=== PATIENT | female | born 1960 | race Caucasian/White ===

== ENCOUNTER 2019-06-29 14:53 | Emergency (ER) | payer OTHER, SELFPAY ==
--- NOTE | ~2019-06-29 | XR_ITS ---
EXAMINATION: XR ankle RT min 3V EXAM DATE: 06/29/2019 15:18 INDICATION: Initial encounter following injury, with pain of the right ankle. TECHNIQUE: Right ankle frontal, lateral and oblique projections obtained and reviewed. There is no p rior study for comparison. FINDINGS: There is acute nondisplaced fracture through the tip of the lateral malleolus, closed post traumatic finding. There is overlying soft tissue swelling. No other acute findings. Mortise relatio nship appears intact. IMPRESSION: Acute nondisplaced right lateral malleolar tip fracture. Reviewed, dictated and finalized at location A.
[2019-06-29 15:08] VITALS: BP 148/119; PULSE 90; RESP 18; TEMP 36.7; O2SAT 100
--- NOTE | 2019-06-29 15:20 | ED.ABDPAIN ---
HPI - Abdominal Pain General Chief Complaint: Extremity Injury, Lower Stated Complaint: ankle injury Time Seen by Provider: 06/29/19 14:59 Source: patient Mode of arrival: ambulatory Limitations: no limitations History of Present Illness HPI narrative: Patient is a 59-year-old female who presents with right ankle pain with bruising and swelling noting that she rolled the ankle while walking 2 days ago was able to bear weight but does have noted increasing ability to do so. Pain is a moderate aching pain worse with weightbearing and activity. Patient denies any other complaints or injuries and on arrival is in the room in no distress Related Data Allergies Allergy/AdvReac Type Severity Reaction Status Date / Time codeine Allergy Mild unknown Verified 06/02/19 14:18 Review of Systems Review of Systems: Narrative: CONSTITUTIONAL: Denies fever, chills, or sweats. SKIN: Positive for bruising and swelling MUSCULOSKELETAL: Positive for bruising and swelling and right ankle pain NEUROLOGIC: Denies numbness or tingling PMFSH Past Medical History Medical History Anxiety Depression Essential (primary) hypertension Hyperlipidemia Impetigo Surgical History Surgical History No history of previous surgery Family History Family History (Updated 11/16/13 @ 07:13 by DOCTOR UNKNOWN) Father Family history of arthritis Social History Social History Smoking status: Heavy tobacco smoker Second hand tobacco smoke exposure: Yes Smoking end date: 03/22/09 Alcohol intake: current Exam Narrative: Exam Narrative: GENERAL: Well-appearing, well-nourished, and in no acute distress. HEAD: Normocephalic, atraumatic. EYES: PERRLA and EOMI. ENT: Nares clear, no rhinorrhea or epistaxis. Mucous membranes moist. EXTREMITIES: Bruising swelling and tenderness of the right ankle joint no tenderness of the knee SKIN: Warm, dry, no rash. NEURO: No focal deficits. Alert and oriented x3. Cranial nerves II through XII grossly intact. Neurovascularly intact PSYCH: Normal mood and affect. Course Vital Signs Vital signs: Vital Signs Temperature 98.1 F 06/29/19 15:08 Pulse Rate 90 06/29/19 15:08 Respiratory Rate 18 06/29/19 15:08 Blood Pressure 148/119 H 06/29/19 15:08 Pulse Oximetry 100 06/29/19 15:08 Temperature 98.1 F 06/29/19 15:08 Pulse Rate 90 06/29/19 15:08 Respiratory Rate 18 06/29/19 15:08 Blood Pressure 148/119 H 06/29/19 15:08 Pulse Oximetry 100 06/29/19 15:08 MDM - Abdominal Pain MDM Narrative Medical decision making narrative: Patients injury or pain is consistent with musculoskeletal etiology. No signs of neurological or vascular compromise on exam. Compartments and tisues are soft without signs of compartment syndrome. Pain is felt appropriate for further evaluation on an outpatient basis. Imaging Data Radiologist's impression: ITS Impressions Ankle X-Ray 06/29/19 15:23 IMPRESSION: Acute nondisplaced right lateral malleolar tip fracture. Discharge Plan Discharge Clinical Impression: Ankle fracture, right Patient Disposition: Home, Self-Care Condition: Stable Instructions: Antibiotic Form, Ankle Fracture (DC) Additional Instructions: Wear brace with no weight on the affected leg until able to bear weight without pain. Ice and elevate extremity. Pain medication as needed and directed. Follow-up with orthopedic surgery tomorrow to set up for reevaluation. Return if symptoms worsen or concerns or any increase in redness swelling pain fever over 100.5 or any loss of feeling or function in the extremity Prescriptions: No Action sulfamethoxazole-trimethoprim [Bactrim DS] 800-160 mg tablet 1 tablet PO Q12H Qty: 14 RF: 0 sertraline [Zoloft] 50 mg tablet 150 mg PO DAILY
== END 2019-06-29 16:32 | disposition home or self-care (01) ==
PROVIDERS: Emergency Provider Emergency Medicine
DX: S82.61XA Displaced fracture of lateral malleolus of right fibula, initial encounter for closed fracture (principal); E78.5 Hyperlipidemia, unspecified; I10 Essential (primary) hypertension; F41.9 Anxiety disorder, unspecified; X50.9XXA Other and unspecified overexertion or strenuous movements or postures, initial encounter
CPT/HCPCS: 29515; 73610; 99284

== ENCOUNTER 2019-12-02 13:09 | Emergency (ER) | payer OTHER, SELFPAY ==
[2019-12-02 13:20] VITALS: BP 142/82; PULSE 92; RESP 20; TEMP 36.4; O2SAT 99
--- NOTE | 2019-12-02 13:27 | ED.WOUNDLAC ---
HPI - Wound/Laceration General Chief Complaint: Wound/Laceration Stated Complaint: pos nose infection Time Seen by Provider: 12/02/19 13:27 Source: patient History of Present Illness HPI narrative: patient presents with a month long history of sinus pressure and sore to the base of the right nares. Patient states she has taken Augmentin and recently finished Levaquin and prednisone. Patient continues to have problems with sore to right nares. Patient continues to have pressure to right side of face. no fever no cough no body aches. patient is not taking anything over the counter for her symptoms. Related Data Allergies Allergy/AdvReac Type Severity Reaction Status Date / Time codeine Allergy Mild unknown Verified 08/09/19 10:30 Review of Systems Review of Systems: Narrative: CONSTITUTIONAL: Denies fever, chills, or sweats. EYES: Denies visual changes, redness, or discharge. ENT: Denies rhinorrhea, congestion, sore throat, or otalgia.sore to base of right nare right sided facial tenderness CARDIOVASCULAR: Denies chest pain, palpitations, or edema. RESPIRATORY: Denies cough or dyspnea. GASTROINTESTINAL: Denies abdominal pain, nausea, vomiting, or diarrhea. GENITOURINARY: Denies dysuria or hematuria. SKIN: Denies rash or itching. MUSCULOSKELETAL: Denies back pain, joint pain, or myalgia. NEUROLOGIC: Denies headache, numbness, or weakness. PSYCHIATRIC: Denies anxiety or depression. [facility] Social History Social History Smoking packs per day: 0.15 Smoking cigarettes per day: 3.0 Smoking status: Light tobacco smoker Second hand tobacco smoke exposure: Yes Smoking end date: 03/22/09 Alcohol intake: never Substance use: unknown Additional occupation/education comments: [employer] Gender identity (if verbalized by the patient): Female Comments At time of signature, agree with nursing past medical, surgical, social and family history. There is no relevant family history pertinent to the presenting complaint Exam Narrative: Exam Narrative: GENERAL: Well-appearing, well-nourished, and in no acute distress. HEAD: Normocephalic, atraumatic. EYES: PERRLA and EOMI. ENT: Nares clear, no rhinorrhea or epistaxis. Mucous membranes moist.0.5 mm reddened tender area to base of right nare no drainage . mild maxillary tenderness no pharyngeal erythema mild post nasal drainage. NECK: Supple. CHEST: Clear to auscultation. No respiratory distress. HEART: Regular rate and rhythm. No murmur heard. Normal peripheral pulses. ABDOMEN: Soft, nontender, nondistended, normal active bowel sounds. EXTREMITIES: Normal range of motion. No edema. SKIN: Warm, dry, no rash. NEURO: No focal deficits. Alert and oriented x3. [place] Coma Scale Eye Opening: Spontaneous 4 [place] Coma Scale Motor: Obeys Commands 6 Leeanne Coma Scale Verbal: Oriented 5 [place] Coma Scale Total 15 Course Vital Signs Vital signs: Vital Signs Temperature 36.4 C 12/02/19 13:20 Pulse Rate 92 12/02/19 13:20 Respiratory Rate 12/02/19 13:20 Blood Pressure 142/82 H 12/02/19 13:20 Pulse Oximetry 99 12/02/19 13:20 Temperature 36.4 C 12/02/19 13:20 Pulse Rate 92 12/02/19 13:20 Respiratory Rate 12/02/19 13:20 Blood Pressure 142/82 H 12/02/19 13:20 Pulse Oximetry 99 12/02/19 13:20 Please YASMINE schedule a followup visit with your personal physician for further evaluation and treatment. Including recheck and discussion of your blood pressure. If your symptoms persist, change or worsen significantly before you can contact your personal physician then please, without delay, go to the emergency department for further evaluation MDM - Wound/Laceration Differential Diagnosis Differential diagnosis: Likely laceration, abscess, abrasion and other Critical Care Time Critical Care Time Critical Care Time: No Discharge Plan Discharge Clinical Impression: Nasal s
== END 2019-12-02 13:34 | disposition home or self-care (01) ==
PROVIDERS: Emergency Provider Nurse Practitioner Family; PCP Family Medicine
DX: J34.89 Other specified disorders of nose and nasal sinuses (principal); J32.9 Chronic sinusitis, unspecified; F17.210 Nicotine dependence, cigarettes, uncomplicated; I25.10 Atherosclerotic heart disease of native coronary artery without angina pectoris; E78.00 Pure hypercholesterolemia, unspecified; I10 Essential (primary) hypertension; F32.9 Major depressive disorder, single episode, unspecified
CPT/HCPCS: 99213; G0463

== ENCOUNTER 2020-04-20 10:18 | Emergency (ER) | payer OTHER, SELFPAY ==
--- NOTE | 2020-04-20 10:24 | ED.GENADULT ---
HPI - General Adult General Chief complaint: Upper Respiratory Infection Stated complaint: POS nose infection Time Seen by Provider: 04/20/20 10:25 Source: patient Mode of arrival: ambulatory Limitations: no limitations History of Present Illness HPI narrative: 59-year-old female patient presents to [facility] with complaints of sores to the nostrils as well as feeling like there are sores inside her nostrils. Patient states she has been dealing with this on again off again for the past 7 months. Patient also reports pressure underneath her eyes and a headache. Denies any fevers that she is aware of. Patient denies any coughing, chest pain or shortness of breath. Patient states she was treated with antibiotics early on and it did help however she has been using Bactroban which she states has not helped she is also reported that she has been using Abreva to the nose which she states does help with the pain at times. Patient also states that she did use Flonase and Claritin every once about but nothing consistent. Related Data Allergies Allergy/AdvReac Type Severity Reaction Status Date / Time codeine Allergy Mild Vomiting Verified 04/20/20 10:44 Review of Systems Review of Systems: Narrative: CONSTITUTIONAL: Denies fever, chills, or sweats. EYES: Denies visual changes, redness, or discharge. ENT: Positive rhinorrhea, congestion, denies sore throat, or otalgia. CARDIOVASCULAR: Denies chest pain, palpitations, or edema. RESPIRATORY: Denies cough or dyspnea. GASTROINTESTINAL: Denies abdominal pain, nausea, vomiting, or diarrhea. GENITOURINARY: Denies dysuria or hematuria. SKIN: Denies rash or itching. MUSCULOSKELETAL: Denies back pain, joint pain, or myalgia. NEUROLOGIC: Positive headache, denies numbness, or weakness. PSYCHIATRIC: Denies anxiety or depression. [facility] Past Medical History Medical History (Updated 04/20/20 @ 10:49 by GONZÁLEZ Kirkland) Anxiety Arthritis Depression Essential (primary) hypertension Fracture of distal fibula (06/27/19) High cholesterol Hyperlipidemia Hypertension Impetigo Seasonal allergies Surgical History Surgical History No history of previous surgery Family History Family History Father Family history of arthritis Other Hypertension Social History Social History Smoking packs per day: 0.15 Smoking cigarettes per day: 3.0 Smoking status: Light tobacco smoker Second hand tobacco smoke exposure: Yes Smoking end date: 03/22/09 Alcohol intake: never Substance use: unknown 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 There is no relevant family history pertinent to the presenting complaint. Exam Narrative: Exam Narrative: GENERAL: Well-appearing, well-nourished, and in no acute distress. HEAD: Normocephalic, atraumatic. Tenderness noted to maxillary sinuses on palpation EYES: PERRLA and EOMI. ENT: Nares with erythema and edema noted bilaterally, there are some sores noted to the outside of bilateral nostrils. No rhinorrhea or epistaxis. Mucous membranes moist. Posterior pharynx with no erythema, tonsillar Tobin, exudates or lesions present. Bilateral TMs are clear no erythema or foreign bodies in the canal. NECK: Supple. No lymphadenopathy CHEST: Clear to auscultation. No respiratory distress. HEART: Regular rate and rhythm. No murmur heard. Normal peripheral pulses. ABDOMEN: Soft, nontender, nondistended, normal active bowel sounds. EXTREMITIES: Normal range of motion. No edema. SKIN: Warm, dry, no rash. NEURO: No focal deficits. Alert and oriented x3. Course Vital Signs Vital signs: Vida
[2020-04-20 10:35] VITALS: BP 111/78; PULSE 84; RESP 18; TEMP 37.2; O2SAT 97
== END 2020-04-20 11:08 | disposition home or self-care (01) ==
PROVIDERS: Emergency Provider Nurse Practitioner Family; PCP Nurse Practitioner Family
DX: J32.0 Chronic maxillary sinusitis (principal); F17.210 Nicotine dependence, cigarettes, uncomplicated; M19.90 Unspecified osteoarthritis, unspecified site; F41.9 Anxiety disorder, unspecified; F32.9 Major depressive disorder, single episode, unspecified; I10 Essential (primary) hypertension; E78.00 Pure hypercholesterolemia, unspecified; E78.5 Hyperlipidemia, unspecified
CPT/HCPCS: 99213; G0463

== ENCOUNTER 2021-08-31 12:56 | Emergency (ER) | payer OTHER, SELFPAY ==
[2021-08-31 12:58] VITALS: BP 155/103; PULSE 91; RESP 16; TEMP 36.7; O2SAT 100
--- NOTE | 2021-08-31 13:23 | ED.SKABFB ---
HPI - Skin/Abscess/Foreign Bdy General Chief complaint: Skin/Abscess/Foreign Body Stated complaint: Pain/Swelling In Nose since 08/20/21 Time Seen by Provider: 08/31/21 13:09 Source: patient and RN notes reviewed Mode of arrival: ambulatory Limitations: no limitations History of Present Illness HPI narrative: This is a 61 year old female who presents for evaluation of chronic sinusitis. PAtient states for 2 years she has right side pressure with sinus drainage. She also reports postnasal drainage for 2 years. She also reports foul odor and drainage for 2 years. She was seen by a server support technician 1 week ago, and she reports they performed a biopsy and she was placed on antibiotics. She is taking doxycycline. She denies fever, chills, nausea, vomiting or headache. She describes her sinus pain as burning. Related Data Allergies Allergy/AdvReac Type Severity Reaction Status Date / Time codeine Allergy Mild Vomiting Verified 05/19/21 14:19 Review of Systems Review of Systems: All systems reviewed & are unremarkable except as noted in HPI and below PMFSH Past Medical History Medical History (Updated 08/31/21 @ 13:32 by Jodi Joyner MD) Anxiety Arthritis Depression Essential (primary) hypertension Fracture of distal fibula (06/27/19) High cholesterol Hyperlipidemia Hypertension Impetigo Seasonal allergies Surgical History Surgical History (System 05/19/21 @ 14:19 by Maxine Hurst) No history of previous surgery Family History Family History (System 05/19/21 @ 14:19 by Maxine Hurst) Father Family history of arthritis Other Hypertension Social History Social History (System 05/19/21 @ 14:19 by Maxine Hurst) Smoking packs per day: 0.15 Smoking cigarettes per day: 3.0 Second hand tobacco smoke exposure: Yes Smoking end date: 03/22/09 Alcohol intake: never Substance use: unknown Additional occupation/education comments: [employer] Gender identity (if verbalized by the patient): Female Exam Const: General: no acute distress Nutritional Appearance: well nourished Orientation/consciousness: patient oriented x3 HENMT: General nose exam: Nasal discharge present mucoid and no epistaxis Face and sinus: sinuses nontender Mouth: Yes Normal oral and palatal mucosa present, Yes lip normal and Yes moist mucous membranes Teeth and gingiva: dentition normal Throat: posterior oropharynx normal Eyes: Pupils: Equal, round and reactive pupils present Other: disconjugate gaze which is baseline Chest: Chest palpation & inspection: normal inspection of the chest Resp: Effort & Inspection: normal respiratory effort Skin: General skin exam: normal color Rashes: no rashes Wounds: no wounds Neuro: General: patient oriented x3, moves all extremities and CN's II-XI intact bilaterally Course Reevaluation(s) Reevaluation #1: I Discussed with patient this is chronic sinusitis. Will change antibiotics and discussed she will need to follow up with ENT and her server support technician. Date: 08/31/21 Time: 13:29 Vital Signs Vital signs: Vital Signs Temperature 98.1 F 08/31/21 12:58 Pulse Rate 91 08/31/21 12:58 Respiratory Rate 16 08/31/21 12:58 Blood Pressure 155/103 H 08/31/21 12:58 Pulse Oximetry 100 08/31/21 12:58 Oxygen Delivery Room Air 08/31/21 12:58 Temperature 98.1 F 08/31/21 12:58 Pulse Rate 91 08/31/21 12:58 Respiratory Rate 16 08/31/21 12:58 Blood Pressure 155/103 H 08/31/21 12:58 Pulse Oximetry 100 08/31/21 12:58 Oxygen Delivery Room Air 08/31/21 12:58 Discharge Plan Discharge Clinical Impression: Chronic sinusitis Patient Disposition: Home, Self-Care Condition: Stable Instructions: Antibiotic Form, Sinusitis (ED) Additional Instructions: I recommend you take new antibiotics and antihistamine. I also recommend that you follow up with ear nose and throat doctor. You may need to follow up with
== END 2021-08-31 13:49 | disposition home or self-care (01) ==
LOC: ANHED 13:43
PROVIDERS: Emergency Provider General Practice
DX: J32.9 Chronic sinusitis, unspecified (principal); I10 Essential (primary) hypertension; E78.5 Hyperlipidemia, unspecified; M19.90 Unspecified osteoarthritis, unspecified site; F41.9 Anxiety disorder, unspecified; F32.A Depression, unspecified
CPT/HCPCS: 99283

== ENCOUNTER 2022-10-08 09:36 | Emergency (ER) | payer OTHER, SELFPAY ==
[2022-10-08 09:46] VITALS: BP 126/69; PULSE 114; RESP 18; TEMP 37.6; O2SAT 100
--- NOTE | 2022-10-08 10:04 | ED.EXTPRO ---
HPI - Extremity Problem General Chief complaint: Extremity Problem,Nontraumatic Stated complaint: Lt Groin and Hip Pain Time Seen by Provider: 10/08/22 10:05 Source: patient Mode of arrival: ambulatory Limitations: no limitations History of Present Illness HPI Narrative: 62 y/o female presented for c/o left groin pain radiating to mid thigh for 4 days. States she thinks the injury occurred while lifting 's wheelchair, says she may have twisted wrong. Patient reports she is unable to bear weight, sit or lift the leg without pain. Pt was unable to sleep last night due to pain. Taking vane back and body and advil pm without relief. Denies rash, numbness, tingling or weakness to the left leg. Related Data Home Medications Medication Instructions Recorded Confirmed lisinopril 20 mg tablet 20 mg PO DAILY 10/08/22 10/08/22 simvastatin 40 mg tablet 40 mg PO DAILY 10/08/22 10/08/22 Allergies Allergy/AdvReac Type Severity Reaction Status Date / Time codeine Allergy Mild Vomiting Verified 10/08/22 09:55 Review of Systems Review of Systems: CONSTITUTIONAL: Denies body aches, fever, chills EYES: Denies visual changes ENT: Denies rhinorrhea, congestion CARDIOVASCULAR: Denies chest pain, palpitations, or edema. RESPIRATORY: Denies cough or dyspnea. GASTROINTESTINAL: Denies abdominal pain, nausea, vomiting, or diarrhea. SKIN: Denies rash, itching, or wounds. MUSCULOSKELETAL: Reports left groing/thigh pain Denies back pain, joint pain, or myalgia. NEUROLOGIC: Denies headache, numbness, tingling, or weakness. All systems reviewed & are unremarkable except as noted in HPI and below PMFSH Past Medical History Medical History Anxiety Arthritis Depression Essential (primary) hypertension Fracture of distal fibula (06/27/19) High cholesterol Hyperlipidemia Hypertension Impetigo Seasonal allergies Surgical History Surgical History No history of previous surgery Family History Family History Father Family history of arthritis Other Hypertension Social History Social History Smoking packs per day: 0.15 Smoking cigarettes per day: 3.0 Second hand tobacco smoke exposure: Yes Smoking end date: 03/22/09 Alcohol intake: never Substance use: unknown Occupation/Education: occupation 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 Please see nursing chart for further information. There is no relevant family history pertinent to the presenting complaint Exam Narrative: GENERAL: Appears in mild pain, in no acute distress. HEAD: Normocephalic, atraumatic. EYES: conjunctivae clear CHEST: Speaks in full sentences. No respiratory distress. HEART: Regular rate and rhythm. Normal and equal peripheral pulses. EXTREMITIES: LLE has limited strength and decreased range of motion at the hip due to reported pain with any movement of the hip or groin area. Reports pain with light palpation over the anterior thigh and hip flexor area. No posterior hip tenderness. No edema. Normal sensation. No open wounds, skin tenting or obvious deformity; alignment normal, pulse palpable and equal bilaterally, skin warm, dry, pink. Capillary refill less than 3 seconds. Patient is ambulatory without assistive device, slow gait. Able to tolerate sitting position. SKIN: Warm, dry, no rash. NEURO: Alert and oriented x3. PSYCH: Normal mood and affect Course Course Emergency Course: Patient is aware of diagnosis, understands and agrees to treatment plan. Anticipatory guidance giv
== END 2022-10-08 10:18 | disposition home or self-care (01) ==
PROVIDERS: Emergency Provider Nurse Practitioner Family; PCP Family Medicine Sports Medicine
DX: M79.652 Pain in left thigh (principal); Z87.891 Personal history of nicotine dependence; M19.90 Unspecified osteoarthritis, unspecified site; I10 Essential (primary) hypertension; E78.00 Pure hypercholesterolemia, unspecified; E78.5 Hyperlipidemia, unspecified; F41.9 Anxiety disorder, unspecified; F32.A Depression, unspecified
CPT/HCPCS: 99213; G0463

== ENCOUNTER 2022-10-12 15:53 | Inpatient (IN) | payer OTHER, SELFPAY ==
[2022-10-12] VITALS (22 sets, daily range): BP systolic 109–129; BP diastolic 53–90; PULSE 115–165; RESP 16–38; TEMP 37.6; O2SAT 90–100; BMI 22.8
--- NOTE | ~2022-10-12 | XR_ITS ---
Portable chest x-ray Comparison: 10/14/2022 Clinical History: Intubation Findings: Endotracheal tube, NG tube, and right IJ line are unchanged. Minimal left pleural effusion is present. Right lung clear. Cardiomediastinal silhouette is stable. Bones and soft tissues are un remarkable. Impression: Support tubes, as above. Minimal left pleural effusion. Reviewed, dictated and finalized at location . Impression: Support tubes, as above. Minimal left pleural effusion.
--- NOTE | ~2022-10-12 | XR_ITS ---
Portable chest x-ray Comparison: 10/12/2022 Clinical History: Central line placement Findings: Endotracheal tube, NG tube, and right IJ line are in satisfactory positions. No pneumothor ax. Possible minimal groundglass opacity bilaterally. Cardiomediastinal silhouette is stable. Bones and soft tissues are unremarkable. Impression: Support tubes, as above. No pneumothorax. Possible mild ground glass pulmonary disease. Correlate for pulmonary edema or infection. Reviewed, dictated and finalized at location . Impression: Support tubes, as above. No pneumothorax. Possible mild ground glass pulmonary disease. Correlate for pulmonary edema or infection.
--- NOTE | ~2022-10-12 | XR_ITS ---
Supine portable view of the abdomen Clinical history: NG tube placement Findings: NG tube is in satisfactory position. Bowel gas pattern is nonspecific. No evidence for obst ruction or free air. No abnormal mass lesion or calcification is seen. Osseous structures are intact. Impression: NG tube in satisfactory position. Reviewed, dictated and finalized at location . Impression: NG tube in satisfactory position.
--- NOTE | ~2022-10-12 | US_ITS ---
Renal-Bladder ultrasound Clinical History: Acute kidney injury Technique: Real-time sonographic imaging of the kidneys and urinary bladder was performed. Findings: The right kidney measures 10.3 cm in length and the left kidney measures 10 point cm. There is no hydronephrosis or renal calculus identified. Renal cortical echogenicity is within normal limi ts. No solid renal mass lesion is identified. Small right renal cysts are present. Minimal right mily nephric fluid present. The urinary bladder is relatively collapsed, with Pizano catheter in place. Impression: No hydronephrosis. Minimal right perinephric fluid. Reviewed, dictated and finalized at location . Impression: No hydronephrosis. Minimal right perinephric fluid.
--- NOTE | ~2022-10-12 | CT_ITS ---
Clinical Indication: Fever CT Scan of the Chest, Abdomen, and Pelvis without Contrast: Technique: Contiguous sections were acquired throughout the chest, abdomen, and pelvis without IV con trast administration. Dose reduction technique was used on this scan by utilizing automated exposure control and iterative reconstruction technique. The dose-length product (DLP) was 813.50 mGy-cm. Comparison: 10/12/2022 Findings: There is no evidence of any significant mediastinal, hilar or axillary lymphadenopathy. The mediastin al soft tissues appear normal. No pericardial effusion. There are small bilateral pleural effusions with probable bibasilar atelectasis. The liver, spleen, pancreas, gallbladder, and adrenal glands are within normal limits. There is mild right hydronephrosis, with bilateral perinephric stranding. No renal or ureteral stones evident. No e vidence of aortic aneurysm. No lymphadenopathy. No bowel obstruction or bowel wall thickening. There is no evidence to suggest acute appendicitis. Small bubbles of air present in the urinary bladder. No adnexal mass seen. Small amount of pelvic asc ites. Impression: Small bilateral pleural effusions with bibasilar atelectasis. Mild right hydronephrosis and bilateral positioning. Noncontrast CT is insensitive for pyelonephritis . Correlate clinically and with urinalysis. Consider contrast enhanced CT to evaluate for pyelonephri tis, as indicated. Small amount of ascites, nonspecific. Small bubble of air in urinary bladder, most likely iatrogenic. Correlate clinically. Reviewed, dictated and finalized at [facility]. Impression: Small bilateral pleural effusions with bibasilar atelectasis. Mild right hydronephrosis and bilateral positioning. Noncontrast CT is insensit gregor for pyelonephritis. Correlate clinically and with urinalysis. Consider cont rast enhanced CT to evaluate for pyelonephritis, as indicated. Small amount of ascites, nonspecific. Small bubble of air in urinary bladder, most likely iatrogenic. Correlate clini chucky.
--- NOTE | ~2022-10-12 | CT_ITS ---
EXAMINATION: CT cervical spine wo con DATE: 10/12/2022 16:42 INDICATION: Altered mental status TECHNIQUE: Computed tomography (CT) of the cervical spine was performed without intravenous contrast. Automated exposure control and iterative reconstruction technique were employed. The dose-length pro duct was 505.12 mGy-cm. COMPARISON: None FINDINGS: Straightening of the normal cervical lordosis. 2 mm anterolisthesis C3 on C4 and T1 on T2. Chronic ap pearing mild anterior wedging at C3-C5. No acute fractures identified. Moderate disc height loss at C 5-C6 and severe disc height loss with degenerative endplate changes at T3-T4. Mild disc height loss a t C3-C4 and T1-T2. Severe right-sided and moderate left-sided uncovertebral osteoarthritis at C5-C6. Small posterior disc ossified complexes result in mild central canal stenosis at this level. Mild unc overtebral osteoarthritis bilaterally at multiple additional cervical levels. There is also multileve l facet osteoarthritis, severe on the left at C2-C3 through C4-C5 and on the right at T1-T2, moderate on the left at C5-C6 through C7-T1 and mild at the remaining cervical and upper thoracic levels on t he left and right. This contributes to moderate neural foraminal stenosis on the left at C3-C4 throug h C5-C6 and on the right at C5-C6 with mild neural foraminal stenosis at several additional levels bi laterally in the cervical and upper thoracic spine. Severe osteoarthritis at the bilateral sternoclav icular joints atherosclerotic calcifications at the bilateral carotid bulbs. Cervical soft tissues ar e otherwise unremarkable. Mild dependent atelectasis in the posterior upper lobes. IMPRESSION: 1. Moderate to severe cervical and upper thoracic spondylosis. No acute osseous abnormality. Reviewed, dictated and finalized at location A.
--- NOTE | ~2022-10-12 | US_ITS ---
US abdomen limited DATE: 10/17/2022 08:52 INDICATION: Elevated liver function tests TECHNIQUE: Real-time imaging of liver, pancreas, gallbladder COMPARISON: 10/08/2022 CTA chest abdomen pelvis FINDINGS: No hepatic space-occupying mass lesion is evident. No pancreatic mass lesion is evident. Normal hepatopedal portal venous flow direction. Common bile duct measures 5.8 mm, within normal limits. No gallstones or gallbladder wall thickening are evident. Negative sonographic Raymond's sign. IMPRESSION: No significant abnormality Reviewed, dictated and finalized at Location [facility]. Reviewed, dictated and finalized at location A. IMPRESSION: No significant abnormality
--- NOTE | ~2022-10-12 | MR_ITS ---
EXAMINATION: MR brain/brain stem wo con DATE: 10/20/2022 17:22 INDICATION: AMS TECHNIQUE: Magnetic resonance imaging (MRI) of the brain and brainstem was performed without intraven ous contrast. Sequences included sagittal and axial T1-weighted SE, axial diffusion-weighted FS EPI A SSET, axial T2*-weighted GRE, axial T2-weighted FLAIR Propeller, and axial T2-weighted Propeller. Sasha arent diffusion coefficient (ADC) maps were created. COMPARISON: CT brain 10/12/2022. FINDINGS: Multiple areas of focal diffusion restriction involving gyri in the right occipital and posterior fro ntal lobes, the right centrum semiovale, left anterior and posterior periventricular white matter, an d the posterior limb of the left internal capsule. No MRI evidence of hemorrhage or extra-axial colle ction. No suspicious foci of susceptibility to suggest prior intraparenchymal hemorrhage. Normal whit e matter signal. No evidence of advanced or lobar predominant parenchymal volume loss. The basilar ci sterns are patent. Flow voids are preserved. Paranasal sinuses are within normal limits. Globes and o rbital contents are within normal limits. IMPRESSION: Multiple areas of focal acute infarct in multiple lobes and both hemispheres, likely representing emb olic infarcts. Reviewed, dictated and finalized at location K. IMPRESSION: Multiple areas of focal acute infarct in multiple lobes and both hemispheres, l brindaely representing embolic infarcts.
--- NOTE | ~2022-10-12 | XR_ITS ---
Portable chest x-ray Comparison: 04/12/2013 Clinical History: Tube placement Findings: Endotracheal tube and NG tube are in satisfactory positions. Questionable minimal central pulmonary edema/congestive change. No pleural effusion. Cardiomediastinal silhouette is stable. Bone s and soft tissues are unremarkable. Impression: Support tubes in place, as above. Possible minimal central pulmonary edema/central congestive change. Reviewed, dictated and finalized at location . Impression: Support tubes in place, as above. Possible minimal central pulmonary edema/central congestive change.
--- NOTE | ~2022-10-12 | US_ITS ---
EXAMINATION: US venous doppler [facility] DATE: 10/22/2022 20:25 INDICATION: Bilateral lower limb swelling and mottling TECHNIQUE: Hudson scale images without and with compression and Doppler images of the bilateral lower e xtremity veins were obtained. COMPARISON: None FINDINGS: The right common femoral vein, profunda femoral vein, femoral vein, popliteal vein, peroneal trunk, p osterior tibial veins, and greater saphenous vein are patent. The left common femoral vein, profunda femoral vein, femoral vein, popliteal vein, peroneal trunk, po sterior tibial veins, and greater saphenous vein are patent. IMPRESSION: 1. Patent bilateral lower extremity veins. No evidence of deep venous thrombosis. Reviewed, dictated and finalized at location F. IMPRESSION: 1. Patent bilateral lower extremity veins. No evidence of deep venous thrombosi s.
--- NOTE | ~2022-10-12 | XR_ITS ---
EXAMINATION: XR chest PICC line DATE: 10/24/2022 12:08 INDICATION: PICC line insertion TECHNIQUE: frontal view of the chest was obtained. COMPARISON: Chest radiograph dated 10/18/[address] dated 10/19/2022 FINDINGS: Right upper extremity peripherally inserted central venous catheter (PICC) tip at the superior cavoa trial junction. Lung volumes are mildly decreased. No focal airspace opacities, pulmonary edema, pleu ral effusion or pneumothorax. Mild cardiomegaly. IMPRESSION: 1. Right upper extremity PICC line with distal tip at the superior cavoatrial junction. 2. Mild cardiomegaly. Reviewed, dictated and finalized at location A. IMPRESSION: 1. Right upper extremity PICC line with distal tip at the superior cavoatrial j unction. 2. Mild cardiomegaly.
--- NOTE | ~2022-10-12 | CT_ITS ---
EXAMINATION: CT brain wo con DATE: 10/12/2022 16:42 INDICATION: Altered mental status TECHNIQUE: Computed tomography (CT) of the head was performed without intravenous contrast. Sagittal and coronal reconstructions were performed. The mA was adjusted according to patient size. Iterative reconstruction technique was employed. The dose-length product was 605.33 mGy-cm. COMPARISON: None FINDINGS: No acute intracranial hemorrhage, acute infarction or abnormal extra axial fluid collection. There is mild scattered white matter hypoattenuation consistent with chronic small vessel ischemic disease. Ventricles are normal and symmetric. No mass/mass effect. Mild mucosal thickening the anterior right ethmoid air cells. The orbits and mastoid air cells are normal. Intracranial calcified cerebral ather osclerosis is noted. IMPRESSION: 1. No acute intracranial process. 2. Mild scattered white matter hypoattenuation consistent with chronic small vessel schema disease. Reviewed, dictated and finalized at location A. IMPRESSION: 1. No acute intracranial process. 2. Mild scattered white matter hypoattenuation consistent with chronic small ve ssel schema disease.
--- NOTE | ~2022-10-12 | XR_ITS ---
Portable chest x-ray Comparison: 10/15/2022 Clinical History: Respiratory failure Findings: Endotracheal tube, NG tube, and right IJ line are in satisfactory positions. Small left pl eural effusion is present. Right lung essentially clear. Cardiomediastinal silhouette is stable. Bon es and soft tissues are unremarkable. Impression: Support tubes, as above. Small left pleural effusion. Reviewed, dictated and finalized at location M. Impression: Support tubes, as above. Small left pleural effusion.
--- NOTE | ~2022-10-12 | XR_ITS ---
Portable chest x-ray Comparison: 10/13/2022 Clinical History: Tube placement Findings: Endotracheal tube, NG tube, and right IJ line are in satisfactory positions. Probable mini mal left pleural effusion and left basilar atelectatic change. Right lung clear. Cardiomediastinal s ilhouette is stable. Bones and soft tissues are unremarkable. Impression: Support tubes, as above. Probable minimal left pleural effusion and left basilar atelectasis. Reviewed, dictated and finalized at location . Impression: Support tubes, as above. Probable minimal left pleural effusion and left basilar atelectasis.
--- NOTE | ~2022-10-12 | XR_ITS ---
AP and lateral views of the left hip Clinical history: Pain Findings: No acute fracture or dislocation is seen. Osseous alignment is anatomic. Left hip joint and left SI joint are intact. Soft tissues are unremarkable. Impression: No significant abnormality is seen. Reviewed, dictated and finalized at [facility]. Impression: No significant abnormality is seen.
--- NOTE | ~2022-10-12 | CT_ITS ---
Clinical Indication: Shortness of breath, abdominal pain CT Scan of the Chest, Abdomen, and Pelvis with Contrast: Technique: Contiguous sections were acquired throughout the chest, abdomen, and pelvis after intraven ous administration of 100 cc of Omnipaque 350. Dose reduction technique was used on this scan by ventura fenging automated exposure control and iterative reconstruction technique. The dose-length product (DL P) was 989.14 mGy-cm. Findings: There is no evidence of any significant mediastinal, hilar or axillary lymphadenopathy. The mediastin al soft tissues appear normal. No pulmonary embolus identified. No aortic aneurysm or dissection iden tified. There is no evidence of pleural or pericardial effusion. There is mild dependent atelectatic change. There is respiratory motion artifact which otherwise mild ly limits evaluation, but no other gross pulmonary abnormality seen. The liver, spleen, pancreas, gallbladder, and adrenal glands are within normal limits. There is mild perinephric fluid bilaterally, nonspecific. Probable motion artifact versus questionable pyelonephrit is. No evidence of aortic aneurysm. No lymphadenopathy. No bowel obstruction or bowel wall thickening. There is no evidence to suggest acute appendicitis. Urinary bladder is unremarkable. No pelvic mass identified. No ascites. Impression: Questionable pyelonephritis versus motion artifact resulting in heterogeneous appearance of the kidne ys. Correlate clinically and with urinalysis. Mild dependent atelectatic change, otherwise no significant abnormality seen in the lungs. No pulmonary embolus identified. Reviewed, dictated and finalized at [facility]. Impression: Questionable pyelonephritis versus motion artifact resulting in heterogeneous a ppearance of the kidneys. Correlate clinically and with urinalysis. Mild dependent atelectatic change, otherwise no significant abnormality seen in the lungs. No pulmonary embolus identified.
--- NOTE | ~2022-10-12 | XR_ITS ---
XR chest 1V portable DATE: 10/18/2022 05:37 INDICATION: Respiratory distress TECHNIQUE: Portable AP chest on 10/18/2022 at 0524 hours COMPARISON: Portable AP chest on 10/16/2022 at 0533 hours FINDINGS: ET tube in satisfactory position 3.8 cm above jerome. NG tube in stomach. Right internal jugular central venous catheter tip overlies superior vena cava. Cardiomegaly. Left lower lobe infiltrate and/atelectasis. Small left pleural effusion is suggested. Osteopenia. IMPRESSION: Left lower lobe infiltrate or atelectasis and small left pleural effusion Reviewed, dictated and finalized at location A. IMPRESSION: Left lower lobe infiltrate or atelectasis and small left pleural ef fusion
--- NOTE | 2022-10-12 15:59 | ECG_ITS ---
Measurements Intervals [place] Rate: 124 P: 49 [place]: 135 QRS: 44 QRSD: 93 T: 41 QT: 325 QTc: 467 Interpretive Statements SINUS TACHYCARDIA BASELINE ARTIFACT- I, III, AVR, AVL, AVF, V3 ABNORMAL ECG NO PREVIOUS ECG AVAILABLE FOR COMPARISON Electronically Signed On 10-12-2022 16:47:50 CDT by Mark Ordaz D.O.
[2022-10-12 16:06] LABS: Glucose Point of Care 140 mg/dl (65-105)
[2022-10-12 16:21] LABS: Hemoglobin 11.5 g/dL (12.0-15.0); Mean Corpuscular HGB Conc 32.9 g/dl (32-36); Mean Corpuscular Hemoglobin 30.8 pg (26-34); Mean Corpuscular Volume 93.8 fl (80-100); Mean Platelet Volume 10.2 fl (7.4-10.4); Platelet Count Result 308 k/mm3 (150-375); Red Blood Count 3.73 M/mm3 (4.2-5.4); Red Cell Distribution Width 16.1 % (11.5-14.5); White Blood Count 15.6 K/mm3 (4.5-10.0)
--- NOTE | 2022-10-12 16:30 | PC.NURSE ---
Mottling noted to legs. SPO2 77% on 4l NC. Non rebreather mask applied at 15 l.
[2022-10-12 16:32] LABS: Add Urine Microscopic? YES; Appearance Urine Clear (Clear); Bacteria Urine None Seen /hpf; Bilirubin Urine Negative (Negative); Blood Urine 3+ (Negative); Color Urine Yellow (Yellow); Glucose Urine UA Negative (Negative); Hyaline Casts Urine Present /lpf; Ketones Urine Negative (Negative); Leukocyte Esterase Ur Negative LEU/UL (Negative); Nitrate Urine Negative (Negative); Protein Urine 3+ mg/dL (Negative); RBC Urine 0-2 /hpf (0-2); Specific Grav Ur 1.019 (1.001-1.035); Squamous Epithelial Cell Urine Occasional /hpf (Few); Urobilinogen Urine 0.2 mg/dL (<2.0); WBC Urine 0-5 /hpf
[2022-10-12 16:33] LABS: INR 1.3; Prothrombin Time 17.3 Seconds (11.1-14.7)
[2022-10-12 16:34] LABS: Partial Thromboplastin Time 35.8 SECONDS (22.3-36.8)
[2022-10-12 16:35] LABS: Alanine Aminotransferase 57 U/L (6-35); Albumin Level 3.8 g/dL (3.5-5.1); Alkaline Phosphatase 87 U/L (38-126); Anion Gap 16 mmol/L (8-16); Aspartate Amino Transferase 150 U/L (14-36); Bilirubin,Total 0.6 mg/dL (0.2-1.3); Blood Urea Nitrogen 31 mg/dL (7-17); Calcium 8.7 mg/dL (8.4-10.2); Carbon Dioxide 21 mmol/L (22-30); Chloride 104 mmol/L (98-107); Estimated Glomerular Filt Rate 35; Glucose 152 mg/dL (65-110); Potassium 3.4 mmol/L (3.4-5.0); Sodium 141 mmol/L (137-145)
--- NOTE | 2022-10-12 16:41 | ED.AMS ---
HPI - Altered Mental Status General Chief Complaint: Altered Mental Status Stated Complaint: sepsis Time Seen by Provider: 10/12/22 16:17 History of Present Illness HPI narrative: Pt last seen 5 days ago. EMS sent to do well check on patient and found her on the ground unresponsive and mottled. arrived. Pt was unresponsive today but was responding yesterday. Pt did fall yesterday and was helped up to bed. Pt seen last week at [facility] for hip pain and prescribed cyclobenzaprine Related Data Home Medications Medication Instructions Recorded Confirmed lisinopril 20 mg tablet 20 mg PO DAILY 10/08/22 10/08/22 simvastatin 40 mg tablet 40 mg PO DAILY 10/08/22 10/08/22 Allergies Allergy/AdvReac Type Severity Reaction Status Date / Time codeine Allergy Mild Vomiting Verified 10/08/22 09:55 Review of Systems Review of Systems: ROS unobtainable: Yes unobtainable due to mental status PMFSH Past Medical History Medical History (Updated 10/12/22 @ 18:56 by Alma Amin III, DO) Anxiety Arthritis Depression Essential (primary) hypertension Fracture of distal fibula (06/27/19) High cholesterol Hyperlipidemia Hypertension Impetigo Seasonal allergies Surgical History Surgical History No history of previous surgery Family History Family History Father Family history of arthritis Other Hypertension Social History Social History Smoking packs per day: 0.15 Smoking cigarettes per day: 3.0 Second hand tobacco smoke exposure: Yes Smoking end date: 03/22/09 Alcohol intake: never Substance use: unknown Occupation/Education: occupation Additional occupation/education comments: [employer] Gender identity (if verbalized by the patient): Female Exam Const: Limitations: altered mental status Other: unresponsive Neck: Neck: normal visual inspection and no lymphadenopathy Resp: Auscultation: diminished lung sounds Cardio: Rate: regular rate Rhythm: regular rhythm GI: GI Palp: Yes Soft to palpation Auscultation: normal bowel sounds Skin: Other: mottled Neuro: Other: unresponsive Extrem: General: normal to inspection and no clubbing, cyanosis or edema Psych: Other: unresponsive Course Vital Signs Vital signs: Vital Signs Pulse Rate 121 H 10/12/22 16:02 Respiratory Rate 37 H 10/12/22 16:02 Blood Pressure 118/90 10/12/22 16:02 Temperature 99.7 F H 10/12/22 19:08 Pulse Rate 129 H 10/12/22 19:08 Respiratory Rate 30 H 10/12/22 19:08 Blood Pressure 122/85 10/12/22 19:08 Pulse Oximetry 99 10/12/22 19:08 MDM - Altered Mental Status MDM Narrative Medical decision making narrative: wbc slighlty elevated trop very elevated but ekg does not show stemi, pt given IVF and put on NRB and BP and HR and resp status improved but pt still not responding much. possible overdose with hx of new muscle relaxer. discussed with dr mancera and agrees to ICU admission said might add antibiotics and try narcan (no result). discussed with dr salguero and agrees to consult. discussed with Lela Sauer and agrees to admit. Differential Diagnosis Differential diagnosis: Likely alcoholic intoxication, altered mental status, subarachnoid hemorrhage, sepsis and other (uti pneumonia cva) Medical Records Attestation: I reviewed the patient's medical records. Lab Data 10/12/22 16:09 10/12/22 16:09 Labs: Lab Results 10/12/22 10/12/22 10/12/22 Range/Units 16:03 16:07 16:09 WBC 15.6 H (4.5-10.0) K/mm3 RBC 3.73 L (4.2-5.4) M/mm3 Hgb 11.5 L (12.0-15.0) g/dL Hct 35.0 L (37.0-47.0) % MCV 93.8 (80-100) fl MCH 30.8 (26-34) pg MCHC 32.9 (32-36) g/dl RDW 16.1 H (11.5-14.5) % Plt Count
[2022-10-12 16:49] LABS: Lactic Acid Reflex 1.8 mmol/L (0.7-2.0)
[2022-10-12 16:56] LABS: Band Neutrophils Percent 9 % (0-6); Lymphocytes Absolute Manual 0.46 K/mm3 (1.1-4.5); Monocytes Absolute Manual 0.62 K/mm3 (0.1-0.90); Monocytes Percent Manual 4 % (3-9); Neutrophils Percent Manual 84 % (46-73); Platelet Estimate Adequate (Adequate); Schistocytes None Seen (NORMAL); Total Cells Counted 100
[2022-10-12 16:57] LABS: Anisocytosis 2+ (NORMAL)
[2022-10-12 17:26] LABS: Creatine Kinase 1402 U/L (30-135)
[2022-10-12] MEDS: SODIUM CHLORIDE 0.9% IV 1,000 ML 999 ML IV CONT (17:33)
[2022-10-12 17:52] LABS: Alveolar/Arterial O2 Gradient 545.9 mmHg; Fractional Inspired Oxygen 100 %; HCO3 ABG 16.9 mEq/l (22.0-26.0); Oxygen Content ABG 15.5 %vol (16.0-22.0); Oxygen Saturation ABG 99.1 % (95.0-100.0); Oxyhemoglobin 97.7 % THb (90.0-100.0); PO2 ABG 144.2 mmHg (80.0-100.0); PO2 FiO2 Ratio Arterial Blood 1.44 %; Total Hemoglobin 11.1 g/dL (12.0-18.0); pH ABG 7.485 (7.350-7.450)
[2022-10-12 17:58] LABS: PCO2 ABG 22.9 mmHg (35.0-45.0); Site Drawn LEFT BRACHIAL
[2022-10-12 17:59] LABS: Device NON-REBREATHER MASK
--- NOTE | 2022-10-12 18:40 | PC.NURSE ---
Responds to name but remains disoriented to time and place.
[2022-10-12 18:53] LABS: Barbiturate Screen Urine Negative (Negative); Benzodiazepines Screen Urine Negative (Negative)
[2022-10-12 19:01] LABS: Amphetamine Screen Urine Negative (Negative); Cocaine Screen Urine Negative (Negative); Methadone Screen Urine Negative (Negative); Opiate Screen Urine Negative (Negative); Phencyclidine Screen Urine Negative (Negative)
[2022-10-12] MEDS: NALOXONE HCL 0.4 MG/ML VIAL IV PUSH (19:01)
[2022-10-12] MEDS: PIPERACILLN/TAZ 3.375GM/NS50ML 3.375 GM/50 ML BAG IVPB (19:01)
[2022-10-12 19:13] LABS: Cannabinoid Screen Urine Negative (Negative)
[2022-10-12] MEDS: SODIUM CHLORIDE 0.9% IV 1,000 ML 125 ML IV CONT (19:42)
[2022-10-12] MEDS: racEPINEPHrine 2.25% NEBU SOLN 0.5 ML VIAL.NEB INHALATION (20:35)
--- NOTE | 2022-10-12 20:38 | ECG_ITS ---
Measurements Intervals [place] Rate: 163 P: [place]: 0 QRS: 50 QRSD: 86 T: 31 QT: 281 QTc: 463 Interpretive Statements ATRIAL FLUTTER/TACHYCARDIA WITH RAPID VENTRICULAR RESPONSE BASELINE ARTIFACT- I, II, III ABNORMAL ECG COMPARED TO ECG 10/12/2022 16:11:23 ATRIAL FLUTTER NOW PRESENT Electronically Signed On 10-13-2022 7:49:30 CDT by Mark Ordaz D.O.
[2022-10-12] MEDS: ETOMIDATE 20 MG/10 ML AMPUL 15 MG IV PUSH (20:40)
[2022-10-12] MEDS: RAPID SEQUENCE INTUBATION KIT 1 EACH (20:42)
[2022-10-12] MEDS: MIDAZOLAM HCL (*CRX) 2 MG/2 ML VIAL IV PUSH (20:46)
[2022-10-12] MEDS: PROPOFOL IV EMULSION 100 ML 1.81 MG IV CONT (20:50)
--- NOTE | 2022-10-12 20:55 | PM.IMHP ---
H&P: HPI History of Present Illness Date/Time: 10/12/22 18:30 Chief Complaint: Altered mental status. Narrative: This is a 62-year-old female presented to the emergency department via EMS from home for evaluation of altered mental status. She is not able to provide an accurate history and most of the following is obtained via a review of her electronic medical records. Her provides some additional information however he has a history of traumatic brain injury (she is his primary eligibility analyst) and he is not a very good historian either. She was seen at [facility] on 10/08/2022 with complaints of left groin and hip pain for 4 days. She assume that she injured the area while lifting her 's wheelchair and she reportedly complained of pain with weight-bearing, sitting, and lifting the leg. She was diagnosed with a groin strain and she was prescribed a Medrol Dosepak and cyclobenzaprine, 10 mg p.o. b.i.d. p.r.n., quantity 20 pills. It is my understanding that she had not been to work since that time and EMS was sent to do a welfare check today. She was found on the ground, unresponsive, and with mottled skin. Apparently she was responsive yesterday but was altered however there are no further details with regards to that. She was afebrile on arrival with stable blood pressures. She has been tachycardic and tachypneic since arrival. Labs were significant for a WBC count of 15.6, hemoglobin 11.5, platelets 308, sodium 141, potassium 3.4, chloride 104, carbon dioxide 21, BUN 31, creatinine 1.50, glucose 152, lactic acid 1.8, AST 150, ALT 57, troponin 9.650. Urine showed 3+ protein and 3+ blood. Urine drug screen was negative. CT of the head and cervical spine showed no acute findings. CTA of the chest, abdomen, and pelvis showed no evidence of PE, questionable pyelonephritis versus motion artifact, and mild dependent atelectatic changes. She was given a dose of Zosyn and vancomycin for possible sepsis and she was admitted to the ICU in this setting. At the time my evaluation the patient is alert and will squeeze my hands and push my from hands with her feet and both sides seemed equal. She does not follow any other commands and she does not answer questions. Approximately 2 hours after my initial evaluation of the patient, I received a phone call from the ICU nurse with concerns of respiratory distress. I came to bedside and the patient was increasingly tachypneic and tachycardic and she had audible stridor. Stat nebulizer treatment was ordered and that was discontinued early as she appeared to be increasingly distressed and was now mottled from the chest down. She was intubated and sedated; the vocal cords were unremarkable and there was no sign of inflammation. Review of Systems Review of Systems: Unable to be obtained given clinical condition as above. [facility] Past Medical History Medical History Anxiety Arthritis Depression Essential (primary) hypertension Fracture of distal fibula (06/27/19) High cholesterol Hyperlipidemia Hypertension Impetigo Seasonal allergies Surgical History Surgical History No history of previous surgery Family History Family History Father Family history of arthritis Other Hypertension Social History Social History (Updated 10/13/22 @ 23:06 by Lela Greer PA-C) Smoking packs per day: 0.15 Smoking cigarettes per day: 3.0 Smoking status: Former smoker Second hand tobacco smoke exposure: Yes Smoking end date: 03/22/09 Alcohol intake: unknown Substance use: unknown Occupation/Education: occupation Additional occupation/education comments: [employer] Spiritual care concerns: No Meds Home Medications and Allergies Home Medications Medication Instructions Recorded Confirmed
--- NOTE | 2022-10-12 21:02 | P.PCNBED_ITS ---
Procedures Intubation Intubation Date: 10/12/22 Intubation Time: 20:35 Consent: Procedure performed emergently. Patient unable to give consent due to altered mental status. A pre-procedural Time-Out was completed immediately before starting the procedure and confirmed: Patient Identification, Site, Procedure, Patient Position and the Availability of Requisite Equipment: Yes Sedative: etomidate Mg given: 20 Paralytic: succinylcholine Mg given: 100 Laryngoscope: fiber optic video scope Assist device used: fiber optic device ET tube size: 7.5 Tube secured depth (cm): 22 Tube secured location: lips Tube placement confirmation: visualized tube passing through cords, equal breath sounds bilaterally, no breath sounds over epigastrium and confirmation by capnometry Patient tolerated procedure: well Intubation complications: none Additional comments: Patient was preoxygenated on non-rebreather mask; ABG showed that she was adequately oxygenated. Etomidate followed by succinylcholine were given in rapid sequence. A 7.5 ET tube was inserted easily, atraumatically, and on 1st attempt using glide scope. Tube was visualized passing through the vocal cords. Misting was noted in the tube, lung sounds were auscultated bilaterally, and there was positive colorimetric change. She was tachycardic immediately following intubation in that did improve with the addition of sedation. SpO2 was stable in the upper 90s throughout. Post intubation chest x-ray showed that the ET tube was in a satisfactory position. Discussed with concrete hopper operator following procedure and he gave vent settings and sedation orders.
--- NOTE | 2022-10-12 21:07 | ADMGEN ---
This patient, Ghislaine Mcnamara, was admitted to Intensive Care Unit-8 on 10/12/22 at 2006. Patient/family oriented to hospital policies and general routines including ID bracelet, bed and alarms, visiting hours, pain management, procedures, bathroom and other care routines, personal items, smoking policy, room service/diet, and visiting hours. Information on how to activate the Rapid Response Team has been discussed. Patient/Family are encouraged to report perceived risks to care and to ask questions if they do not understand what they are told or what they should do.
--- NOTE | 2022-10-12 21:27 | PC.NURSE ---
Attempted to call spouse. RN got a recorded message stating the number was not in service.
[2022-10-12 22:00] LABS: Alveolar/Arterial O2 Gradient 303.4 mmHg; Base Excess ABG -6.5 mEq/l (+/-2.0); Carboxyhemoglobin 0.2 % THb (0-2.0); Fractional Inspired Oxygen 60 %; HCO3 ABG 16.9 mEq/l (22.0-26.0); Methemoglobin ABG 0.3 %THb (0-1.5); Oxygen Content ABG 14.9 %vol (16.0-22.0); Oxygen Saturation ABG 97.4 % (95.0-100.0); Oxyhemoglobin 95.6 % THb (90.0-100.0); PCO2 ABG 27.5 mmHg (35.0-45.0); PO2 ABG 94.2 mmHg (80.0-100.0); PO2 FiO2 Ratio Arterial Blood 1.57 %; Reduced Hemoglobin 3.9 %THb (0-5.0); pH ABG 7.407 (7.350-7.450)
[2022-10-12 22:03] LABS: Device VENTILATOR; Modified Allen's Test Pass; Site Drawn RIGHT RADIAL
[2022-10-12 22:04] LABS: Arterial Blood Gas PEEP 5 cmH2O; Arterial Blood Gas Tidal Volume 400 ml; Arterial Blood Gas Vent Mode CMV; Arterial Blood Gas Ventilator rate 18 /MIN
[2022-10-12] MEDS: MINERAL OIL/WHITE PETROLATUM OINTMENT 1 APPLIC EACH EYE (22:18)
[2022-10-12] MEDS: FENTANYL 2,500MCG/NS250ML(*CRX 2,500 MCG/250 ML BAG IV CONT (22:20)
[2022-10-12] MEDS: MIDAZOLAM 100MG/NS 100ML(*CRX) 100 MG/100 ML BAG IV CONT (22:20)
[2022-10-12] MEDS: HEPARIN SOD/D5W 100 UNITS/ML 25,000 UNITS/250 ML BAG 7 UNITS IV CONT (22:33)
[2022-10-12 22:38] LABS: Hematocrit 37.1 % (37.0-47.0); Hemoglobin 11.7 g/dL (12.0-15.0); Mean Corpuscular HGB Conc 31.5 g/dl (32-36); Mean Corpuscular Hemoglobin 30.7 pg (26-34); Mean Corpuscular Volume 97.4 fl (80-100); Mean Platelet Volume 10.4 fl (7.4-10.4); Platelet Count Result 276 k/mm3 (150-375); Red Blood Count 3.81 M/mm3 (4.2-5.4); Red Cell Distribution Width 16.5 % (11.5-14.5); White Blood Count 15.8 K/mm3 (4.5-10.0)
[2022-10-12 22:46] LABS: Lactic Acid Reflex 2.4 mmol/L (0.7-2.0)
[2022-10-12 22:57] LABS: INR 1.4; Partial Thromboplastin Time 33.6 SECONDS (22.3-36.8); Prothrombin Time 17.6 Seconds (11.1-14.7)
[2022-10-12 23:07] LABS: Alanine Aminotransferase 64 U/L (6-35); Albumin Level 3.2 g/dL (3.5-5.1); Alkaline Phosphatase 74 U/L (38-126); Anion Gap 16 mmol/L (8-16); Aspartate Amino Transferase 194 U/L (14-36); Bilirubin,Total 0.6 mg/dL (0.2-1.3); Blood Urea Nitrogen 27 mg/dL (7-17); Calcium 7.9 mg/dL (8.4-10.2); Carbon Dioxide 14 mmol/L (22-30); Chloride 111 mmol/L (98-107); Creatine Kinase 3032 U/L (30-135); Estimated CRCL calculation 33 ml/min; Estimated Glomerular Filt Rate 38; Glucose 141 mg/dL (65-110); Magnesium 2.3 mg/dL (1.6-2.3); Potassium 2.8 mmol/L (3.4-5.0); Sodium 141 mmol/L (137-145); Triglycerides 288 mg/dL (<150)
[2022-10-12 23:15] LABS: Band Neutrophils Percent 11 % (0-6); Lymphocytes Absolute Manual 2.52 K/mm3 (1.1-4.5); Neutrophils Absolute Manual 13.27 K/mm3 (1.7-7.2); Neutrophils Percent Manual 73 % (46-73); Platelet Estimate Adequate (Adequate); Total Cells Counted 100
[2022-10-12 23:16] LABS: Anisocytosis 1+ (NORMAL); Ovalocytes 1+ (NORMAL); Poikilocytosis 1+ (NORMAL)
[2022-10-12 23:17] LABS: Schistocytes None Seen (NORMAL)
[2022-10-12] MEDS: POTASSIUM CHLORIDE 20 MEQ PACKET (FOR LIQUID) 40 MEQ FEED TUBE (23:31)
[2022-10-13] VITALS (44 sets, daily range): BP systolic 59–139; BP diastolic 47–94; PULSE 92–142; RESP 18–28; TEMP 36.6–39.8; O2SAT 94–100; BMI 22.8
--- NOTE | 2022-10-13 | ECHO_ITS ---
Patient Info Name: Ghislaine Mcnamara Age: 62 years : 1960 Gender: Female Ht: 64 in Wt: 133 lbs BSA: 1.66 m2 HR: 118 bpm BP: 82 / 62 mmHg Heart Rhythm: Sinus Rhythm, Tachycardia Technical Quality: Good Exam Date: 10/13/2022 12:16 PM Exam Location: [facility] Card Pulmonary Patient Status: Inpatient Admit Date: 10/12/2022 Staff Ordering Physician: Roberto Vences MD Garden Tractor Mechanic: Milly Romero RDCS Attending Provider: Duc Umaña MD Referring Physician: Ru ESTES; Exam Type: CA echo doppler color flow Study Info Indications - shock, NSTEMI Complete two-dimensional, color flow and Doppler transthoracic echocardiogram is performed. Strain analysis performed. Summary 1. Complete two-dimensional, color flow and Doppler transthoracic echocardiogram is performed. 2. Left ventricular chamber dimension is normal. 3. Left ventricular systolic function is moderately reduced, estimated at 30-35%. 4. Right ventricular chamber dimension is normal. 5. Right ventricular systolic function is reduced. 6. There is mild to moderate mitral valve regurgitation. 7. There is mild tricuspid valve regurgitation. 8. There is trivial pericardial effusion. Left Ventricle Left ventricular chamber dimension is normal. Left ventricular systolic function is moderately reduced, estimated at 30-35%. There is mildly increased left ventricular wall thickness. Global longitudinal strain is abnormal at -11 %. Right Ventricle Right ventricular chamber dimension is normal. Right ventricular systolic function is reduced. Left Atria Left atrial chamber dimension is normal. Right Atria Right atrial chamber dimension is normal. Atrial Septum Intact interatrial septum visualized by color flow imaging. Aortic Valve The aortic valve is trileaflet. There is mild aortic valve sclerosis. There is no aortic valve stenosis. There is trace aortic valve regurgitation. Pulmonic Valve The pulmonic valve is not well visualized. There is trace pulmonic regurgitation. Mitral Valve There is mild to moderate mitral valve regurgitation. Tricuspid Valve There is mild tricuspid valve regurgitation. Pericardium/Pleural There is trivial pericardial effusion. Inferior Vena Cava Dilated inferior vena cava with no collapse upon inspiration consistent with elevated right atrial pressure, 15 mmHg. Aorta The aortic root size at the sinus of Valsalva is normal. Left Ventricular Outflow Tract Name Value Normal LVOT 2D LVOT Diameter 2.1 cm LVOT Doppler LVOT Peak Gradient 2 mmHg LVOT Mean Gradient 1 mmHg LVOT VTI 12 cm LVOT VTI/AV VTI Ratio 0.7 LVOT Stroke Volume 42 ml LVOT CO 4.3 l/min LVOT CI 2.6 l/min/m2 Pulmonic Valve Name Value Normal RVOT Doppler
[2022-10-13] MEDS: HEPARIN SODIUM 5,000 UNITS/ML VIAL 4000 UNITS IV PUSH (00:04)
[2022-10-13] MEDS: ROCURONIUM BROMIDE 50 MG/5 ML VIAL 60 MG IV PUSH (00:26)
[2022-10-13] MEDS: MIDAZOLAM HCL (*CRX) 2 MG/2 ML VIAL 4 MG IV PUSH (00:26)
[2022-10-13] MEDS: POTASSIUM CHLORIDE INJ 40 MEQ in SODIUM CHLORIDE 0.9% IV 500 ML 130 MEQ IVPB (01:00)
[2022-10-13] MEDS: PIPERACILLIN/TAZ 2.25G/NS 50ML 2.25 GM/50 ML BAG IVPB (01:00)
[2022-10-13 01:32] LABS: Reflex Lactic Acid Yes or No Add Lactic
[2022-10-13] MEDS: METOPROLOL TARTRATE INJ 5 MG/5 ML VIAL IV PUSH (01:36)
[2022-10-13] MEDS: AMPICILLIN 2 GM/NS 100 ML 2 GM/100 ML BAG IVPB ×4 (01:36→17:33)
--- NOTE | 2022-10-13 01:54 | PC.NURSE ---
Spoke with Dr. Eugene, give 1L NS bolus x1 now, if no response for bp, start Levophed.
--- NOTE | 2022-10-13 02:09 | WPDPROCEDUR ---
Procedures Central Line Placement Right IJ: Central Line Date: 10/13/22 Central Line Time: 12:30 Consent: I have discussed with the patient and/or surrogate, the non-emergent placement of a central venous catheter, including its clinical necessity/indication and associated potential risks and complications. The patient and/or surrogate understand(s) and acknowledge(s) the need to proceed with central venous catheter insertion as an important element of the patient's clinical management. Time Out Performed: Yes Patient Position: trendelenburg Patient placed on monitor/pulse ox: Yes Provider Prep: mask, sterile gown, sterile gloves, Max. sterile barrier precautions, cap and hand hygiene with conventional soap/water or alcohol based hand rub Central line prep: 2% Chlorhexidine scrub Sterile US Technique with sterile gel/sterile probe covers: Yes Central line lumen inserted: triple Azerbaijani: 16 Length (cm): 16 Depth of Insertion (cm): 15 Post Procedure: sutured in place, good blood return, all ports aspirated, flushed, capped, transparent dressing, hemostatic product and aseptic technique maintained throughout procedure Post procedure x-ray: tip of catheter in good position and no pneumothorax seen Patient tolerated procedure: well and no complications Complications: none
--- NOTE | 2022-10-13 02:16 | ECG_ITS ---
Measurements Intervals [place] Rate: 120 P: 41 KS: 139 QRS: 54 QRSD: 89 T: 58 QT: 325 QTc: 461 Interpretive Statements SINUS TACHYCARDIA ABNORMAL ECG COMPARED TO ECG 10/12/2022 16:11:23 SINUS TACHYCARDIA NOW PRESENT Electronically Signed On 10-13-2022 7:49:58 CDT by Mark Ordaz D.O.
[2022-10-13 02:31] LABS: CRP > 45.0 mg/dL (<1.0)
[2022-10-13] MEDS: cefTRIAXone 2 GM/NS 100 ML 2 GM/100 ML BAG IVPB ×2 (02:40→12:53)
[2022-10-13] MEDS: SODIUM CHLORIDE 0.9% IV 1,000 ML 999 ML IV CONT (02:41)
[2022-10-13 02:47] LABS: Procalcitonin 9.9 ng/mL
[2022-10-13 02:54] LABS: Iron 18 ug/dL (37-170)
[2022-10-13 02:57] LABS: Folic Acid > 20.0 ng/mL (2.76->20); Vitamin B12 > 1000.0 pg/mL (239-931)
[2022-10-13] MEDS: NOREPINEPHRINE 8 MG/D5W 250 ML 8 MG/250 ML BAG 9.38 MG IV CONT (03:00)
[2022-10-13 03:04] LABS: Percent Iron Saturation 8 % (20-50)
[2022-10-13 03:26] LABS: Thyroid Stimulating Hormone Reflex 0.162 uIU/mL (0.465-4.68)
[2022-10-13] MEDS: ACETAMINOPHEN 650 MG SUPPOSITORY RECTAL (04:05)
[2022-10-13 04:36] LABS: Hematocrit 29.6 % (37.0-47.0); Hemoglobin 9.1 g/dL (12.0-15.0); Mean Corpuscular HGB Conc 30.7 g/dl (32-36); Mean Corpuscular Hemoglobin 29.9 pg (26-34); Mean Corpuscular Volume 97.4 fl (80-100); Mean Platelet Volume 10.8 fl (7.4-10.4); Platelet Count Result 253 k/mm3 (150-375); Red Blood Count 3.04 M/mm3 (4.2-5.4); Red Cell Distribution Width 16.9 % (11.5-14.5); White Blood Count 16.2 K/mm3 (4.5-10.0)
[2022-10-13 04:44] LABS: Ammonia 22 umol/L (9-30)
[2022-10-13 04:45] LABS: Anion Gap 10 mmol/L (8-16); Blood Urea Nitrogen 24 mg/dL (7-17); Calcium 6.8 mg/dL (8.4-10.2); Carbon Dioxide 18 mmol/L (22-30); Chloride 113 mmol/L (98-107); Estimated CRCL calculation 36 ml/min; Estimated Glomerular Filt Rate 42; Glucose 210 mg/dL (65-110); Magnesium 2.1 mg/dL (1.6-2.3); Phosphorus 4.6 mg/dL (2.5-4.5); Potassium 3.9 mmol/L (3.4-5.0); Sodium 141 mmol/L (137-145)
[2022-10-13] MEDS: SODIUM CHLORIDE 0.9% IV 1,000 ML 125 ML IV CONT (04:48)
[2022-10-13] MEDS: ACYCLOVIR SODIUM IVPB 800 MG in DEXTROSE 5% IN WATER 250 ML 266 MG IVPB (05:01)
[2022-10-13 05:02] LABS: Band Neutrophils Percent 4 % (0-6); Lymphocytes Absolute Manual 1.29 K/mm3 (1.1-4.5); Monocytes Absolute Manual 0.48 K/mm3 (0.1-0.90); Monocytes Percent Manual 3 % (3-9); Neutrophils Absolute Manual 14.41 K/mm3 (1.7-7.2); Neutrophils Percent Manual 85 % (46-73); Platelet Estimate Adequate (Adequate); Schistocytes None Seen (NORMAL); Total Cells Counted 100
[2022-10-13] MEDS: CENTRAL LINE FLUSH 10 ML IV PUSH ×5 (05:04→21:11)
[2022-10-13 05:06] LABS: Partial Thromboplastin Time 96.2 SECONDS (22.3-36.8)
[2022-10-13 05:15] LABS: Lactic Acid 1.1 mmol/L (0.7-2.0)
[2022-10-13 05:23] LABS: Creatine Kinase 2305 U/L (30-135)
[2022-10-13 05:30] LABS: Alveolar/Arterial O2 Gradient 295.3 mmHg; Carboxyhemoglobin 0.2 % THb (0-2.0); Fractional Inspired Oxygen 60 %; HCO3 ABG 16.4 mEq/l (22.0-26.0); Methemoglobin ABG 0.2 %THb (0-1.5); Oxygen Content ABG 13.4 %vol (16.0-22.0); Oxygen Saturation ABG 95.8 % (95.0-100.0); Oxyhemoglobin 94.5 % THb (90.0-100.0); PCO2 ABG 37.8 mmHg (35.0-45.0); PO2 ABG 90.9 mmHg (80.0-100.0); PO2 FiO2 Ratio Arterial Blood 1.51 %; Reduced Hemoglobin 5.1 %THb (0-5.0)
[2022-10-13 05:32] LABS: Device VENTILATOR; Modified Allen's Test Pass; Site Drawn RIGHT RADIAL; pH ABG 7.255 (7.350-7.450)
[2022-10-13 05:33] LABS: Arterial Blood Gas PEEP 5 cmH2O; Arterial Blood Gas Tidal Volume 400 ml; Arterial Blood Gas Vent Mode CMV; Arterial Blood Gas Ventilator rate 18 /MIN
[2022-10-13 05:40] LABS: Estimated CRCL calculation 36 ml/min; Estimated Glomerular Filt Rate 42
[2022-10-13 06:16] LABS: Free T4 Free Thyroxine Reflex 0.65 ng/dL (0.78-2.19)
[2022-10-13] MEDS: SODIUM BICARBONATE 8.4% 50 MEQ/50 ML SYRINGE IV PUSH (06:28)
--- NOTE | 2022-10-13 08:19 | WPDCNINT ---
Assessment and Plan Assessment and plan (1) Acute respiratory failure: Code(s): J96.00 - Acute respiratory failure, unspecified whether with hypoxia or hypercapnia Status: Acute Assessment and Plan: 10/12: Patient admitted with encephalopathy, was protecting airways, received 4 L of IV fluid bolus, once in the ICU she developed respiratory distress was intubated. She was also given racemic epinephrine for some questionable stridor -currently on CMV mode of ventilation, peep of 5 and 60% FiO2, wean FiO2 to maintain O2 sats greater than 92% -chest x-ray this morning: Shows possible mild ground-glass pulmonary disease, correlate for pulmonary edema infection -Add bronchodilators -ABGs reviewed, ventilator adjusted -sedated with fentanyl and Versed infusion, maintain RASS of 0 to-1 -daily sedation vacation 10/12: CTA chest abdomen pelvis Questionable pyelonephritis versus motion artifact resulting in heterogeneous appearance of the kidneys. Correlate clinically and with urinalysis. Mild dependent atelectatic change, otherwise no significant abnormality seen in the lungs. No pulmonary embolus identified. (2) Septic shock: Code(s): A41.9 - Sepsis, unspecified organism; R65.21 - Severe sepsis with septic shock Status: Acute Assessment and Plan: Patient presented with encephalopathy, acute kidney injury, fevers of 104.0? F, elevated white blood cell, elevated procalcitonin and CRP -received 4 L of IV fluid bolus despite which her blood pressures were low -patient was started on Levophed, will maintain systolic blood pressures greater than 100 mmHg -10/12: Blood cultures growing Gram-positive cocci in clusters 2/2 bottles -10/12: Urine culture been obtained and pending -10/13: Sputum cultures have been obtained and pending -continue ampicillin, ceftriaxone vancomycin and acyclovir -will add stress dose steroids (3) Acute kidney injury: Code(s): N17.9 - Acute kidney failure, unspecified Status: Acute Assessment and Plan: Patient presented with acute kidney injury likely related to hypovolemia, rhabdomyolysis, bacteremia, sepsis/septic shock -adequately fluid-resuscitated -urine output has been adequate -creatinine trending down -continue to monitor renal function, electrolytes and urine output -10/13: Renal ultrasound no hydronephrosis, minimal right perinephric fluid -urine lytes have been ordered along with urine eosinophils (4) Rhabdomyolysis: Code(s): M62.82 - Rhabdomyolysis Status: Acute Assessment and Plan: Patient was found on the ground, unknown amount of down time as the has been conflicting information -CK levels were elevated, patient was adequately fluid-resuscitated -continue maintenance IV fluids -CK treat levels trending down will continue to monitor (5) Non-ST elevation myocardial infarction (NSTEMI): Code(s): I21.4 - Non-ST elevation (NSTEMI) myocardial infarction Status: Acute Assessment and Plan: Troponins on admission were 9.650->10.700-->10.700->11.000 -patient diagnosed with NSTEMI, statin heparin infusion and aspirin -she was initially started on metoprolol when her blood pressures were stable, currently hypotensive due to probably septic shock, positive-pressure ventilation, sedation. Will hold beta-blockers for now -initial EKG in the ER showed sinus tachycardia repeat EKG with questionable atrial flutter and converted back into sinus tachycardia. -this morning she is in since the continue rates in the 110s to 120s -cardiology has been consulted (6) Encephalopathy: Code(s): G93.40 - Encephalopathy, unspecified Status: Acute Assessment and Plan: Encephalopathy could be multifactorial -medication, which she heads some blue discoloration of her tongue and his cyclobenzaprine was in that color, NSTEMI, acute kidney injury, bacteremia, sepsis -continue treat the underlying cause -will give sedation vacation and
--- NOTE | 2022-10-13 08:23 | PM.IMPN ---
Progress Note: A&P Assessment and Plan (1) Septic shock: Code(s): A41.9 - Sepsis, unspecified organism; R65.21 - Severe sepsis with septic shock Status: Acute Assessment and Plan: Patient met sepsis criteria on admission with tachycardia, tachypnea, leukocytosis, elevated PCT and elevated lactic acid level. She was recently in [facility] for [place] groin pain and placed on steroids. Also with HoTN requiring Levophed. BCx 10/12: positive for GPC in clusters in aerobic bottles (2of2) UCx 10/12: pending Sputum Cx 10/12: pending CT Ch/A/P 10/12: Dependent atelectasis, no PE, bilateral mild perinephric fluid possible pyelonephritis Source of bacteremia unclear. Her urinalysis however is not consistent with UTI. No evidence of pneumonia on imaging. WBC about the same. PCT 10. CRP >45. Lactic 1.1 now. Fevers to 103.6 Could be skin source. Doubt meningitis. Doubt septic arthritis. Wean Levophed as tolerated. Followup on BCx results. Repeat BCx in 1-2 days. Check Echo. Continue Rocephin, Vancomycin and Ampicillin (10/12) for now. Solu-Cortef started. Hetastarch x 1. ABG noted with metabolic acidosis (and possibly resp component) so bicarb added. AG 10. (2) Acute respiratory failure: Code(s): J96.00 - Acute respiratory failure, unspecified whether with hypoxia or hypercapnia Status: Acute Assessment and Plan: Patient with tachypnea on admission and placed on NRB mask in ED. No PE or PNA by imaging. After admission, she developed stridor and racemic epi. She developed resp failure requiring intubation. She is currently on PEEP 5, 50% FiO2. Vent management per medication tech. (3) Non-ST elevation myocardial infarction (NSTEMI): Code(s): I21.4 - Non-ST elevation (NSTEMI) myocardial infarction Status: Acute Assessment and Plan: Troponin was elevated on admission to 11. Some of this rise in the Trop could be related to rhabdomyolysis but feel she also has NSTEMI. EKG showing sinus tachycardia but o/w normal. CXR clear and no PE by CTA. Repeat EKG showing AFlutter. She received one dose of IV metoprolol overnight (before being on levophed) and she converted to NSR. EKG this morning showing sinus tachycardia but o/w normal. She has been started on heparin. Echocardiogram ordered. Cardiology consulted. Add ASA (4) Encephalopathy: Code(s): G93.40 - Encephalopathy, unspecified Status: Acute Assessment and Plan: Not able to contact patient so EMS called to do well check and found her on the ground unresponsive and mottled. She was last seen [address] brain 10/12 showing no acute findings but does show mild scattered white matter disease. Cervical spine CT 10/12 showing moderate to severe cervical and upper thoracic spondylosis. UDS negative. Ammonia 22. B12/Folate normal. TSH slightly low at 0.16 Etiology appears to infectious. Continue IV antibiotics. Monitor mental status by holding sedation intermittently. (5) Acute kidney injury: Code(s): N17.9 - Acute kidney failure, unspecified Status: Acute Assessment and Plan: Patient with presumed normal baseline renal function (Cr 0.97 in Jan 2021). Cr 1.5 on admisison likely related to above. Probably related to ATN, dehydration, rhabdo, ACEI. Started on IV fluids. Renal US showing no acute findings. Cr has improved. Monitor closely since she has received contrast yesterday. Pizano in place for strict I/O. Continue IV fluids. (6) Rhabdomyolysis: Code(s): M62.82 - Rhabdomyolysis Status: Acute Assessment and Plan: TCK elevated on admission and peaked at 3032. UA had 3+ blood but no RBC. CK is trending down now. Continue IV fluid rehydration and close monitoring of CK. Bicarb added (7) Atrial flutter: Code(s): I48.92 - Unspecified atrial flutter Status: Acute Assessment and Plan: As above. Monitor closely on telemetry. Start metoprolol when able (8) Electrolyte abnormality:
[2022-10-13] MEDS: hetaSTARCH 6%/NACL 500 ML 250 ML IV CONT (08:24)
[2022-10-13] MEDS: HYDROCORTISONE SODIUM SUCCINATE 100 MG/2 ML VIAL IV PUSH ×3 (08:24→21:10)
[2022-10-13] MEDS: SODIUM BICARBONATE 8.4% 150 MEQ in WATER, STERILE FOR INJECTION 950 ML 100 MEQ IV CONT ×2 (08:25→18:17)
[2022-10-13] MEDS: CALCIUM GLUC 2,000 MG/NS 100ML 2,000 MG/100 ML BAG 100 MG IVPB (08:25)
[2022-10-13] MEDS: MINERAL OIL/WHITE PETROLATUM OINTMENT 1 APPLIC EACH EYE ×2 (08:45→21:10)
[2022-10-13 08:49] LABS: Eosinophil Urine None Seen % (None Seen); Urine Eos QC 2nd Tech Confirmed
[2022-10-13 09:06] LABS: SARS-CoV-2 RNA PCR Negative (Negative)
[2022-10-13 09:14] LABS: Creatinine Urine 77.5 mg/dL
[2022-10-13 09:23] LABS: Potassium Urine Random 47.1 meq/L; Sodium Urine Random 6 meq/L
--- NOTE | 2022-10-13 10:11 | PM.CNCAR ---
Assessment and Plan Assessment and plan (1) Non-ST elevation myocardial infarction (NSTEMI): Code(s): I21.4 - Non-ST elevation (NSTEMI) myocardial infarction Status: Acute Assessment and Plan: Initial troponin of 9.650 with troponin at 11 (has not peaked yet). Initial EKG showing sinus tachycardia without any ischemic changes. Repeat EKG read as possible atrial flutter / atrial tachycardia, but I think it's more sinus tachycardia (no evidence of flutter waves on tele when her heart rate slows down). The third EKG clearly shows sinus tachycardia. Elevated troponins in the setting of septic shock, bacteremia, acute respiratory failure requiring mechanical ventilation, TIKA, rhabdo. The elevated troponins could be from demand ischemia due to the above, however, given the degree of troponin elevation, I cannot rule out an acute coronary syndrome. Recommendations: -Continue to trend troponins until peak. -ASA 81mg once daily if no contraindications. -Initiate high-intensity statin if no contraindication. -Continue Heparin drip per ACS protocol for 48 hours. -Echocardiogram. (2) Septic shock: Code(s): A41.9 - Sepsis, unspecified organism; R65.21 - Severe sepsis with septic shock Status: Acute Assessment and Plan: On pressors. Management as per ICU team. (3) Acute respiratory failure: Code(s): J96.00 - Acute respiratory failure, unspecified whether with hypoxia or hypercapnia Status: Acute Assessment and Plan: Intubated and on mechanical ventilation. Management as per ICU team. (4) Rhabdomyolysis: Code(s): M62.82 - Rhabdomyolysis Status: Acute Assessment and Plan: Peak CK level of 3032, now downtrending. (5) Bacteremia: Code(s): R78.81 - Bacteremia Status: Acute Assessment and Plan: Blood cultures growing Gram positive cocci in clusters. Management as per ICU team. Plan Recommendations/plan discussed with Bathhouse Attendant. History of Present Illness History of Present Illness Consult date/time: 10/13/22 10:11 Requesting physician: Roberto Vences MD Consult reason: Other (Elevated troponins ) Reason For Visit: Altered LOC Narrative: We are consulted for elevated troponins. Patient is currently intubated, therefore, unable to obtain any history from the patient. No family at bedside. Therefore, all history obtained from the chart and the medical team. This is a 62-year-old female who is admitted with septic shock, acute respiratory failure requiring intubation and mechanical ventilation, bacteremia, rhabdomyolysis, acute kidney injury. She has a history of anxiety, arthritis, depression, hypertension, hyperlipidemia who presented to [place] [facility] 10/12/2022 with altered mental status. EMS was sent to do a wellness check on the patient as she had not gone to work. Patient found on the ground unresponsive and mottled. Initial labs notable for Cr 1.5, elevated AST/ALT, elevated CK, initial troponin of 9.650. UDS negative. CTA C/A/P with questionable pyelonephritis. Patient intubated in the ICU for respiratory distress. Review of Systems Review of Systems: ROS unobtainable: Yes unobtainable due to endotracheal tube, unobtainable due to medical condition and unobtainable due to mental status PMFSH Past Medical History Medical History (Updated 10/13/22 @ 10:24 by Adan Bell MD) Anxiety Arthritis Depression Essential (primary) hypertension Fracture of distal fibula (06/27/19) High cholesterol Hyperlipidemia Hypertension Impetigo Seasonal allergies Surgical History Surgical History No history of previous surgery Family History Family History Father Family history of arthritis Other Hypertension Social History Social History Smoking packs per day: 0.15 Smoking cigar
[2022-10-13] MEDS: ASPIRIN 325 MG TABLET FEED TUBE (10:45)
[2022-10-13] MEDS: PANTOPRAZOLE SODIUM IV 40 MG VIAL IV PUSH (10:45)
[2022-10-13 12:24] LABS: Partial Thromboplastin Time 179.8 SECONDS (22.3-36.8)
[2022-10-13 12:29] LABS: Glucose Point of Care 166 mg/dl (65-105)
[2022-10-13] MEDS: IPRATROPIUM BR 0.02% INH SOLN 0.5 MG/2.5 ML VIAL INHALATION ×2 (13:34→19:43)
[2022-10-13] MEDS: LEVALBUTEROL NEB 1.25 MG/3 ML 0.63 MG INHALATION ×2 (13:34→19:43)
--- NOTE | 2022-10-13 15:09 | PC.NURSE ---
1445: received a phone call from Makayla and got an updated number [phone] 1457: received phone call from Daycora Sears, [id number] to patient, stating she got a phone call from son Makayla who has a TBI and said Ghislaine was in [facility] but did not understand anything. I explained a wellness check was issued due to Ghislaine not showing up for work and EMS found her unresponsive. Ghislaine is now on ventilator and has a blood stream infection and will unfortunately be in the hospital for awhile. Day stated Makayla has a TBI and cannot make decisions nor take care of himself. Day lives in the [facility] and Ghislaine and Makayla have no children. Day's phone number is [phone] and stated we could call if needed
[2022-10-13] MEDS: WATER IVPB (17:34)
[2022-10-13] MEDS: DEXTROSE 5% IVPB (17:34)
[2022-10-13] MEDS: ACYCLOVIR SODIUM IVPB (17:34)
[2022-10-13 17:50] LABS: Glucose Point of Care 181 mg/dl (65-105)
[2022-10-13] MEDS: NOREPINEPHRINE 8 MG/D5W 250 ML 8 MG/250 ML BAG 11.25 MG IV CONT (18:14)
[2022-10-14] VITALS (39 sets, daily range): BP systolic 89–131; BP diastolic 62–92; PULSE 91–114; RESP 13–24; TEMP 36.1–37.3; O2SAT 94–98
[2022-10-14] MEDS: AMPICILLIN 2 GM/NS 100 ML 2 GM/100 ML BAG IVPB ×4 (00:26→17:40)
[2022-10-14 00:33] LABS: Glucose Point of Care 210 mg/dl (65-105)
[2022-10-14] MEDS: INSULIN ASPART (*BKC) 100 UNITS/ML SUB-Q ×4 (00:33→17:36)
[2022-10-14] MEDS: cefTRIAXone 2 GM/NS 100 ML 2 GM/100 ML BAG IVPB ×2 (01:07→12:16)
[2022-10-14] MEDS: IPRATROPIUM BR 0.02% INH SOLN 0.5 MG/2.5 ML VIAL INHALATION ×4 (01:46→20:09)
[2022-10-14] MEDS: LEVALBUTEROL NEB 1.25 MG/3 ML 0.63 MG INHALATION ×4 (01:47→20:08)
[2022-10-14 03:18] LABS: Hematocrit 28.2 % (37.0-47.0); Mean Corpuscular HGB Conc 31.9 g/dl (32-36); Mean Corpuscular Hemoglobin 30.1 pg (26-34); Mean Corpuscular Volume 94.3 fl (80-100); Mean Platelet Volume 10.6 fl (7.4-10.4); Platelet Count Result 214 k/mm3 (150-375); Red Blood Count 2.99 M/mm3 (4.2-5.4); Red Cell Distribution Width 17.1 % (11.5-14.5); White Blood Count 16.8 K/mm3 (4.5-10.0)
[2022-10-14 03:28] LABS: Lactic Acid Reflex 1.8 mmol/L (0.7-2.0)
[2022-10-14 03:29] LABS: Partial Thromboplastin Time 69.7 SECONDS (22.3-36.8)
[2022-10-14 03:36] LABS: Alanine Aminotransferase 84 U/L (6-35); Albumin Level 2.6 g/dL (3.5-5.1); Alkaline Phosphatase 102 U/L (38-126); Anion Gap 7 mmol/L (8-16); Aspartate Amino Transferase 156 U/L (14-36); Bilirubin,Total 0.4 mg/dL (0.2-1.3); Blood Urea Nitrogen 25 mg/dL (7-17); Calcium 7.1 mg/dL (8.4-10.2); Carbon Dioxide 28 mmol/L (22-30); Chloride 105 mmol/L (98-107); Creatine Kinase 653 U/L (30-135); Estimated CRCL calculation 38 ml/min; Estimated Glomerular Filt Rate 46; Glucose 217 mg/dL (65-110); Lipase 62 U/L (23-300); Magnesium 2.2 mg/dL (1.6-2.3); Phosphorus 3.9 mg/dL (2.5-4.5); Potassium 2.8 mmol/L (3.4-5.0); Sodium 140 mmol/L (137-145)
[2022-10-14 03:43] LABS: Band Neutrophils Percent 19 % (0-6); Lymphocytes Absolute Manual 1.34 K/mm3 (1.1-4.5); Lymphocytes Percent Manual 8 % (18-44); Monocytes Absolute Manual 0.84 K/mm3 (0.1-0.90); Monocytes Percent Manual 5 % (3-9); Neutrophils Absolute Manual 14.61 K/mm3 (1.7-7.2); Neutrophils Percent Manual 68 % (46-73); Total Cells Counted 100
[2022-10-14 03:44] LABS: Anisocytosis 1+ (NORMAL); Nucleated Red Blood Cells 1 %; Platelet Estimate Adequate (Adequate); Poikilocytosis 1+ (NORMAL); Schistocytes None Seen (NORMAL)
[2022-10-14] MEDS: CENTRAL LINE FLUSH 10 ML IV PUSH ×4 (04:18→22:52)
[2022-10-14] MEDS: SODIUM BICARBONATE 8.4% 150 MEQ in WATER, STERILE FOR INJECTION 950 ML 100 MEQ IV CONT (04:18)
[2022-10-14] MEDS: HEPARIN SODIUM 5,000 UNITS/ML VIAL 2500 UNITS IV PUSH ×2 (04:18→12:17)
[2022-10-14] MEDS: HYDROCORTISONE SODIUM SUCCINATE 100 MG/2 ML VIAL IV PUSH (04:48)
[2022-10-14] MEDS: POTASSIUM CHLORIDE INJ 40 MEQ in SODIUM CHLORIDE 0.9% IV 500 ML 130 MEQ IVPB (05:15)
[2022-10-14 05:17] LABS: CRP > 45.0 mg/dL (<1.0)
[2022-10-14 05:19] LABS: Alveolar/Arterial O2 Gradient 75.9 mmHg; Fractional Inspired Oxygen 30 %; HCO3 ABG 25.5 mEq/l (22.0-26.0); Oxygen Content ABG 13.8 %vol (16.0-22.0); Oxygen Saturation ABG 97.1 % (95.0-100.0); Oxyhemoglobin 95.4 % THb (90.0-100.0); PO2 FiO2 Ratio Arterial Blood 3.03 %; Total Hemoglobin 10.2 g/dL (12.0-18.0); pH ABG 7.422 (7.350-7.450)
[2022-10-14 05:21] LABS: Arterial Blood Gas PEEP 5 cmH2O; Arterial Blood Gas Tidal Volume 400 ml; Arterial Blood Gas Vent Mode CMV; Arterial Blood Gas Ventilator rate 22 /MIN; Device VENTILATOR; Modified Allen's Test Pass; Site Drawn RIGHT RADIAL
[2022-10-14] MEDS: WATER IVPB (06:03)
[2022-10-14] MEDS: DEXTROSE 5% IVPB (06:03)
[2022-10-14] MEDS: ACYCLOVIR SODIUM IVPB (06:03)
[2022-10-14] MEDS: CALCIUM GLUC 2,000 MG/NS 100ML 2,000 MG/100 ML BAG 100 MG IVPB (08:25)
[2022-10-14] MEDS: VANCOMYCIN 1,250 MG/NS 250 ML 1,250 MG/250 ML BAG 166.67 MG IVPB (08:25)
[2022-10-14] MEDS: POTASSIUM CHLORIDE 20 MEQ PACKET (FOR LIQUID) 40 MEQ FEED TUBE (08:27)
[2022-10-14] MEDS: MINERAL OIL/WHITE PETROLATUM OINTMENT 1 APPLIC EACH EYE ×2 (08:28→20:39)
[2022-10-14] MEDS: ASPIRIN 81 MG CHEWABLE TABLET FEED TUBE (08:28)
--- NOTE | 2022-10-14 09:02 | WPDINTPN ---
Progress Note: A&P Assessment and Plan (1) Acute respiratory failure: Code(s): J96.00 - Acute respiratory failure, unspecified whether with hypoxia or hypercapnia Status: Acute Assessment and Plan: 10/12: Patient admitted with encephalopathy, was protecting airways, received 4 L of IV fluid bolus, once in the ICU she developed respiratory distress was intubated. She was also given racemic epinephrine for some questionable stridor -currently on CMV mode of ventilation, peep of 5 and 30% FiO2, wean FiO2 to maintain O2 sats greater than 92% -chest x-ray this morning: Endotracheal tube, NG tube, and right IJ line are in satisfactory positions. Probable minimal left pleural effusion and left basilar atelectatic change. Right lung clear.? Cardiomediastinal silhouette is stable. Bones and soft tissues are unremarkable. -continue bronchodilators -ABGs reviewed -sedated with fentanyl and Versed infusion, maintain RASS of 0 to-1 -daily sedation vacation 10/12: CTA chest abdomen pelvis Questionable pyelonephritis versus motion artifact resulting in heterogeneous appearance of the kidneys. Correlate clinically and with urinalysis. Mild dependent atelectatic change, otherwise no significant abnormality seen in the lungs. No pulmonary embolus identified. (2) Septic shock: Code(s): A41.9 - Sepsis, unspecified organism; R65.21 - Severe sepsis with septic shock Status: Acute Assessment and Plan: Patient presented with encephalopathy, acute kidney injury, fevers of 104.0? F, elevated white blood cell, elevated procalcitonin and CRP -received adequate IV fluids in the ER and ICU on admission -weaning Levophed, will maintain systolic blood pressures greater than 100 mmHg -10/12: Blood cultures growing Gram-positive cocci in clusters 2/2 bottles -10/12: Urine culture been obtained and pending -10/13: Sputum cultures have been obtained and pending -continue ampicillin, ceftriaxone vancomycin and acyclovir -will wean stress dose steroids (3) Acute kidney injury: Code(s): N17.9 - Acute kidney failure, unspecified Status: Acute Assessment and Plan: Patient presented with acute kidney injury likely related to hypovolemia, rhabdomyolysis, bacteremia, sepsis/septic shock -adequately fluid-resuscitated -urine output has been adequate -creatinine trending down -continue to monitor renal function, electrolytes and urine output -10/13: Renal ultrasound no hydronephrosis, minimal right perinephric fluid -urine lytes show prerenal picture, patient has been adequately fluid-resuscitated, -urine eosinophils are negative (4) Rhabdomyolysis: Code(s): M62.82 - Rhabdomyolysis Status: Acute Assessment and Plan: Patient was found on the ground, unknown amount of down time as the has been conflicting information -CK levels were elevated, patient was adequately fluid-resuscitated -CK treat levels trending down well -discontinue bicarb infusion (5) Non-ST elevation myocardial infarction (NSTEMI): Code(s): I21.4 - Non-ST elevation (NSTEMI) myocardial infarction Status: Acute Assessment and Plan: Troponins on admission were 9.650->10.700-->10.700->11.000-->5.460 -patient diagnosed with NSTEMI, statin heparin infusion and aspirin -she was initially started on metoprolol when her blood pressures were stable, currently hypotensive due to probably septic shock, positive-pressure ventilation, sedation. Will hold beta-blockers for now -initial EKG in the ER showed sinus tachycardia repeat EKG with questionable atrial flutter and converted back into sinus tachycardia. -this morning she is in since the continue rates in the 110s to 120s -appreciate cardiology evaluation and recommendation -patient continues to be on heparin infusion aspirin -troponins trending down (6) Encephalopathy: Code(s): G93.40 - Encephalopathy, unspecified Status: Acute Assessment and Plan: Encep
[2022-10-14] MEDS: HEPARIN SOD/D5W 100 UNITS/ML 25,000 UNITS/250 ML BAG 7 UNITS IV CONT (09:17)
[2022-10-14] MEDS: PANTOPRAZOLE SODIUM IV 40 MG VIAL IV PUSH (10:55)
--- NOTE | 2022-10-14 11:25 | PC.NURSE ---
Spoke with mother in law Day, who reports it is ok to discuss medical updates and pt status with coworkers Kendy and Cleo.
--- NOTE | 2022-10-14 11:36 | PCFNICU ---
ICU Rounding Note: Pt current nutrition is Vital AF 1.2 at 60 ml/hr. Last recorded weight is 71.9 kg. Bowel Motility:No BM reported. Labs Reviewed:Glu 217, GFR 46, K 2.8,Cr 1.2,BUN 25, Hct 28.2,Hgb 9.0 Meds Noted:Rocephin, Heparin, Protonix, Vacomycin, Fentanyl, Levophed Skin:WNL Additional Notes: Patient remains on mechanical vent and tube feedings of Vital AF 1.2 at 60 ml//hr, goal rate at 65 ml/hr. Flush 30 ml q 4 hours. Discussions in rounds for possible sedation vacation and extubated soon. Agree with diet orders. Following daily in ICU rounds. Will monitor weight, labs, tube feeding tolerance, skin every Wednesday and Wednesday.
[2022-10-14 11:37] LABS: Partial Thromboplastin Time 60.4 SECONDS (22.3-36.8)
--- NOTE | 2022-10-14 11:50 | PM.PNCARD ---
Progress Note: A&P Assessment and Plan (1) Non-ST elevation myocardial infarction (NSTEMI): Code(s): I21.4 - Non-ST elevation (NSTEMI) myocardial infarction Status: Acute Assessment and Plan: Initial troponin of 9.650 with peak troponin at 11. Initial EKG showing sinus tachycardia without any ischemic changes. Repeat EKG read as possible atrial flutter / atrial tachycardia, but I think it's more sinus tachycardia (no evidence of flutter waves on tele when her heart rate slows down). The third EKG clearly shows sinus tachycardia. Elevated troponins in the setting of septic shock, bacteremia, acute respiratory failure requiring mechanical ventilation, TIKA, rhabdo. The elevated troponins could be from demand ischemia due to the above, however, given the degree of troponin elevation, I cannot rule out an acute coronary syndrome. Recommendations: -ASA 81mg once daily if no contraindications. -Initiate high-intensity statin if no contraindication. -Continue Heparin drip per ACS protocol for 48 hours. -Echocardiogram 10/13 showing LVEF 30-35%, mild-moderate MR. Will eventually need some sort of ischemic evaluation depending on her clinical course / recovery from her acute issues. (2) Cardiomyopathy: Code(s): I42.9 - Cardiomyopathy, unspecified Status: Acute Assessment and Plan: Echocardiogram 10/13 showing LVEF 30-35%, mild-moderate MR. New diagnosis of reduced LVEF. In the setting of septic shock, bacteremia, acute respiratory failure requiring mechanical ventilation, TIKA, rhabdo. Will eventually need some sort of ischemic evaluation depending on her clinical course / recovery from her acute issues. Will need to get her started on GDMT when she recovers more and is no longer requiring pressors and when TIKA resolves. (3) Septic shock: Code(s): A41.9 - Sepsis, unspecified organism; R65.21 - Severe sepsis with septic shock Status: Acute Assessment and Plan: On pressors. Staph aureus bacteremia. Management as per ICU team. (4) Acute respiratory failure: Code(s): J96.00 - Acute respiratory failure, unspecified whether with hypoxia or hypercapnia Status: Acute Assessment and Plan: Intubated and on mechanical ventilation. Management as per ICU team. (5) Rhabdomyolysis: Code(s): M62.82 - Rhabdomyolysis Status: Acute Assessment and Plan: Peak CK level of 3032, now downtrending. (6) Bacteremia: Code(s): R78.81 - Bacteremia Status: Acute Assessment and Plan: Blood cultures growing Staph aureus. Management as per ICU team. Plan Recommendations/plan discussed with Insurance Special Agent, Dr. Vences. Subjective Date/time seen: 10/14/22 11:50 Interval history: Reason for visit: Elevated troponins, cardiomyopathy HPI: We are consulted for elevated troponins. Patient is currently intubated, therefore, unable to obtain any history from the patient. No family at bedside. Therefore, all history obtained from the chart and the medical team. This is a 62-year-old female who is admitted with septic shock, acute respiratory failure requiring intubation and mechanical ventilation, bacteremia, rhabdomyolysis, acute kidney injury. She has a history of anxiety, arthritis, depression, hypertension, hyperlipidemia who presented to [facility] 10/12/2022 with altered mental status. EMS was sent to do a wellness check on the patient as she had not gone to work. Patient found on the ground unresponsive and mottled. Initial labs notable for Cr 1.5, elevated AST/ALT, elevated CK, initial troponin of 9.650. UDS negative. CTA C/A/P with questionable pyelonephritis. Patient intubated in the ICU for respiratory distress.? Date of service 10/15: Remains intubated. Still on pressors. Tele stable. Review of Systems Review of Systems: ROS unobtainable: Yes unobtainable due to endotracheal tube and unobtainable due to medical condition Exam Const: General: no acute dist
--- NOTE | 2022-10-14 12:06 | WPDNEURCNPN ---
Consult date: 10/14/22 HPI: brought to the ER for the complaint of change in the mental status on October 12, 2022 reportedly she was found on the floor unresponsive and mottled patient did fall day before as well when she was seen in the [facility] or hip pain and was given the muscle relaxer, her home medications included lisinopril 20 mg daily, lovastatin 40 mg daily, and reportedly she is allergic to codeine in addition she has ongoing history of anxiety with depression, hypertension, hypercholesterolemia, on the hospital it has been documented that she was unable to give an accurate account patient carries the diagnosis of traumatic brain injury. At present she is in the intensive care for the acute respiratory failure, has been seen by the furniture removalist on ST elevated myocardial infarction and documented to have possible atrial flutter on EKG though still not clear though she does have intermittent sinus tachycardia, elevated troponin related to demand ischemia because of the multiple factors. [facility] Past Medical History Medical History (Updated 10/14/22 @ 11:52 by Adan Bell MD) Anxiety Arthritis Depression Essential (primary) hypertension Fracture of distal fibula (06/27/19) High cholesterol Hyperlipidemia Hypertension Impetigo Seasonal allergies Surgical History Surgical History No history of previous surgery Family History Family History Father Family history of arthritis Other Hypertension Social History Social History (Updated 10/13/22 @ 23:06 by Lela Greer PA-C) Smoking packs per day: 0.15 Smoking cigarettes per day: 3.0 Smoking status: Former smoker Second hand tobacco smoke exposure: Yes Smoking end date: 03/22/09 Alcohol intake: unknown Substance use: unknown Occupation/Education: occupation Additional occupation/education comments: [employer] Spiritual care concerns: No Meds Home Medications and Allergies Home Medications Medication Instructions Recorded Confirmed Type cyclobenzaprine 10 mg tablet 10 mg PO TID PRN muscle spasm #20 10/08/22 10/12/22 Rx tabs lisinopril 20 mg tablet 20 mg PO DAILY 10/08/22 10/12/22 History methylprednisolone 4 mg tablets in See Rx Instructions PO .COMPLEX 10/08/22 10/12/22 Rx a dose pack (Medrol (Sanya)) #21 ea simvastatin 40 mg tablet 40 mg PO DAILY 10/08/22 10/12/22 History Allergies Allergy/AdvReac Type Severity Reaction Status Date / Time codeine AdvReac Mild Vomiting Verified 10/13/22 07:43 Vital Signs Vital Signs - 24 hr 10/13/22 12:46 10/13/22 13:39 10/13/22 13:40 Temperature Pulse Rate 104 H 104 H 104 H Respiratory Rate 22 H Blood Pressure 112/80 Pulse Oximetry 98 Oxygen Delivery Mechanical Ventilation Fraction of Inspired Oxygen 40 10/13/22 13:44 10/13/22 14:00 10/13/22 14:00 Temperature 37.1 C Pulse Rate 104 H 103 H 103 H Respiratory Rate 22 H Blood Pressure 107/78 104/78 Pulse Oximetry 96 Oxygen Delivery Fraction of Inspired Oxygen 10/13/22 14:00 10/13/22 14:00 10/13/22 16:00 Temperature Pulse Rate 103 H 103 H 102 H Respiratory Rate 22 H 22 H Blood Pressure Pulse Oximetry Oxygen Delivery Fraction of Inspired Oxygen 10/13/22 16:00 10/13/22 16:00 10/13/22 16:00 Temperature 37.0 C Pulse Rate 102 H Respiratory Rate 22 H Blood Pressure 117/85 Pulse Oximetry 96 97 Oxygen Delivery Mechanical Ventilation Fraction of Inspired Oxygen 30 30 10/13/22 16:00 10/13/22 16:00 10/13/22 16:17 Temperature Pulse Rate 102 H 102 H 102 H Respiratory Rate 22 H 22 H Blood Pressure Pulse Oximetry 97 Oxygen Delivery Mechanical Ventilation Fraction of Inspired Oxygen 30 10/13/22 18:00 10/13/22 18:00 10/13/22 18:14 Temperature 37.0 C Pulse Rate 110 H 110 H 110 H Respiratory Rate
[2022-10-14 12:37] LABS: Glucose Point of Care 276 mg/dl (65-105)
[2022-10-14] MEDS: HYDROCORTISONE SODIUM SUCCINATE 100 MG/2 ML VIAL 50 MG IV PUSH (17:22)
[2022-10-14 18:09] LABS: Glucose Point of Care 250 mg/dl (65-105)
[2022-10-14] MEDS: FENTANYL 2,500MCG/NS250ML(*CRX 2,500 MCG/250 ML BAG IV CONT (18:38)
[2022-10-14 18:54] LABS: Partial Thromboplastin Time 50.1 SECONDS (22.3-36.8)
[2022-10-14] MEDS: HEPARIN SODIUM 5,000 UNITS/ML VIAL 4000 UNITS IV PUSH (20:37)
[2022-10-15] VITALS (37 sets, daily range): BP systolic 105–134; BP diastolic 69–93; PULSE 11–134; RESP 19–30; TEMP 36.9–37.9; O2SAT 91–97
[2022-10-15] MEDS: AMPICILLIN 2 GM/NS 100 ML 2 GM/100 ML BAG IVPB ×2 (00:02→05:36)
[2022-10-15] MEDS: INSULIN ASPART (*BKC) 100 UNITS/ML SUB-Q (00:07)
[2022-10-15 00:08] LABS: Glucose Point of Care 226 mg/dl (65-105)
[2022-10-15] MEDS: LEVALBUTEROL NEB 1.25 MG/3 ML 0.63 MG INHALATION ×4 (02:32→20:14)
[2022-10-15] MEDS: IPRATROPIUM BR 0.02% INH SOLN 0.5 MG/2.5 ML VIAL INHALATION ×4 (02:32→20:15)
[2022-10-15] MEDS: cefTRIAXone 2 GM/NS 100 ML 2 GM/100 ML BAG IVPB (03:36)
[2022-10-15 04:44] LABS: Alveolar/Arterial O2 Gradient 89.8 mmHg; Base Excess ABG 1.2 mEq/l (+/-2.0); Fractional Inspired Oxygen 30 %; HCO3 ABG 25.5 mEq/l (22.0-26.0); Oxygen Content ABG 13.3 %vol (16.0-22.0); Oxyhemoglobin 93.7 % THb (90.0-100.0); PCO2 ABG 38.8 mmHg (35.0-45.0); PO2 ABG 78.5 mmHg (80.0-100.0); PO2 FiO2 Ratio Arterial Blood 2.62 %; pH ABG 7.435 (7.350-7.450)
[2022-10-15 04:47] LABS: Modified Allen's Test Pass; Site Drawn RIGHT RADIAL
[2022-10-15 04:48] LABS: Device VENTILATOR
[2022-10-15 04:52] LABS: Arterial Blood Gas PEEP 5 cmH2O
[2022-10-15 04:53] LABS: Arterial Blood Gas Tidal Volume 400 ml; Arterial Blood Gas Vent Mode CMV; Arterial Blood Gas Ventilator rate 22 /MIN
[2022-10-15] MEDS: CENTRAL LINE FLUSH 10 ML IV PUSH ×4 (05:37→21:47)
[2022-10-15] MEDS: HYDROCORTISONE SODIUM SUCCINATE 100 MG/2 ML VIAL 50 MG IV PUSH (05:37)
[2022-10-15 05:54] LABS: Basophils Percent Auto 0.1 % (0.2-1.2); Eosinophils Percent Auto 0.2 % (0-4.4); Hematocrit 25.8 % (37.0-47.0); Hemoglobin 8.4 g/dL (12.0-15.0); Immature Granulocyte Absolute 1.04 K/mm3 (0.00-0.031); Immature Granulocyte Percent A 5.4 % (0-0.5); Lymphocytes Absolute Auto 0.94 K/mm3 (0.9-3.2); Lymphocytes Percent Auto 4.9 % (18.3-44.2); Mean Corpuscular HGB Conc 32.6 g/dl (32-36); Mean Corpuscular Hemoglobin 30.9 pg (26-34); Mean Corpuscular Volume 94.9 fl (80-100); Mean Platelet Volume 11.9 fl (7.4-10.4); Monocytes Absolute Auto 0.7 K/mm3 (0.1-0.6); Monocytes Percent Auto 3.6 % (2.6-8.5); Neutrophils Absolute Auto 16.4 K/mm3 (1.3-6.7); Neutrophils Percent Auto 85.8 % (45.5-73.1); Platelet Count Result 249 k/mm3 (150-375); Red Blood Count 2.72 M/mm3 (4.2-5.4); Red Cell Distribution Width 17.1 % (11.5-14.5); White Blood Count 19.1 K/mm3 (4.5-10.0)
[2022-10-15 06:05] LABS: Lactic Acid Reflex 1.6 mmol/L (0.7-2.0)
[2022-10-15 06:13] LABS: Alanine Aminotransferase 81 U/L (6-35); Albumin Level 2.4 g/dL (3.5-5.1); Alkaline Phosphatase 136 U/L (38-126); Anion Gap 5 mmol/L (8-16); Aspartate Amino Transferase 94 U/L (14-36); Bilirubin,Total 0.3 mg/dL (0.2-1.3); Blood Urea Nitrogen 33 mg/dL (7-17); Calcium 7.4 mg/dL (8.4-10.2); Carbon Dioxide 30 mmol/L (22-30); Chloride 109 mmol/L (98-107); Creatine Kinase 285 U/L (30-135); Estimated CRCL calculation 51 ml/min; Estimated Glomerular Filt Rate 57; Glucose 194 mg/dL (65-110); Magnesium 2.4 mg/dL (1.6-2.3); Phosphorus 1.9 mg/dL (2.5-4.5); Sodium 144 mmol/L (137-145)
[2022-10-15 06:25] LABS: CRP 18.1 mg/dL (<1.0)
[2022-10-15 06:41] LABS: Anisocytosis 1+ (NORMAL); Platelet Estimate Adequate (Adequate); Poikilocytosis 1+ (NORMAL); Schistocytes Rare (NORMAL)
[2022-10-15 08:02] LABS: Vancomycin Trough 11.2 ug/mL (10.0-20.0)
[2022-10-15] MEDS: ASPIRIN 81 MG CHEWABLE TABLET FEED TUBE (08:34)
[2022-10-15] MEDS: POTASSIUM CHLORIDE 20 MEQ PACKET (FOR LIQUID) 40 MEQ FEED TUBE (08:40)
[2022-10-15] MEDS: VANCOMYCIN 1,000 MG/NS 250 ML 1,000 MG/250 ML BAG 250 MG IVPB (08:41)
[2022-10-15] MEDS: KCL 40 MEQ/WATER 100 ML 100 ML 25 ML IVPB (08:41)
[2022-10-15] MEDS: PANTOPRAZOLE SODIUM IV 40 MG VIAL IV PUSH (08:41)
[2022-10-15] MEDS: MINERAL OIL/WHITE PETROLATUM OINTMENT 1 APPLIC EACH EYE ×2 (08:42→21:47)
--- NOTE | 2022-10-15 10:20 | PM.PNCARD ---
Progress Note: A&P Assessment and Plan (1) Non-ST elevation myocardial infarction (NSTEMI): Code(s): I21.4 - Non-ST elevation (NSTEMI) myocardial infarction Status: Acute Assessment and Plan: Initial troponin of 9.650 with peak troponin at 11. Initial EKG showing sinus tachycardia without any ischemic changes. Repeat EKG read as possible atrial flutter / atrial tachycardia, but I think it's more sinus tachycardia (no evidence of flutter waves on tele when her heart rate slows down). The third EKG clearly shows sinus tachycardia. Elevated troponins in the setting of septic shock, bacteremia, acute respiratory failure requiring mechanical ventilation, TIKA, rhabdo. The elevated troponins could be from demand ischemia due to the above, however, given the degree of troponin elevation, I cannot rule out an acute coronary syndrome. Recommendations: -ASA 81mg once daily if no contraindications. -Initiate high-intensity statin if no contraindication. -Completed Heparin drip per ACS protocol for 48 hours. -Echocardiogram 10/13 showing LVEF 30-35%, mild-moderate MR. Will eventually need some sort of ischemic evaluation depending on her clinical course / recovery from her acute issues. (2) Cardiomyopathy: Code(s): I42.9 - Cardiomyopathy, unspecified Status: Acute Assessment and Plan: Echocardiogram 10/13 showing LVEF 30-35%, mild-moderate MR. New diagnosis of reduced LVEF. In the setting of septic shock, bacteremia, acute respiratory failure requiring mechanical ventilation, TIKA, rhabdo. Will eventually need some sort of ischemic evaluation depending on her clinical course / recovery from her acute issues. Will need to get her started on GDMT when she recovers more and is no longer requiring pressors and when TIKA resolves. (3) Septic shock: Code(s): A41.9 - Sepsis, unspecified organism; R65.21 - Severe sepsis with septic shock Status: Acute Assessment and Plan: On pressors. Staph aureus bacteremia. Management as per ICU team. (4) Acute respiratory failure: Code(s): J96.00 - Acute respiratory failure, unspecified whether with hypoxia or hypercapnia Status: Acute Assessment and Plan: Intubated and on mechanical ventilation. Management as per ICU team. (5) Rhabdomyolysis: Code(s): M62.82 - Rhabdomyolysis Status: Acute Assessment and Plan: Peak CK level of 3032, now downtrending. (6) Bacteremia: Code(s): R78.81 - Bacteremia Status: Acute Assessment and Plan: Blood cultures growing Staph aureus. Management as per ICU team. Plan Recommendations/plan discussed with Salvage Cutter, Dr. Vences. Subjective Date/time seen: 10/15/22 10:20 Interval history: Reason for visit: Elevated troponins, cardiomyopathy HPI: We are consulted for elevated troponins. Patient is currently intubated, therefore, unable to obtain any history from the patient. No family at bedside. Therefore, all history obtained from the chart and the medical team. This is a 62-year-old female who is admitted with septic shock, acute respiratory failure requiring intubation and mechanical ventilation, bacteremia, rhabdomyolysis, acute kidney injury. She has a history of anxiety, arthritis, depression, hypertension, hyperlipidemia who presented to [facility] 10/12/2022 with altered mental status. EMS was sent to do a wellness check on the patient as she had not gone to work. Patient found on the ground unresponsive and mottled. Initial labs notable for Cr 1.5, elevated AST/ALT, elevated CK, initial troponin of 9.650. UDS negative. CTA C/A/P with questionable pyelonephritis. Patient intubated in the ICU for respiratory distress.? Date of service 10/14: Remains intubated. Still on pressors. Tele stable. Date of service 10/15: Remains intubated. Off of Levophed. Sinus tach on tele. Review of Systems Review of Systems: ROS unobtainable: Yes unobtainable due to endotracheal tube
--- NOTE | 2022-10-15 10:57 | PCFNICU ---
ICU Rounding Note: Pt current nutrition is Vital AF 1.2 at 65 ml/hr. Last recorded weight is 71.5 kg. Bowel Motility: +BM reported 10/15 Labs Reviewed:Mg 2.4, BUN 33, Glu 194 Meds Noted:Vancomycin,Fentanyl, Protonix Skin: WNL Additional Notes: Patient remains on mechanical vent. Tube feedings at goal rate of 65 ml/hr and tolerating per nursing. Flush 30 ml q 4 hours. EEG today. Agree with diet orders. Following daily in ICU rounds. Will monitor weight, labs, tube feeding tolerance, skin every Wednesday and Wednesday.
--- NOTE | 2022-10-15 11:32 | P.NEURO_ITS ---
Neurology EEG Report General Information Date of Study: 10/15/22 TEST Routine EEG DIAGNOSIS Encephalopathy CONDITION OF RECORDING Unresponsive EEG NUMBER [id number] CLINICAL HISTORY Patient was found at home unresponsive. She is currently in the ICU, intubated. Sedation is being held. At the start of stet up for this EEG, patient does open eyes on command, but did not follow any other commands. EEG DESCRIPTION The recording is continuous, although at times obscured by movement artifact. The background consists of diffuse, mostly theta range activity with admixed, slower delta range activity. Occasionally, a faster alpha range rhythm is ob served as well. Intermittent triphasic waves are noted throughout the recording. Normal sleep architecture was not observed. There are no epileptiform discharges or seizures noted. IMPRESSION This is an abnormal routine EEG due to the presence of generalized slowing and triphasic waves. These findings together are suggestive of encephalopathy due to metabolic etiology. No seizures noted during the recording. Clinical correlation recommended.
[2022-10-15 11:42] LABS: Glucose Point of Care 197 mg/dl (65-105)
[2022-10-15] MEDS: ACETAMINOPHEN ELIXIR 325 MG/10.15 ML UDC 650 MG PO (12:08)
[2022-10-15] MEDS: PROPOFOL IV EMULSION 100 ML 2.15 MG IV CONT (12:43)
--- NOTE | 2022-10-15 12:43 | WPDINTPN ---
Progress Note: A&P Assessment and Plan (1) Acute respiratory failure: Code(s): J96.00 - Acute respiratory failure, unspecified whether with hypoxia or hypercapnia Status: Acute Assessment and Plan: 10/12: Patient admitted with encephalopathy, was protecting airways, received 4 L of IV fluid bolus, once in the ICU she developed respiratory distress was intubated. She was also given racemic epinephrine for some questionable stridor -currently on CMV mode of ventilation, peep of 5 and 30% FiO2, wean FiO2 to maintain O2 sats greater than 92% -chest x-ray this morning: Endotracheal tube, NG tube, and right IJ line are unchanged. Minimal left pleural effusion is present. Right lung clear.? Cardiomediastinal silhouette is stable. Bones and soft tissues are unremarkable.. -continue bronchodilators -ABGs reviewed -sedated with fentanyl only, maintain RASS of 0 to-1 -daily sedation vacation 10/12: CTA chest abdomen pelvis Questionable pyelonephritis versus motion artifact resulting in heterogeneous appearance of the kidneys. Correlate clinically and with urinalysis. Mild dependent atelectatic change, otherwise no significant abnormality seen in the lungs. No pulmonary embolus identified. (2) Septic shock: Code(s): A41.9 - Sepsis, unspecified organism; R65.21 - Severe sepsis with septic shock Status: Acute Assessment and Plan: Patient presented with encephalopathy, acute kidney injury, fevers of 104.0? F, elevated white blood cell, elevated procalcitonin and CRP -received adequate IV fluids in the ER and ICU on admission -OFF LEVOPHED -10/12: Blood cultures growing MSSA / BOTTLES -10/12: Urine culture NEGATIVE -10/13: Sputum cultures growing yeast -will start oxacillin, discontinue ceftriaxone, ampicillin and vancomycin -will DC stress dose steroids (3) Bacteremia: Code(s): R78.81 - Bacteremia Status: Acute Assessment and Plan: Staph aureus bacteremia MSSA -antibiotics switched to oxacillin -repeat blood cultures pending, if they are positive patient will require COTY (4) Acute kidney injury: Code(s): N17.9 - Acute kidney failure, unspecified Status: Acute Assessment and Plan: Patient presented with acute kidney injury likely related to hypovolemia, rhabdomyolysis, bacteremia, sepsis/septic shock -adequately fluid-resuscitated -urine output has been adequate -creatinine normal -continue to monitor renal function, electrolytes and urine output -10/13: Renal ultrasound no hydronephrosis, minimal right perinephric fluid -urine lytes show prerenal picture, patient has been adequately fluid-resuscitated, -urine eosinophils are negative (5) Rhabdomyolysis: Code(s): M62.82 - Rhabdomyolysis Status: Acute Assessment and Plan: Patient was found on the ground, unknown amount of down time as the has been conflicting information -CK levels were elevated, patient was adequately fluid-resuscitated -CK treat levels trending down well (6) Non-ST elevation myocardial infarction (NSTEMI): Code(s): I21.4 - Non-ST elevation (NSTEMI) myocardial infarction Status: Acute Assessment and Plan: Troponins on admission were 9.650->10.700-->10.700->11.000-->5.460 -patient diagnosed with NSTEMI, -status post heparin infusion -continue aspirin 81 mg -will start atorvastatin -appreciate cardiology evaluation and recommendation -patient will require ischemic workup (7) Cardiomyopathy: Code(s): I42.9 - Cardiomyopathy, unspecified Status: Acute Assessment and Plan: 10/13/2022 echocardiogram: Showed EF 30-35%, [id number] mitral valve regurg RV systolic function is reduced New onset cardiomyopathy could be related to NSTEMI, septic shock -will require ischemic -cardiology continues to follow (8) Encephalopathy: Code(s): G93.40 - Encephalopathy, unspecified Status: Acute Assessment and Plan: Encephalopa
[2022-10-15] MEDS: OXACILLIN SODIUM 2 GM in SODIUM CHLORIDE 0.9% IV 100 ML IVPB ×3 (13:18→21:47)
--- NOTE | 2022-10-15 14:37 | PC.NURSE ---
EMS delivered pt's purse after multiple attempts to deliver back to her address. locked in cabinet in patient's room
[2022-10-15 17:11] LABS: Glucose Point of Care 182 mg/dl (65-105)
[2022-10-16] VITALS (41 sets, daily range): BP systolic 132–166; BP diastolic 79–110; PULSE 100–155; RESP 20–36; TEMP 37.2–38.3; O2SAT 91–99
[2022-10-16] MEDS: OXACILLIN SODIUM 2 GM in SODIUM CHLORIDE 0.9% IV 100 ML IVPB ×6 (00:37→20:18)
[2022-10-16] MEDS: ACETAMINOPHEN ELIXIR 325 MG/10.15 ML UDC 650 MG PO ×2 (00:37→14:34)
[2022-10-16 00:40] LABS: Glucose Point of Care 169 mg/dl (65-105)
[2022-10-16] MEDS: LEVALBUTEROL NEB 1.25 MG/3 ML 0.63 MG INHALATION ×4 (02:08→20:16)
[2022-10-16] MEDS: IPRATROPIUM BR 0.02% INH SOLN 0.5 MG/2.5 ML VIAL INHALATION ×4 (02:09→20:16)
[2022-10-16 04:41] LABS: Basophils Absolute Auto 0.1 K/mm3 (0.0-0.1); Basophils Percent Auto 0.9 % (0.2-1.2); Eosinophils Percent Auto 0.1 % (0-4.4); Hematocrit 25.5 % (37.0-47.0); Hemoglobin 8.3 g/dL (12.0-15.0); Immature Granulocyte Absolute 0.99 K/mm3 (0.00-0.031); Immature Granulocyte Percent A 6.4 % (0-0.5); Lymphocytes Percent Auto 6.4 % (18.3-44.2); Mean Corpuscular HGB Conc 32.5 g/dl (32-36); Mean Corpuscular Hemoglobin 30.7 pg (26-34); Mean Corpuscular Volume 94.4 fl (80-100); Monocytes Absolute Auto 0.7 K/mm3 (0.1-0.6); Monocytes Percent Auto 4.6 % (2.6-8.5); Neutrophils Absolute Auto 12.7 K/mm3 (1.3-6.7); Neutrophils Percent Auto 81.6 % (45.5-73.1); Nucleated Red Blood Cells Absolute Auto 0.1 K/mm3 (0.0-0.012); Nucleated Red Blood Cells Perc 0.3 % (0.0-0.2); Platelet Count Result 283 k/mm3 (150-375); Red Cell Distribution Width 17.2 % (11.5-14.5); White Blood Count 15.5 K/mm3 (4.5-10.0)
[2022-10-16] MEDS: CENTRAL LINE FLUSH 10 ML IV PUSH ×3 (04:41→20:20)
[2022-10-16 04:44] LABS: Lactic Acid Reflex 1.6 mmol/L (0.7-2.0)
[2022-10-16 04:49] LABS: Anisocytosis 1+ (NORMAL); Hypochromasia 1+ (NORMAL); Platelet Estimate Adequate (Adequate); Poikilocytosis 1+ (NORMAL); Schistocytes Rare (NORMAL); Target Cells 1+ (NORMAL)
[2022-10-16 05:10] LABS: Alanine Aminotransferase 128 U/L (6-35); Albumin Level 2.4 g/dL (3.5-5.1); Alkaline Phosphatase 143 U/L (38-126); Anion Gap 6 mmol/L (8-16); Aspartate Amino Transferase 144 U/L (14-36); Bilirubin,Total 0.4 mg/dL (0.2-1.3); Blood Urea Nitrogen 37 mg/dL (7-17); Calcium 7.5 mg/dL (8.4-10.2); Carbon Dioxide 32 mmol/L (22-30); Chloride 113 mmol/L (98-107); Creatine Kinase 293 U/L (30-135); Estimated CRCL calculation 51 ml/min; Estimated Glomerular Filt Rate 57; Glucose 166 mg/dL (65-110); Magnesium 2.4 mg/dL (1.6-2.3); Phosphorus 1.2 mg/dL (2.5-4.5); Potassium 3.1 mmol/L (3.4-5.0); Sodium 151 mmol/L (137-145); Triglycerides 213 mg/dL (<150)
[2022-10-16 05:13] LABS: CRP 16.4 mg/dL (<1.0)
[2022-10-16 05:33] LABS: Alveolar/Arterial O2 Gradient 100.9 mmHg; Carboxyhemoglobin 0.8 % THb (0-2.0); Fractional Inspired Oxygen 30 %; HCO3 ABG 27.5 mEq/l (22.0-26.0); Oxygen Content ABG 11.4 %vol (16.0-22.0); Oxygen Saturation ABG 95.3 % (95.0-100.0); Oxyhemoglobin 92.4 % THb (90.0-100.0); PCO2 ABG 36.8 mmHg (35.0-45.0); PO2 ABG 69.8 mmHg (80.0-100.0); PO2 FiO2 Ratio Arterial Blood 2.33 %; Reduced Hemoglobin 6.8 %THb (0-5.0); Total Hemoglobin 8.7 g/dL (12.0-18.0); pH ABG 7.492 (7.350-7.450)
[2022-10-16 05:35] LABS: Device VENTILATOR; Modified Allen's Test Pass; Site Drawn RIGHT RADIAL
[2022-10-16 05:36] LABS: Arterial Blood Gas PEEP 5 cmH2O; Arterial Blood Gas Tidal Volume 400 ml; Arterial Blood Gas Vent Mode CMV; Arterial Blood Gas Ventilator rate 22 /MIN
[2022-10-16] MEDS: KCL 40 MEQ/WATER 100 ML 100 ML 25 ML IVPB (08:42)
[2022-10-16] MEDS: POTASSIUM CHLORIDE 20 MEQ PACKET (FOR LIQUID) 40 MEQ FEED TUBE (08:45)
[2022-10-16] MEDS: POTASSIUM/PHOSPHORUS/SODIUM 1.5 GM PACKET 1 PACKET PO (08:46)
[2022-10-16] MEDS: METOPROLOL TARTRATE 25 MG TABLET PO ×2 (08:47→20:17)
[2022-10-16] MEDS: lisinopriL 20 MG TABLET PO (08:50)
[2022-10-16] MEDS: ASPIRIN 81 MG CHEWABLE TABLET FEED TUBE (08:51)
[2022-10-16] MEDS: PANTOPRAZOLE SODIUM IV 40 MG VIAL IV PUSH (08:51)
[2022-10-16] MEDS: ATORVASTATIN 40 MG TABLET PO (08:51)
[2022-10-16] MEDS: MINERAL OIL/WHITE PETROLATUM OINTMENT 1 APPLIC EACH EYE ×2 (08:59→20:17)
[2022-10-16] MEDS: dexmedeTOMIDine 400 MCG/100 ML 400 MCG/100 ML BAG IV CONT (10:54)
--- NOTE | 2022-10-16 11:21 | PCNFU ---
Nutrition Follow-Up Complete: Inadequate Energy Expenditure as related to mechanical ventilation as evidenced by NPO/enternal feeding requirments. Meet estimanted nutritional needs. - Goal being met with tube feeding Goal: Pt current nutrition is Vital 1.2 @ 65 ml/h with flushes 30 ml q 4 hours. 1716 kcal, 99 g protein, 1160 ml free water. Nutrition recommendation: Add Candido BID for new pressure injury for additional 90 kcal and 2.5 g protein with arginine, glutamine and zinc to support wound healing (mix with 120 ml water). Increase flushes to 75 ml/h for additional free water based on labs. Total water 1850 ml/d Last recorded weight is 72.1 kg. Bowel Motility: FMS for liquid stools Labs Reviewed: Hgb 8.3, Hct 25.5, Alb 2.4, Na 151, K+ 3.1, GFR 57, BUN 37, Cre 1.0, TRIG 213 Meds Noted: Propofol at 10 ml= 113 kcal. Precedex, fentanyl, protonix Skin: Stage II coccyx: NEW Additional Notes: New pressure ulcer noted. Candido added. Also sodium and BUN are high, recommended increased flushes. Will monitor weight, labs, tube feeding tolerance, skin every Wednesday and Wednesday.
--- NOTE | 2022-10-16 11:38 | WPDINTPN ---
Progress Note: A&P Assessment and Plan (1) Acute respiratory failure: Code(s): J96.00 - Acute respiratory failure, unspecified whether with hypoxia or hypercapnia Status: Acute Assessment and Plan: 10/12: Patient admitted with encephalopathy, was protecting airways, received 4 L of IV fluid bolus, once in the ICU she developed respiratory distress was intubated. She was also given racemic epinephrine for some questionable stridor -currently on CMV mode of ventilation, peep of 5 and 30% FiO2, wean FiO2 to maintain O2 sats greater than 92% -chest x-ray this morning: Endotracheal tube, NG tube, and right IJ line are unchanged. Minimal left pleural effusion is present. Right lung clear.? Cardiomediastinal silhouette is stable. Bones and soft tissues are unremarkable.. -continue bronchodilators -ABGs reviewed -will switch sedation to Precedex infusion discontinue propofol and fentanyl. Maintain RASS of 0 to-1 -daily sedation vacation -once patient is more awake will place her on spontaneous breathing 10/12: CTA chest abdomen pelvis Questionable pyelonephritis versus motion artifact resulting in heterogeneous appearance of the kidneys. Correlate clinically and with urinalysis. Mild dependent atelectatic change, otherwise no significant abnormality seen in the lungs. No pulmonary embolus identified. (2) Septic shock: Code(s): A41.9 - Sepsis, unspecified organism; R65.21 - Severe sepsis with septic shock Status: Acute Assessment and Plan: Patient presented with encephalopathy, acute kidney injury, fevers of 104.0? F, elevated white blood cell, elevated procalcitonin and CRP -received adequate IV fluids in the ER and ICU on admission -OFF LEVOPHED -10/12: Blood cultures growing MSSA 2/ BOTTLES -10/12: Urine culture NEGATIVE -10/13: Sputum cultures growing yeast -10/14: Repeat blood cultures are negative so far -continue oxacillin (10/15) , discontinue ceftriaxone, ampicillin and vancomycin -status post stress dose steroids (3) Bacteremia: Code(s): R78.81 - Bacteremia Status: Acute Assessment and Plan: Staph aureus bacteremia MSSA -antibiotics switched to oxacillin (10/15) -10/15 repeat blood cultures negative so far (4) Acute kidney injury: Code(s): N17.9 - Acute kidney failure, unspecified Status: Acute Assessment and Plan: Patient presented with acute kidney injury likely related to hypovolemia, rhabdomyolysis, bacteremia, sepsis/septic shock -adequately fluid-resuscitated -urine output has been adequate -creatinine normal -continue to monitor renal function, electrolytes and urine output -10/13: Renal ultrasound no hydronephrosis, minimal right perinephric fluid -urine lytes show prerenal picture, patient has been adequately fluid-resuscitated, -urine eosinophils are negative Hypernatremia: Sodium of 151, will increase free water flushes Hypokalemia, will replace potassium (5) Rhabdomyolysis: Code(s): M62.82 - Rhabdomyolysis Status: Acute Assessment and Plan: Patient was found on the ground, unknown amount of down time as the has been conflicting information -CK levels were elevated, patient was adequately fluid-resuscitated -CK treat levels trending down well (6) Non-ST elevation myocardial infarction (NSTEMI): Code(s): I21.4 - Non-ST elevation (NSTEMI) myocardial infarction Status: Acute Assessment and Plan: Troponins on admission were 9.650->10.700-->10.700->11.000-->5.460 -patient diagnosed with NSTEMI, -status post heparin infusion -continue aspirin 81 mg -continue atorvastatin -appreciate cardiology evaluation and recommendation -patient will require ischemic workup (7) Cardiomyopathy: Code(s): I42.9 - Cardiomyopathy, unspecified Status: Acute Assessment and Plan: 10/13/2022 echocardiogram: Showed EF 30-35%, [id number] mitral valve regurg RV systolic function is reduced
[2022-10-16] MEDS: ENOXAPARIN 40 MG/0.4 ML SYRINGE SUB-Q (12:01)
[2022-10-16 12:06] LABS: Glucose Point of Care 149 mg/dl (65-105)
--- NOTE | 2022-10-16 13:04 | PM.PNCARD ---
Progress Note: A&P Assessment and Plan (1) Non-ST elevation myocardial infarction (NSTEMI): Code(s): I21.4 - Non-ST elevation (NSTEMI) myocardial infarction Status: Acute Assessment and Plan: Initial troponin of 9.650 with peak troponin at 11. Initial EKG showing sinus tachycardia without any ischemic changes. Repeat EKG read as possible atrial flutter / atrial tachycardia, but I think it's more sinus tachycardia (no evidence of flutter waves on tele when her heart rate slows down). The third EKG clearly shows sinus tachycardia. Elevated troponins in the setting of septic shock, bacteremia, acute respiratory failure requiring mechanical ventilation, TIKA, rhabdo. The elevated troponins could be from demand ischemia due to the above, however, given the degree of troponin elevation, I cannot rule out an acute coronary syndrome. Recommendations: -ASA 81mg once daily if no contraindications. -Initiate high-intensity statin if no contraindication. -Completed Heparin drip per ACS protocol for 48 hours. -Echocardiogram 10/13 showing LVEF 30-35%, mild-moderate MR. Will eventually need some sort of ischemic evaluation depending on her clinical course / recovery from her acute issues. (2) Cardiomyopathy: Code(s): I42.9 - Cardiomyopathy, unspecified Status: Acute Assessment and Plan: Echocardiogram 10/13 showing LVEF 30-35%, mild-moderate MR. New diagnosis of reduced LVEF. In the setting of septic shock, bacteremia, acute respiratory failure requiring mechanical ventilation, TIKA, rhabdo. Will eventually need some sort of ischemic evaluation depending on her clinical course / recovery from her acute issues. Off pressors and TIKA resolved. For GDMT she is on lisinopril and metoprolol. Can add spironolactone and jardiance since BP and renal function have normalized. (3) Septic shock: Code(s): A41.9 - Sepsis, unspecified organism; R65.21 - Severe sepsis with septic shock Status: Acute Assessment and Plan: She is off pressors at this point. Staph aureus bacteremia. Management as per ICU team. (4) Acute respiratory failure: Code(s): J96.00 - Acute respiratory failure, unspecified whether with hypoxia or hypercapnia Status: Acute Assessment and Plan: Intubated and on mechanical ventilation. Management as per ICU team. (5) Rhabdomyolysis: Code(s): M62.82 - Rhabdomyolysis Status: Acute Assessment and Plan: Peak CK level of 3032, now downtrending. (6) Bacteremia: Code(s): R78.81 - Bacteremia Status: Acute Assessment and Plan: Blood cultures growing Staph aureus. Management as per ICU team. Plan Recommendations/plan discussed with Waste Disposal Leakage Tester, Dr. Vences. Subjective Date/time seen: 10/16/22 13:04 Interval history: Reason for visit: Elevated troponins, cardiomyopathy HPI: We are consulted for elevated troponins. Patient is currently intubated, therefore, unable to obtain any history from the patient. No family at bedside. Therefore, all history obtained from the chart and the medical team. This is a 62-year-old female who is admitted with septic shock, acute respiratory failure requiring intubation and mechanical ventilation, bacteremia, rhabdomyolysis, acute kidney injury. She has a history of anxiety, arthritis, depression, hypertension, hyperlipidemia who presented to [place] [facility] 10/12/2022 with altered mental status. EMS was sent to do a wellness check on the patient as she had not gone to work. Patient found on the ground unresponsive and mottled. Initial labs notable for Cr 1.5, elevated AST/ALT, elevated CK, initial troponin of 9.650. UDS negative. CTA C/A/P with questionable pyelonephritis. Patient intubated in the ICU for respiratory distress.? Date of service 10/14: Remains intubated. Still on pressors. Tele stable. Date of service 10/15: Remains intubated. Off of Levophed. Sinus tach on tele. Date of service 10/16/22: Remains
[2022-10-16 17:57] LABS: Glucose Point of Care 189 mg/dl (65-105)
[2022-10-16] MEDS: dexmedeTOMIDine 400 MCG/100 ML 400 MCG/100 ML BAG 14.42 MCG IV CONT (22:01)
[2022-10-16] MEDS: MIDAZOLAM HCL (*CRX) 2 MG/2 ML VIAL IV PUSH (22:04)
[2022-10-17] VITALS (34 sets, daily range): BP systolic 108–157; BP diastolic 70–99; PULSE 85–120; RESP 12–33; TEMP 37.5–38.4; O2SAT 93–98
[2022-10-17] MEDS: OXACILLIN SODIUM 2 GM in SODIUM CHLORIDE 0.9% IV 100 ML IVPB ×6 (00:23→20:04)
[2022-10-17 00:31] LABS: Glucose Point of Care 175 mg/dl (65-105)
[2022-10-17] MEDS: IPRATROPIUM BR 0.02% INH SOLN 0.5 MG/2.5 ML VIAL INHALATION ×4 (02:17→20:58)
[2022-10-17] MEDS: LEVALBUTEROL NEB 1.25 MG/3 ML 0.63 MG INHALATION ×4 (02:17→20:58)
[2022-10-17] MEDS: dexmedeTOMIDine 400 MCG/100 ML 400 MCG/100 ML BAG 16.22 MCG IV CONT ×2 (03:48→09:47)
[2022-10-17 05:13] LABS: Basophils Absolute Auto 0.1 K/mm3 (0.0-0.1); Basophils Percent Auto 0.7 % (0.2-1.2); Eosinophils Percent Auto 0.3 % (0-4.4); Hematocrit 27.3 % (37.0-47.0); Hemoglobin 8.6 g/dL (12.0-15.0); Immature Granulocyte Absolute 1.26 K/mm3 (0.00-0.031); Immature Granulocyte Percent A 8.2 % (0-0.5); Lymphocytes Absolute Auto 0.96 K/mm3 (0.9-3.2); Lymphocytes Percent Auto 6.3 % (18.3-44.2); Mean Corpuscular HGB Conc 31.5 g/dl (32-36); Mean Corpuscular Hemoglobin 30.5 pg (26-34); Mean Corpuscular Volume 96.8 fl (80-100); Mean Platelet Volume 11.4 fl (7.4-10.4); Monocytes Absolute Auto 0.8 K/mm3 (0.1-0.6); Monocytes Percent Auto 5.2 % (2.6-8.5); Neutrophils Absolute Auto 12.2 K/mm3 (1.3-6.7); Neutrophils Percent Auto 79.3 % (45.5-73.1); Nucleated Red Blood Cells Perc 0.3 % (0.0-0.2); Platelet Count Result 344 k/mm3 (150-375); Red Blood Count 2.82 M/mm3 (4.2-5.4); Red Cell Distribution Width 17.3 % (11.5-14.5); White Blood Count 15.3 K/mm3 (4.5-10.0)
[2022-10-17] MEDS: CENTRAL LINE FLUSH 10 ML IV PUSH ×4 (05:15→20:04)
[2022-10-17 05:24] LABS: Alanine Aminotransferase 126 U/L (6-35); Albumin Level 2.7 g/dL (3.5-5.1); Alkaline Phosphatase 161 U/L (38-126); Anion Gap 3 mmol/L (8-16); Aspartate Amino Transferase 102 U/L (14-36); Bilirubin,Total 0.4 mg/dL (0.2-1.3); Blood Urea Nitrogen 40 mg/dL (7-17); Calcium 7.9 mg/dL (8.4-10.2); Carbon Dioxide 34 mmol/L (22-30); Chloride 113 mmol/L (98-107); Creatine Kinase 295 U/L (30-135); Estimated CRCL calculation 58 ml/min; Estimated Glomerular Filt Rate > 60; Glucose 189 mg/dL (65-110); Lactic Acid Reflex 1.4 mmol/L (0.7-2.0); Magnesium 2.2 mg/dL (1.6-2.3); Phosphorus 2.4 mg/dL (2.5-4.5); Potassium 3.2 mmol/L (3.4-5.0); Sodium 150 mmol/L (137-145)
[2022-10-17 05:54] LABS: Alveolar/Arterial O2 Gradient 171.5 mmHg; Base Excess ABG 6.7 mEq/l (+/-2.0); Fractional Inspired Oxygen 40 %; HCO3 ABG 30.6 mEq/l (22.0-26.0); Oxygen Content ABG 19.5 %vol (16.0-22.0); Oxygen Saturation ABG 94.6 % (95.0-100.0); Oxyhemoglobin 93.2 % THb (90.0-100.0); PCO2 ABG 40.9 mmHg (35.0-45.0); PO2 ABG 66.7 mmHg (80.0-100.0); PO2 FiO2 Ratio Arterial Blood 1.67 %; Total Hemoglobin 14.9 g/dL (12.0-18.0); pH ABG 7.492 (7.350-7.450)
[2022-10-17 05:55] LABS: Arterial Blood Gas Ventilator rate 22 /MIN; Device VENTILATOR; Modified Allen's Test Pass; Site Drawn RIGHT RADIAL
[2022-10-17 05:56] LABS: Arterial Blood Gas PEEP 5 cmH2O; Arterial Blood Gas Tidal Volume 400 ml; Arterial Blood Gas Vent Mode CMV
[2022-10-17] MEDS: KCL 40 MEQ/WATER 100 ML 100 ML 25 ML IVPB (09:02)
[2022-10-17] MEDS: METOPROLOL TARTRATE 50 MG TAB PO ×2 (09:14→20:06)
[2022-10-17] MEDS: POTASSIUM CHLORIDE 20 MEQ PACKET (FOR LIQUID) 40 MEQ PO ×2 (09:15→16:12)
[2022-10-17] MEDS: lisinopriL 20 MG TABLET PO (09:15)
[2022-10-17] MEDS: ATORVASTATIN 40 MG TABLET PO (09:15)
[2022-10-17] MEDS: PANTOPRAZOLE SODIUM IV 40 MG VIAL IV PUSH (09:16)
[2022-10-17] MEDS: EMPAGLIFLOZIN 10 MG TABLET PO (09:16)
[2022-10-17] MEDS: SPIRONOLACTONE 12.5 MG TABLET PO (09:16)
[2022-10-17] MEDS: ASPIRIN 81 MG CHEWABLE TABLET FEED TUBE (09:16)
[2022-10-17] MEDS: MINERAL OIL/WHITE PETROLATUM OINTMENT 1 APPLIC EACH EYE ×2 (09:16→20:11)
[2022-10-17 09:45] LABS: Hepatitis B Surface Antigen Negative (Negative)
[2022-10-17] MEDS: ENOXAPARIN 40 MG/0.4 ML SYRINGE SUB-Q (09:45)
[2022-10-17 09:51] LABS: HAV RESULT Negative (Negative); Hepatitis B Core IgM Result Negative (Negative)
[2022-10-17 10:03] LABS: Hepatitis C Virus Antibody Negative (Negative)
[2022-10-17] MEDS: ACETAMINOPHEN ELIXIR 325 MG/10.15 ML UDC 650 MG PO (11:22)
--- NOTE | 2022-10-17 11:49 | P.PNIM_ITS ---
Progress Note: A&P Assessment and Plan (1) Acute respiratory failure: Code(s): J96.00 - Acute respiratory failure, unspecified whether with hypoxia or hypercapnia Status: Acute Assessment and Plan: 10/12: Patient admitted with encephalopathy, was protecting airways, received 4 L of IV fluid bolus, once in the ICU she developed respiratory distress was intubated. She was also given racemic epinephrine for some questionable stridor -currently on CMV mode of ventilation, peep of 5 and 30% FiO2, wean FiO2 to maintain O2 sats greater than 92% -chest x-ray this morning: Endotracheal tube, NG tube, and right IJ line are unchanged. Minimal left pleural effusion is present. Right lung clear.? Cardiomediastinal silhouette is stable. Bones and soft tissues are unremarkable.. -continue bronchodilators -ABGs reviewed -will switch sedation to Precedex infusion discontinue propofol and fentanyl. Maintain RASS of 0 to-1 -daily sedation vacation -once patient is more awake will place her on spontaneous breathing 10/12: CTA chest abdomen pelvis Questionable pyelonephritis versus motion artifact resulting in heterogeneous appearance of the kidneys. Correlate clinically and with urinalysis. Mild dependent atelectatic change, otherwise no significant abnormality seen in the lungs. No pulmonary embolus identified. (2) Septic shock: Code(s): A41.9 - Sepsis, unspecified organism; R65.21 - Severe sepsis with septic shock Status: Acute Assessment and Plan: Patient presented with encephalopathy, acute kidney injury, fevers of 104.0? F, elevated white blood cell, elevated procalcitonin and CRP -received adequate IV fluids in the ER and ICU on admission -OFF LEVOPHED -10/12: Blood cultures growing MSSA 2/ BOTTLES -10/12: Urine culture NEGATIVE -10/13: Sputum cultures growing yeast -10/14: Repeat blood cultures are negative so far -continue oxacillin (10/15) , discontinue ceftriaxone, ampicillin and vancomycin -status post stress dose steroids (3) Bacteremia: Code(s): R78.81 - Bacteremia Status: Acute Assessment and Plan: Staph aureus bacteremia MSSA -antibiotics switched to oxacillin (10/15) -10/15 repeat blood cultures negative so far (4) Acute kidney injury: Code(s): N17.9 - Acute kidney failure, unspecified Status: Acute Assessment and Plan: Patient presented with acute kidney injury likely related to hypovolemia, rhabdomyolysis, bacteremia, sepsis/septic shock -adequately fluid-resuscitated -urine output has been adequate -creatinine normal -continue to monitor renal function, electrolytes and urine output -10/13: Renal ultrasound no hydronephrosis, minimal right perinephric fluid -urine lytes show prerenal picture, patient has been adequately fluid- resuscitated, -urine eosinophils are negative Hypernatremia: Sodium of 151, will increase free water flushes Hypokalemia, will replace potassium (5) Rhabdomyolysis: Code(s): M62.82 - Rhabdomyolysis Status: Acute Assessment and Plan: Patient was found on the ground, unknown amount of down time as the has been conflicting information -CK levels were elevated, patient was adequately fluid-resuscitated -CK treat levels trending down well (6) Non-ST elevation myocardial infarction (NSTEMI): Code(s): I21.4 - Non-ST elevation (NSTEMI) myocardial infarction Status: Acute Assessment and Plan: Troponins on admission were 9.650->10.700-->10.700->11.000-->5.460 -patient diagnosed with NSTEMI, -status post heparin infusion -continue a
--- NOTE | 2022-10-17 12:12 | PM.PNCARD ---
Progress Note: A&P Assessment and Plan (1) Cardiomyopathy: Code(s): I42.9 - Cardiomyopathy, unspecified Status: Acute Plan Continue aggressive supportive care. Patient is potentially going to be extubated in the next 24-48 hours according to the nursing staff. We will continue to follow and initiate medical treatment for LV systolic dysfunction as tolerated and appropriate. At this point no further cardiac recommendations while she is intubated. Emanuel Mallory MD [facility] Subjective Date/time seen: Date of service: 10/17/22 12:12 Interval history: Reason for visit: Elevated troponins, cardiomyopathy HPI: We are consulted for elevated troponins. Patient is currently intubated, therefore, unable to obtain any history from the patient. No family at bedside. Therefore, all history obtained from the chart and the medical team. This is a 62-year-old female who is admitted with septic shock, acute respiratory failure requiring intubation and mechanical ventilation, bacteremia, rhabdomyolysis, acute kidney injury. She has a history of anxiety, arthritis, depression, hypertension, hyperlipidemia who presented to [place] ER 10/12/2022 with altered mental status. EMS was sent to do a wellness check on the patient as she had not gone to work. Patient found on the ground unresponsive and mottled. Initial labs notable for Cr 1.5, elevated AST/ALT, elevated CK, initial troponin of 9.650. UDS negative. CTA C/A/P with questionable pyelonephritis. Patient intubated in the ICU for respiratory distress.? Date of service 10/14: Remains intubated. Still on pressors. Tele stable. Date of service 10/15: Remains intubated. Off of Levophed. Sinus tach on tele. Date of service 10/16/22: Remains intubated, off pressors and sedation. Does open eyes not not following commands Exam Const: General: no acute distress Other: Intubated and sedated HENMT: Other: OETT in place Resp: Other: On mechanical ventilation via OETT. Cardio: Rate: regular rate and tachycardic Rhythm: regular rhythm Other: No lower extremity edema Urinary Catheter: Urinary Catheter: patent and draining Neuro: Other: Cannot assess due to intubation/sedation Extrem: General: normal to inspection Psych: Other: Cannot assess due to intubation/sedation Objective Data Vital Signs Vital Signs: Vital Signs - 24 hr 10/16/22 12:48 10/16/22 13:50 10/16/22 13:50 Temperature Pulse Rate 125 H 120 H 120 H Respiratory Rate 31 H 25 H 25 H Blood Pressure Pulse Oximetry Oxygen Delivery Fraction of Inspired Oxygen 10/16/22 14:00 10/16/22 14:00 10/16/22 14:09 Temperature Pulse Rate 124 H 124 H 119 H Respiratory Rate 20 Blood Pressure 165/108 H Pulse Oximetry 92 91 Oxygen Delivery Mechanical Ventilation Fraction of Inspired Oxygen 30 10/16/22 14:05 10/16/22 14:34 10/16/22 16:00 Temperature 38.3 C H 38.1 C H Pulse Rate 119 H 115 H Respiratory Rate 22 H 24 H Blood Pressure 148/94 H Pulse Oximetry 93 Oxygen Delivery Fraction of Inspired Oxygen 10/16/22 16:00 10/16/22 16:00 10/16/22 14:00 Temperature Pulse Rate 122 H Respiratory Rate 22 H Blood Pressure Pulse Oximetry 93 Oxygen Delivery Mechanical Ventilation Fraction of Inspired Oxygen 40 40 10/16/22 15:00 10/16/22 16:00 10/16/22 16:27 Temperature Pulse Rate 115 H 155 H 110 H Respiratory Rate 22 H 22 H Blood Pressure Pulse Oximetry 93 Oxygen Delivery Mechanical Ventilation Fraction of Inspired Oxygen 40 10/16/22 15:34 10/16/22 17:00 10/16/22 18:00 Temperature 38.1 C H Pulse Rate 117 H 103 H Respiratory Rate 22 H 22 H Blood Pressure Pulse Oximetry Oxygen Delivery Fraction of Inspired Oxygen 10/16/22 16:00 10/16/22 18:00 10/16/22 18:00 Temperature 37.7 C H Pulse Rate 113 H 108 H 108 H Respiratory Rate 22 H Blood Pressure 138/93 H
[2022-10-17 13:10] LABS: Glucose Point of Care 121 mg/dl (65-105)
--- NOTE | 2022-10-17 13:52 | WPDINTPN ---
Progress Note: A&P Assessment and Plan (1) Acute respiratory failure: Code(s): J96.00 - Acute respiratory failure, unspecified whether with hypoxia or hypercapnia Status: Acute Assessment and Plan: 10/12: Patient admitted with encephalopathy, was protecting airways, received 4 L of IV fluid bolus, once in the ICU she developed respiratory distress was intubated. She was also given racemic epinephrine for some questionable stridor -currently on CMV mode of ventilation, peep of 5 and 30% FiO2, wean FiO2 to maintain O2 sats greater than 92% -chest x-ray this morning: Endotracheal tube, NG tube, and right IJ line are in satisfactory positions. Small left pleural effusion is present. Right lung essentially clear.? Cardiomediastinal silhouette is stable. Bones and soft tissues are unremarkable -continue bronchodilators -ABGs reviewed -on Precedex for sedation, Maintain RASS of 0 to-1 -daily sedation vacation -patient still fully awake, was tried on SBT but did not tolerate due to tachycardia and tachypnea -switched ventilated to ASV mode of ventilation and is tolerating 10/12: CTA chest abdomen pelvis Questionable pyelonephritis versus motion artifact resulting in heterogeneous appearance of the kidneys. Correlate clinically and with urinalysis. Mild dependent atelectatic change, otherwise no significant abnormality seen in the lungs. No pulmonary embolus identified. (2) Septic shock: Code(s): A41.9 - Sepsis, unspecified organism; R65.21 - Severe sepsis with septic shock Status: Acute Assessment and Plan: Patient presented with encephalopathy, acute kidney injury, fevers of 104.0? F, elevated white blood cell, elevated procalcitonin and CRP -received adequate IV fluids in the ER and ICU on admission -OFF LEVOPHED -10/12: Blood cultures growing MSSA 2/2 BOTTLES -10/12: Urine culture NEGATIVE -10/13: Sputum cultures growing yeast -10/14: Repeat blood cultures are negative so far -continue oxacillin (10/15) , discontinue ceftriaxone, ampicillin and vancomycin -status post stress dose steroids 10/17: Continues to spike fever, added cefepime -10/17: Blood cultures (3) Bacteremia: Code(s): R78.81 - Bacteremia Status: Acute Assessment and Plan: Staph aureus bacteremia MSSA -antibiotics switched to oxacillin (10/15) -10/15 repeat blood cultures negative so far (4) Acute kidney injury: Code(s): N17.9 - Acute kidney failure, unspecified Status: Acute Assessment and Plan: Patient presented with acute kidney injury likely related to hypovolemia, rhabdomyolysis, bacteremia, sepsis/septic shock -adequately fluid-resuscitated -urine output has been adequate -creatinine normal -continue to monitor renal function, electrolytes and urine output -10/13: Renal ultrasound no hydronephrosis, minimal right perinephric fluid -urine lytes show prerenal picture, patient has been adequately fluid-resuscitated, -urine eosinophils are negative Hypernatremia: Sodium of 150, increase free water flushes Hypokalemia, will replace potassium (5) Rhabdomyolysis: Code(s): M62.82 - Rhabdomyolysis Status: Acute Assessment and Plan: Patient was found on the ground, unknown amount of down time as the has been conflicting information -CK levels were elevated, patient was adequately fluid-resuscitated -CK almost resolved (6) Non-ST elevation myocardial infarction (NSTEMI): Code(s): I21.4 - Non-ST elevation (NSTEMI) myocardial infarction Status: Acute Assessment and Plan: Troponins on admission were 9.650->10.700-->10.700->11.000-->5.460 -patient diagnosed with NSTEMI, -status post heparin infusion -continue aspirin 81 mg -continue atorvastatin -appreciate cardiology evaluation and recommendation -patient will require ischemic workup (7) Cardiomyopathy: Code(s): I42.9 - Cardiomyopathy, unspecified Status: Acute Assessment an
[2022-10-17] MEDS: CEFEPIME 2 GM/NS 50 ML 2 GM/50 ML BAG IVPB (15:31)
[2022-10-17] MEDS: dexmedeTOMIDine 400 MCG/100 ML 400 MCG/100 ML BAG 12.62 MCG IV CONT (16:12)
[2022-10-17 18:13] LABS: Chloride Rand Ur 28 mmol/L (32-290); Chloride/Creatinine Rand Ur 38 (38-318); Creatinine Random Urine 74 mg/dL (20-275)
[2022-10-17 23:23] LABS: Glucose Point of Care 159 mg/dl (65-105)
[2022-10-18] VITALS (38 sets, daily range): BP systolic 124–169; BP diastolic 78–102; PULSE 97–129; RESP 8–115; TEMP 37.3–38.8; O2SAT 92–100
[2022-10-18] MEDS: OXACILLIN SODIUM 2 GM in SODIUM CHLORIDE 0.9% IV 100 ML IVPB ×3 (00:33→08:43)
[2022-10-18] MEDS: dexmedeTOMIDine 400 MCG/100 ML 400 MCG/100 ML BAG 10.82 MCG IV CONT (00:34)
[2022-10-18] MEDS: CEFEPIME 2 GM/NS 50 ML 2 GM/50 ML BAG IVPB ×2 (01:21→14:11)
[2022-10-18] MEDS: LEVALBUTEROL NEB 1.25 MG/3 ML 0.63 MG INHALATION ×4 (02:13→20:30)
[2022-10-18] MEDS: IPRATROPIUM BR 0.02% INH SOLN 0.5 MG/2.5 ML VIAL INHALATION ×4 (02:13→20:30)
[2022-10-18] MEDS: ACETAMINOPHEN ELIXIR 325 MG/10.15 ML UDC 650 MG PO (02:15)
[2022-10-18] MEDS: CENTRAL LINE FLUSH 10 ML IV PUSH ×4 (04:49→23:05)
[2022-10-18 05:00] LABS: Basophils Absolute Auto 0.1 K/mm3 (0.0-0.1); Basophils Percent Auto 0.5 % (0.2-1.2); Eosinophils Absolute Auto 0.1 K/mm3 (0-0.3); Eosinophils Percent Auto 0.6 % (0-4.4); Hematocrit 25.7 % (37.0-47.0); Immature Granulocyte Percent A 8.8 % (0-0.5); Lymphocytes Percent Auto 9.5 % (18.3-44.2); Mean Corpuscular HGB Conc 31.1 g/dl (32-36); Mean Corpuscular Hemoglobin 30.7 pg (26-34); Mean Corpuscular Volume 98.5 fl (80-100); Mean Platelet Volume 11.4 fl (7.4-10.4); Monocytes Percent Auto 7.4 % (2.6-8.5); Neutrophils Percent Auto 73.2 % (45.5-73.1); Nucleated Red Blood Cells Perc 0.3 % (0.0-0.2); Platelet Count Result 402 k/mm3 (150-375); Red Blood Count 2.61 M/mm3 (4.2-5.4); Red Cell Distribution Width 17.9 % (11.5-14.5); White Blood Count 13.7 K/mm3 (4.5-10.0)
[2022-10-18 05:16] LABS: Base Excess ABG 4.8 mEq/l (+/-2.0); Fractional Inspired Oxygen 40 %; HCO3 ABG 28.4 mEq/l (22.0-26.0); Oxygen Content ABG 12.2 %vol (16.0-22.0); Oxyhemoglobin 93.7 % THb (90.0-100.0); PCO2 ABG 37.9 mmHg (35.0-45.0); PO2 ABG 74.6 mmHg (80.0-100.0); PO2 FiO2 Ratio Arterial Blood 1.87 %; Total Hemoglobin 9.2 g/dL (12.0-18.0); pH ABG 7.492 (7.350-7.450)
[2022-10-18 05:22] LABS: Device VENTILATOR; Modified Allen's Test Pass; Site Drawn LEFT RADIAL
[2022-10-18 05:23] LABS: Arterial Blood Gas PEEP 5 cmH2O; Arterial Blood Gas Vent Mode ASV
[2022-10-18 05:26] LABS: Lactic Acid Reflex 1.2 mmol/L (0.7-2.0)
[2022-10-18 05:32] LABS: Alanine Aminotransferase 95 U/L (6-35); Albumin Level 2.4 g/dL (3.5-5.1); Alkaline Phosphatase 123 U/L (38-126); Anion Gap 0 mmol/L (8-16); Aspartate Amino Transferase 79 U/L (14-36); Bilirubin,Total 0.4 mg/dL (0.2-1.3); Blood Urea Nitrogen 49 mg/dL (7-17); Calcium 8.2 mg/dL (8.4-10.2); Carbon Dioxide 32 mmol/L (22-30); Chloride 118 mmol/L (98-107); Creatine Kinase 546 U/L (30-135); Estimated CRCL calculation 52 ml/min; Estimated Glomerular Filt Rate 57; Glucose 172 mg/dL (65-110); Magnesium 2.2 mg/dL (1.6-2.3); Phosphorus 3.3 mg/dL (2.5-4.5); Potassium 3.6 mmol/L (3.4-5.0); Sodium 150 mmol/L (137-145); Triglycerides 153 mg/dL (<150)
[2022-10-18] MEDS: POTASSIUM CHLORIDE 20 MEQ PACKET (FOR LIQUID) 40 MEQ FEED TUBE (08:41)
[2022-10-18] MEDS: METOPROLOL TARTRATE 50 MG TAB PO ×2 (08:41→23:05)
[2022-10-18] MEDS: ENOXAPARIN 40 MG/0.4 ML SYRINGE SUB-Q (08:42)
[2022-10-18] MEDS: lisinopriL 20 MG TABLET PO (08:42)
[2022-10-18] MEDS: SPIRONOLACTONE 12.5 MG TABLET PO (08:42)
[2022-10-18] MEDS: MINERAL OIL/WHITE PETROLATUM OINTMENT 1 APPLIC EACH EYE (08:42)
[2022-10-18] MEDS: EMPAGLIFLOZIN 10 MG TABLET PO (08:42)
[2022-10-18] MEDS: ASPIRIN 81 MG CHEWABLE TABLET FEED TUBE (08:42)
[2022-10-18] MEDS: ATORVASTATIN 40 MG TABLET PO (08:42)
[2022-10-18] MEDS: PANTOPRAZOLE SODIUM IV 40 MG VIAL IV PUSH (08:43)
[2022-10-18] MEDS: dexmedeTOMIDine 400 MCG/100 ML 400 MCG/100 ML BAG 7.21 MCG IV CONT (11:02)
[2022-10-18 11:49] LABS: Base Excess ABG 6.3 mEq/l (+/-2.0); Carboxyhemoglobin 0.2 % THb (0-2.0); Fractional Inspired Oxygen 30 %; HCO3 ABG 30.2 mEq/l (22.0-26.0); Methemoglobin ABG 0.2 %THb (0-1.5); Oxygen Saturation ABG 96.1 % (95.0-100.0); Oxyhemoglobin 93.4 % THb (90.0-100.0); PCO2 ABG 40.4 mmHg (35.0-45.0); PO2 ABG 75.4 mmHg (80.0-100.0); PO2 FiO2 Ratio Arterial Blood 2.51 %; Reduced Hemoglobin 6.2 %THb (0-5.0); Total Hemoglobin 9.8 g/dL (12.0-18.0); pH ABG 7.491 (7.350-7.450)
[2022-10-18 11:50] LABS: Device VENTILATOR; Modified Allen's Test Pass; Site Drawn LEFT RADIAL
[2022-10-18 11:51] LABS: Arterial Blood Gas PEEP 5 cmH2O; Arterial Blood Gas Pressure Support 8 cmH2O; Arterial Blood Gas Vent Mode SPONTANEOUS
--- NOTE | 2022-10-18 11:59 | WPDINTPN ---
Progress Note: A&P Assessment and Plan (1) Acute respiratory failure: Code(s): J96.00 - Acute respiratory failure, unspecified whether with hypoxia or hypercapnia Status: Acute Assessment and Plan: 10/12: Patient admitted with encephalopathy, was protecting airways, received 4 L of IV fluid bolus, once in the ICU she developed respiratory distress was intubated. She was also given racemic epinephrine for some questionable stridor -currently on CMV mode of ventilation, peep of 5 and 30% FiO2, wean FiO2 to maintain O2 sats greater than 92% -chest x-ray this morning: Left lower lobe infiltrate or atelectasis and small left pleural effusion -continue bronchodilators -ABGs reviewed -on Precedex for sedation - 10/18: patient more awake this morning on Precedex infusion, will place on SBT and evaluate for extubation 10/12: CTA chest abdomen pelvis Questionable pyelonephritis versus motion artifact resulting in heterogeneous appearance of the kidneys. Correlate clinically and with urinalysis. Mild dependent atelectatic change, otherwise no significant abnormality seen in the lungs. No pulmonary embolus identified. (2) Septic shock: Code(s): A41.9 - Sepsis, unspecified organism; R65.21 - Severe sepsis with septic shock Status: Acute Assessment and Plan: Patient presented with encephalopathy, acute kidney injury, fevers of 104.0? F, elevated white blood cell, elevated procalcitonin and CRP -received adequate IV fluids in the ER and ICU on admission -OFF LEVOPHED -10/12: Blood cultures growing MSSA 2/2 BOTTLES -10/12: Urine culture NEGATIVE -10/13: Sputum cultures growing yeast -10/14: Repeat blood cultures are negative so far -status post stress dose steroids 10/17 and 10/18: Continues to spike fever, -10/18: Repeat blood cultures growing Gram-positive cocci in clusters 2/2 bottles -will discontinue oxacillin and restart vancomycin (10/18), already on cefepime(10/17) -patient still spiking fevers and bacteremic, will discuss with Cardiology regarding COTY (3) Bacteremia: Code(s): R78.81 - Bacteremia Status: Acute Assessment and Plan: Treatment as above (4) Acute kidney injury: Code(s): N17.9 - Acute kidney failure, unspecified Status: Acute Assessment and Plan: Patient presented with acute kidney injury likely related to hypovolemia, rhabdomyolysis, bacteremia, sepsis/septic shock -adequately fluid-resuscitated -urine output has been adequate -creatinine normal -continue to monitor renal function, electrolytes and urine output -10/13: Renal ultrasound no hydronephrosis, minimal right perinephric fluid -urine lytes show prerenal picture, patient has been adequately fluid-resuscitated, -urine eosinophils are negative Hypernatremia: Sodium of 150, increase free water flushes Hypokalemia, will replace potassium (5) Rhabdomyolysis: Code(s): M62.82 - Rhabdomyolysis Status: Acute Assessment and Plan: Patient was found on the ground, unknown amount of down time as the has been conflicting information -CK levels were elevated, patient was adequately fluid-resuscitated -CK levels were trending down but with patient's fevers and bacteremia mildly elevated again, will continue to monitor (6) Non-ST elevation myocardial infarction (NSTEMI): Code(s): I21.4 - Non-ST elevation (NSTEMI) myocardial infarction Status: Acute Assessment and Plan: Troponins on admission were 9.650->10.700-->10.700->11.000-->5.460 -patient diagnosed with NSTEMI, -status post heparin infusion -continue aspirin 81 mg -continue atorvastatin -appreciate cardiology evaluation and recommendation -patient will require ischemic workup (7) Cardiomyopathy: Code(s): I42.9 - Cardiomyopathy, unspecified Status: Acute Assessment and Plan: 10/13/2022 echocardiogram: Showed EF 30-35%, [id number] mitral valve regurg RV systol
[2022-10-18 16:05] LABS: Glucose Point of Care 126 mg/dl (65-105)
[2022-10-18] MEDS: ACETAMINOPHEN 650 MG SUPPOSITORY RECTAL (16:18)
[2022-10-18] MEDS: METOPROLOL TARTRATE INJ 5 MG/5 ML VIAL IV PUSH (16:19)
[2022-10-18 17:22] LABS: Glucose Point of Care 113 mg/dl (65-105)
[2022-10-18 22:06] LABS: Glucose Point of Care 101 mg/dl (65-105)
[2022-10-19] VITALS (35 sets, daily range): BP systolic 128–162; BP diastolic 80–98; PULSE 96–127; RESP 11–29; TEMP 37.4–38.3; O2SAT 94–99
[2022-10-19 00:30] LABS: Glucose Point of Care 91 mg/dl (65-105)
[2022-10-19] MEDS: LEVALBUTEROL NEB 1.25 MG/3 ML 0.63 MG INHALATION ×2 (02:00→07:29)
[2022-10-19] MEDS: IPRATROPIUM BR 0.02% INH SOLN 0.5 MG/2.5 ML VIAL INHALATION ×2 (02:00→07:25)
[2022-10-19] MEDS: CEFEPIME 2 GM/NS 50 ML 2 GM/50 ML BAG IVPB ×2 (02:09→14:32)
[2022-10-19] MEDS: ACETAMINOPHEN 650 MG SUPPOSITORY RECTAL (02:15)
[2022-10-19] MEDS: hydrALAZINE HCL 20 MG/ML VIAL 10 MG IV PUSH (04:16)
[2022-10-19] MEDS: CENTRAL LINE FLUSH 10 ML IV PUSH ×3 (04:17→21:03)
[2022-10-19] MEDS: CENTRAL LINE FLUSH 20 ML IV PUSH (04:17)
[2022-10-19 04:53] LABS: Alanine Aminotransferase 96 U/L (6-35); Albumin Level 2.8 g/dL (3.5-5.1); Alkaline Phosphatase 108 U/L (38-126); Anion Gap 3 mmol/L (8-16); Aspartate Amino Transferase 110 U/L (14-36); Bilirubin,Total 0.5 mg/dL (0.2-1.3); Blood Urea Nitrogen 42 mg/dL (7-17); Calcium 8.5 mg/dL (8.4-10.2); Carbon Dioxide 34 mmol/L (22-30); Chloride 119 mmol/L (98-107); Estimated CRCL calculation 48 ml/min; Estimated Glomerular Filt Rate 51; Glucose 107 mg/dL (65-110); Magnesium 2.3 mg/dL (1.6-2.3); Phosphorus 4.7 mg/dL (2.5-4.5); Potassium 2.9 mmol/L (3.4-5.0); Sodium 156 mmol/L (137-145)
[2022-10-19 05:04] LABS: CRP 14.9 mg/dL (<1.0)
[2022-10-19 05:32] LABS: Basophils Absolute Auto 0.1 K/mm3 (0.0-0.1); Basophils Percent Auto 0.4 % (0.2-1.2); Eosinophils Absolute Auto 0.1 K/mm3 (0-0.3); Eosinophils Percent Auto 0.7 % (0-4.4); Hematocrit 27.5 % (37.0-47.0); Hemoglobin 8.6 g/dL (12.0-15.0); Immature Granulocyte Absolute 0.96 K/mm3 (0.00-0.031); Immature Granulocyte Percent A 6.6 % (0-0.5); Lymphocytes Absolute Auto 1.41 K/mm3 (0.9-3.2); Lymphocytes Percent Auto 9.6 % (18.3-44.2); Mean Corpuscular HGB Conc 31.3 g/dl (32-36); Mean Corpuscular Hemoglobin 30.7 pg (26-34); Mean Corpuscular Volume 98.2 fl (80-100); Mean Platelet Volume 11.7 fl (7.4-10.4); Monocytes Absolute Auto 1.1 K/mm3 (0.1-0.6); Monocytes Percent Auto 7.4 % (2.6-8.5); Neutrophils Percent Auto 75.3 % (45.5-73.1); Nucleated Red Blood Cells Absolute Auto 0.1 K/mm3 (0.0-0.012); Nucleated Red Blood Cells Perc 0.7 % (0.0-0.2); Platelet Count Result 507 k/mm3 (150-375); White Blood Count 14.6 K/mm3 (4.5-10.0)
[2022-10-19] MEDS: ASPIRIN 81 MG CHEWABLE TABLET FEED TUBE (08:26)
[2022-10-19] MEDS: EMPAGLIFLOZIN 10 MG TABLET PO (08:26)
[2022-10-19] MEDS: ATORVASTATIN 40 MG TABLET PO (08:26)
[2022-10-19] MEDS: ENOXAPARIN 40 MG/0.4 ML SYRINGE SUB-Q (08:27)
[2022-10-19] MEDS: METOPROLOL TARTRATE 50 MG TAB PO ×2 (08:27→21:03)
[2022-10-19] MEDS: PANTOPRAZOLE SODIUM IV 40 MG VIAL IV PUSH (08:27)
[2022-10-19] MEDS: lisinopriL 20 MG TABLET PO (08:27)
[2022-10-19] MEDS: POTASSIUM CHLORIDE INJ 40 MEQ in DEXTROSE 5% IN WATER 500 ML 130 MEQ IVPB ×2 (08:57→13:46)
--- NOTE | 2022-10-19 09:47 | PCPTNOTE ---
Pt has active bedrest orders at this time. Will follow
--- NOTE | 2022-10-19 10:11 | PM.IMPN ---
Progress Note: A&P Assessment and Plan (1) Acute respiratory failure: Code(s): J96.00 - Acute respiratory failure, unspecified whether with hypoxia or hypercapnia Status: Acute Assessment and Plan: 10/12: Patient admitted with encephalopathy, was protecting airways, received 4 L of IV fluid bolus, once in the ICU she developed respiratory distress was intubated. She was also given racemic epinephrine for some questionable stridor -currently on CMV mode of ventilation, peep of 5 and 30% FiO2, wean FiO2 to maintain O2 sats greater than 92% -chest x-ray this morning: Endotracheal tube, NG tube, and right IJ line are unchanged. Minimal left pleural effusion is present. Right lung clear.? Cardiomediastinal silhouette is stable. Bones and soft tissues are unremarkable.. -continue bronchodilators -ABGs reviewed -will switch sedation to Precedex infusion discontinue propofol and fentanyl. Maintain RASS of 0 to-1 -daily sedation vacation -once patient is more awake will place her on spontaneous breathing 10/12: CTA chest abdomen pelvis Questionable pyelonephritis versus motion artifact resulting in heterogeneous appearance of the kidneys. Correlate clinically and with urinalysis. Mild dependent atelectatic change, otherwise no significant abnormality seen in the lungs. No pulmonary embolus identified. (2) Septic shock: Code(s): A41.9 - Sepsis, unspecified organism; R65.21 - Severe sepsis with septic shock Status: Acute Assessment and Plan: Patient presented with encephalopathy, acute kidney injury, fevers of 104.0? F, elevated white blood cell, elevated procalcitonin and CRP -received adequate IV fluids in the ER and ICU on admission -OFF LEVOPHED -10/12: Blood cultures growing MSSA 2/2 BOTTLES -10/12: Urine culture NEGATIVE -10/13: Sputum cultures growing yeast -10/14: Repeat blood cultures are negative so far -continue oxacillin (10/15) , discontinue ceftriaxone, ampicillin and vancomycin -status post stress dose steroids -10/18:? Repeat blood cultures growing Gram-positive cocci in clusters 2/2 bottles. oxacillin was discontinued and vancomycin was restarted (10/18), already on cefepime(10/17) -patient continues to have fever.? Consult cardiology for COTY.? Repeat blood cultures ordered.? Remove Pizano catheter -repeat CT scan -patient still spiking fevers and bacteremic, will discuss with Cardiology regarding COTY (3) Bacteremia: Code(s): R78.81 - Bacteremia Status: Acute Assessment and Plan: Staph aureus bacteremia MSSA -antibiotics switched to oxacillin (10/15) -10/15 repeat blood cultures negative so far (4) Acute kidney injury: Code(s): N17.9 - Acute kidney failure, unspecified Status: Acute Assessment and Plan: Patient presented with acute kidney injury likely related to hypovolemia, rhabdomyolysis, bacteremia, sepsis/septic shock -adequately fluid-resuscitated -urine output has been adequate -creatinine normal -continue to monitor renal function, electrolytes and urine output -10/13: Renal ultrasound no hydronephrosis, minimal right perinephric fluid -urine lytes show prerenal picture, patient has been adequately fluid-resuscitated, -urine eosinophils are negative Hypernatremia: Sodium of 151, will increase free water flushes Hypokalemia, will replace potassium (5) Rhabdomyolysis: Code(s): M62.82 - Rhabdomyolysis Status: Acute Assessment and Plan: Patient was found on the ground, unknown amount of down time as the has been conflicting information -CK levels were elevated, patient was adequately fluid-resuscitated -CK treat levels trending down well (6) Non-ST elevation myocardial infarction (NSTEMI): Code(s): I21.4 - Non-ST elevation (NSTEMI) myocardial infarction Status: Acute Assessment and Plan: Troponins on admission were 9.650->10.700-->10.700->11.000-->5.460 -patient diagnosed with NSTEMI, -status po
--- NOTE | 2022-10-19 10:15 | WPDINTPN ---
Progress Note: A&P Assessment and Plan (1) Acute respiratory failure: Code(s): J96.00 - Acute respiratory failure, unspecified whether with hypoxia or hypercapnia Status: Acute Assessment and Plan: 10/12: Patient admitted with encephalopathy, was not protecting airways, received 4 L of IV fluid bolus, once in the ICU she developed respiratory distress was intubated. She was also given racemic epinephrine for some questionable stridor 10/18: Extubated Incentive spirometry -continue bronchodilators but change to p.r.n. 10/12: CTA chest abdomen pelvis Questionable pyelonephritis versus motion artifact resulting in heterogeneous appearance of the kidneys. Correlate clinically and with urinalysis. Mild dependent atelectatic change, otherwise no significant abnormality seen in the lungs. No pulmonary embolus identified. (2) Septic shock: Code(s): A41.9 - Sepsis, unspecified organism; R65.21 - Severe sepsis with septic shock Status: Acute Assessment and Plan: Patient presented with encephalopathy, acute kidney injury, fevers of 104.0? F, elevated white blood cell, elevated procalcitonin and CRP -received adequate IV fluids in the ER and ICU on admission -OFF LEVOPHED -10/12: Blood cultures growing MSSA 2/2 BOTTLES -10/12: Urine culture NEGATIVE -10/13: Sputum cultures growing yeast -10/14: Repeat blood cultures are negative so far -status post stress dose steroids 10/17 and 10/18: Continues to spike fever, -10/18: Repeat blood cultures growing Gram-positive cocci in clusters 2/2 bottles. oxacillin was discontinued and vancomycin was restarted (10/18), already on cefepime(10/17) -patient continues to have fever. Consult cardiology for COTY. Repeat blood cultures ordered. Remove Pizano catheter -repeat CT scan -patient still spiking fevers and bacteremic, will discuss with Cardiology regarding COTY (3) Bacteremia: Code(s): R78.81 - Bacteremia Status: Acute Assessment and Plan: Treatment as above (4) Acute kidney injury: Code(s): N17.9 - Acute kidney failure, unspecified Status: Acute Assessment and Plan: Patient presented with acute kidney injury likely related to hypovolemia, rhabdomyolysis, bacteremia, sepsis/septic shock -adequately fluid-resuscitated -urine output has been adequate -creatinine normal -continue to monitor renal function, electrolytes and urine output -10/13: Renal ultrasound no hydronephrosis, minimal right perinephric fluid -urine lytes show prerenal picture, patient has been adequately fluid-resuscitated, -urine eosinophils are negative Hypernatremia: Sodium of 156, will give D5 water today and recheck BMP later in the evening Hypokalemia - will replace potassium (5) Rhabdomyolysis: Code(s): M62.82 - Rhabdomyolysis Status: Acute Assessment and Plan: Patient was found on the ground, unknown amount of down time as the has been conflicting information -CK levels were elevated, patient was adequately fluid-resuscitated -CK levels were trending down but with patient's fevers and bacteremia mildly elevated again, will continue to monitor (6) Non-ST elevation myocardial infarction (NSTEMI): Code(s): I21.4 - Non-ST elevation (NSTEMI) myocardial infarction Status: Acute Assessment and Plan: Troponins on admission were 9.650->10.700-->10.700->11.000-->5.460 -patient diagnosed with NSTEMI, -status post heparin infusion -continue aspirin 81 mg -continue atorvastatin -echo reviewed -cardiology following -patient will require ischemic workup (7) Cardiomyopathy: Code(s): I42.9 - Cardiomyopathy, unspecified Status: Acute Assessment and Plan: 10/13/2022 echocardiogram: Showed EF 30-35%, [id number] mitral valve regurg RV systolic function is reduced New onset cardiomyopathy could be related to NSTEMI, septic shock -will require ischemic workup eventually -cardiology fo
--- NOTE | 2022-10-19 10:40 | PCFNICU ---
ICU Rounding Note: Pt current nutrition is NPO awaiting swallow study. Nutrition recommendation: Appropriate supplements when diet is advanced. Last recorded weight is 70.1 kg. Bowel Motility: +1 BM 10/17/22. FMS discontinued. Labs Reviewed: Hgb 8.6, Hct 27.5, Alb 2.8, Na 156, K+ 2.9, GFR 51, BUN 42, Cre 1.1 Meds Noted: Vancomycin, Protonix, spironolactone, lovenox Skin: Stage II to coccyx. Additional Notes: Pt was extubated, awaiting swallow study. Sedation is off. No pressors. Remains weak. Monitoring for appropriate supplements to recommend after swallow study. Following daily in ICU rounds. Will monitor weight, labs, tube feeding tolerance, skin every Wednesday and Wednesday. .
--- NOTE | 2022-10-19 11:49 | PCSTNOTE ---
Attempted bedside swallowing evaluation. Patient out of room. Will try again later, most likely tomorrow.
--- NOTE | 2022-10-19 12:08 | PM.PNCARD ---
Progress Note: A&P Assessment and Plan (1) Cardiomyopathy: Code(s): I42.9 - Cardiomyopathy, unspecified Status: Acute Assessment and Plan: Echocardiogram 10/13 showing LVEF 30-35%, mild-moderate MR. New diagnosis of reduced LVEF. In the setting of septic shock, bacteremia, acute respiratory failure requiring mechanical ventilation, TIKA, rhabdo. Will eventually need some sort of ischemic evaluation depending on her clinical course / recovery from her acute issues. Off pressors and TIKA resolved. For GDMT she is on lisinopril and metoprolol, jardiance, and spironolactone. Spironolactone on hold because of hypernatremia. (2) Non-ST elevation myocardial infarction (NSTEMI): Code(s): I21.4 - Non-ST elevation (NSTEMI) myocardial infarction Status: Acute Assessment and Plan: Initial troponin of 9.650 with peak troponin at 11. Initial EKG showing sinus tachycardia without any ischemic changes. Repeat EKG read as possible atrial flutter / atrial tachycardia, but I think it's more sinus tachycardia (no evidence of flutter waves on tele when her heart rate slows down). The third EKG clearly shows sinus tachycardia. Elevated troponins in the setting of septic shock, bacteremia, acute respiratory failure requiring mechanical ventilation, TIKA, rhabdo. The elevated troponins could be from demand ischemia due to the above, however, given the degree of troponin elevation, I cannot rule out an acute coronary syndrome. Recommendations: -ASA 81mg once daily -High intensity statin -Completed Heparin drip per ACS protocol for 48 hours. -Echocardiogram 10/13 showing LVEF 30-35%, mild-moderate MR. Will eventually need some sort of ischemic evaluation depending on her clinical course / recovery from her acute issues. (3) Septic shock: Code(s): A41.9 - Sepsis, unspecified organism; R65.21 - Severe sepsis with septic shock Status: Acute Assessment and Plan: She is off pressors at this point. Staph aureus bacteremia. COTY later this afternoon (4) Acute respiratory failure: Code(s): J96.00 - Acute respiratory failure, unspecified whether with hypoxia or hypercapnia Status: Acute Assessment and Plan: Extubated (5) Rhabdomyolysis: Code(s): M62.82 - Rhabdomyolysis Status: Acute Assessment and Plan: Peak CK level of 3032 (6) Bacteremia: Code(s): R78.81 - Bacteremia Status: Acute Assessment and Plan: Blood cultures growing Staph aureus. COTY today. Subjective Date/time seen: 10/19/22 12:08 Interval history: Reason for visit: Elevated troponins, cardiomyopathy HPI: We are consulted for elevated troponins. Patient is currently intubated, therefore, unable to obtain any history from the patient. No family at bedside. Therefore, all history obtained from the chart and the medical team. This is a 62-year-old female who is admitted with septic shock, acute respiratory failure requiring intubation and mechanical ventilation, bacteremia, rhabdomyolysis, acute kidney injury. She has a history of anxiety, arthritis, depression, hypertension, hyperlipidemia who presented to [place] [facility] 10/12/2022 with altered mental status. EMS was sent to do a wellness check on the patient as she had not gone to work. Patient found on the ground unresponsive and mottled. Initial labs notable for Cr 1.5, elevated AST/ALT, elevated CK, initial troponin of 9.650. UDS negative. CTA C/A/P with questionable pyelonephritis. Patient intubated in the ICU for respiratory distress.? Date of service 10/14: Remains intubated. Still on pressors. Tele stable. Date of service 10/15: Remains intubated. Off of Levophed. Sinus tach on tele. Date of service 10/16/22: Remains intubated, off pressors and sedation. Does open eyes not not following commands Date of service 10/19/2022: Extubated and alert but unable to verbally respond. She does nod to yes or no questions. Review of Systems R
[2022-10-19 12:31] LABS: Glucose Point of Care 111 mg/dl (65-105)
[2022-10-19] MEDS: VANCOMYCIN 1,250 MG/NS 250 ML 1,250 MG/250 ML BAG 166.67 MG IVPB (12:42)
--- NOTE | 2022-10-19 14:29 | WPDMODSED ---
Moderate Sedation Note-Pt Data Patient Data Diagnosis: Persistent Staph aureus bacteremia Present Complaint: No complaint Procedure to be performed/Plan: Transesophageal echocardiogram Allergies Allergy/AdvReac Type Severity Reaction Status Date / Time codeine AdvReac Mild Vomiting Verified 10/13/22 07:43 Home Medications Medication Instructions Recorded Confirmed Type cyclobenzaprine 10 mg tablet 10 mg PO TID PRN muscle spasm #20 10/08/22 10/12/22 Rx tabs lisinopril 20 mg tablet 20 mg PO DAILY 10/08/22 10/12/22 History methylprednisolone 4 mg tablets in See Rx Instructions PO .COMPLEX 10/08/22 10/12/22 Rx a dose pack (Medrol (Sanya)) #21 ea simvastatin 40 mg tablet 40 mg PO DAILY 10/08/22 10/12/22 History Current Medications: Active Medications Acetaminophen (Acetaminophen 650 Mg Suppository) 650 mg RECTAL Q6H PRN PRN Reason: Mild Pain (1-3) or Fever Last Admin: 10/19/22 02:15 Dose: 650 mg Aspirin (Aspirin 81 Mg Chewable Tablet) 81 mg FEED TUBE DAILY@0800 [facility] Last Admin: 10/19/22 08:26 Dose: 81 mg Atorvastatin Calcium (Atorvastatin 40 Mg Tablet) 40 mg PO DAILY [facility] Last Admin: 10/19/22 08:26 Dose: 40 mg Dextrose (Dextrose 50% 25 Gm/50 Ml Syringe) 12.5 gm IV PUSH PRN PRN; Protocol PRN Reason: Hypoglycemia Empagliflozin (Empagliflozin 10 Mg Tablet) 10 mg PO DAILY [facility] Last Admin: 10/19/22 08:26 Dose: 10 mg Enoxaparin Sodium (Enoxaparin 40 Mg/0.4 Ml Syringe) 40 mg SUB-Q DAILY [facility] Last Admin: 10/19/22 08:27 Dose: 40 mg Glucagon (Glucagon For Inj 1 Mg Vial) 1 mg IM PRN PRN; Protocol PRN Reason: Hypoglycemia Glucose (Glucose Oral Gel 15 Gm Of Glucse In 37.5 Gm Tube) 15 gm PO PRN PRN; Protocol PRN Reason: Hypoglycemia Hydralazine HCl (Hydralazine Hcl 20 Mg/Ml Vial) 10 mg IV PUSH Q4H PRN PRN Reason: Blood Pressure - High Last Admin: 10/19/22 04:16 Dose: 10 mg Norepinephrine Bitartrate (Levophed 8 Mg/D5w 250 Ml) 8 mg in 250 mls @ 0 mls/hr IV CONT .Q0M [facility]; Protocol Last Admin: 10/15/22 17:31 Dose: Not Given Dextrose (Dextrose 5% 1,000 Ml) 1,000 mls @ 100 mls/hr IVPB PRN PRN; Protocol PRN Reason: Hypoglycemia Cefepime HCl (Maxipime 2 Gm/Ns 50 Ml) 2 gm in 50 mls @ 100 mls/hr IVPB Q12H [facility] Last Infusion: 10/19/22 03:09 Dose: Infused Vancomycin HCl (Vancomycin 1,250 Mg/Ns 250 Ml) 1,250 mg in 250 mls @ 166.667 mls/hr IVPB Q24H [facility] Last Admin: 10/19/22 12:42 Dose: 166.67 mls/hr Potassium Chloride 40 meq/ (Dextrose) 520 mls @ 130 mls/hr IVPB Q4H [facility] Stop: 10/19/22 16:44 Last Admin: 10/19/22 13:46 Dose: 130 mls/hr Insulin Aspart (Insulin Aspart (*Bkc) 100 Units/Ml) 3 - 6 units SUB-Q Q6HR [facility]; Protocol Last Admin: 10/19/22 12:30 Dose: Not Given Ipratropium [place] (Ipratropium Br 0.02% Inh Soln 0.5 Mg/2.5 Ml Vial) 0.5 mg INHALATION Q6HRT PRN PRN Reason: wheezing Levalbuterol HCl (Levalbuterol Neb 1.25 Mg/3 Ml) 0.63 mg INHALATION Q6HRT PRN PRN Reason: Wheezing Lisinopril (Lisinopril 20 Mg Tablet) 20 mg PO DAILY [facility] Last Admin: 10/19/22 08:27 Dose: 20 mg Metoprolol Tartrate (Metoprolol Tartrate 50 Mg Tab) 50 mg PO Q12HR [facility] Last Admin: 10/19/22 08:27 Dose: 50 mg Metoprolol Tartrate (Metoprolol Tartrate Inj 5 Mg/5 Ml Vial) 5 mg IV PUSH Q6H PRN PRN Reason: Tachycardia Last Admin: 10/18/22 16:19 Dose: 5 mg Multi-Ingred Cream/Lotion/Oil/Oint (Mineral Oil/White Petrolatum Ointment) 1 applic EACH EYE Q12HR [facility] Last Admin: 10/19/22 08:58 Dose: Not Given Pantoprazole Sodium (Pantoprazole Sodium Iv 40 Mg Vial) 40 mg IV PUSH QAM [facility] Last Admin: 10/19/22 08:27 Dose: 40 mg Sodium Chloride (Central Line Flush) 20 ml IV PUSH PRN PRN PRN Reason: after blood draws Last Admin: 10/19/22 04:17 Dose: 20 ml Sodium Chloride (Central Line Flush) 10 ml IV PUSH DAILY@1800 [facility] Last Admin: 10/18/22 17:24 Dose: 10 ml Sodium Chloride (Central Line Flush) 10 ml IV PUSH Q8HR [facility] Last Admin: 10/19/22 04:17 Dose: 10 ml Spironolactone (Spironolacton
--- NOTE | 2022-10-19 14:30 | P.PCNCC_ITS ---
Cardiac Cath Procedure Note Date of procedure:: 10/19/22 Performing physician:: Emanuel Mallory MD Indication:: Persistent Staph aureus bacteremia Brief clinical history:: This is a 62-year-old woman who unfortunately was hospitalized over a week ago after being found down at her residence. She had evidence of rhabdomyolysis and while intubated earlier during this hospitalization was found to have LV syst olic dysfunction. She also was found to have Staph aureus in her blood cultures. Repeat blood cultures have demonstrated persistent Staph aureus bacteremia and in this setting COTY has been requested Procedure Procedure performed:: Transesophageal echocardiogram Sedation/Medication given:: Versed 2 mg IV push Estimated blood loss:: None Procedure note:: Patient was hospitalized already in the ICU 8. She was placed in the supine position or pharyngeal benzocaine was sprayed for topical anesthesia. Following this bite block was placed. She was then given 1 dose of midazolam 2 mg IV push which provided sufficient in very good sedation. Transesophageal echo probe was easily placed into the oropharynx and advanced into the esophagus. Multiplane COTY imaging was carried out without complication. Findings:: The left atrium is modestly enlarged the mitral valve leaflets look unremarkable structurally. There is a small vegetation associated with the posterior mitral valve leaflet with typical mobility seen on the atrial side of the leaflet. There are no disrupted chordal elements. There is a very small amount of MR which appears to be a centrally located and directed jet. Size of vegetation is about 0.5 cm. The left ventricle appears to be nondilated at this point appears to contract relatively well the ejection fraction is visually estimated to be 45-50%. The aortic valve is trileaflet and appears unremarkable. There is no aortic regurgitation. Aortic root dimension looks normal. The right-sided julio bers are unremarkable in appearance the tricuspid and pulmonic valves appear normal there is no vegetative material associated with these valves. There is no pericardial fluid. Conclusion:: Transesophageal echocardiogram done because of persistent staph bacteremia demonstrating evidence of infectious vegetation on the posterior mitral valve leaflet. Vegetation is relatively small and there is a very small amount of MR at this point no evidence of structural disruption of the valve. Emanuel Mallory MD [facility]
--- NOTE | 2022-10-19 14:35 | ECHO_ITS ---
This document was recreated with the correct Report Title on 05/19/23.? The original document was signed by Emanuel Mallory MD 10/19/22 2561. Date of procedure:: 10/19/22 Performing physician:: Emanuel Mallory MD Indication:: Persistent Staph aureus bacteremia Brief clinical history:: This is a 62-year-old woman who unfortunately was hospitalized over a week ago after being found down at her residence. She had evidence of rhabdomyolysis and while intubated earlier during this hospitalization was found to have LV systolic dysfunction. She also was found to have Staph aureus in her blood cultures. Repeat blood cultures have demonstrated persistent Staph aureus bacteremia and in this setting COTY has been requested Procedure Procedure performed:: Transesophageal echocardiogram Sedation/Medication given:: Versed 2 mg IV push Estimated blood loss:: None Procedure note:: Patient was hospitalized already in the ICU 8. She was placed in the supine position or pharyngeal benzocaine was sprayed for topical anesthesia. Following this bite block was placed. She was then given 1 dose of midazolam 2 mg IV push which provided sufficient in very good sedation. Transesophageal echo probe was easily placed into the oropharynx and advanced into the esophagus. Multiplane CTOY imaging was carried out without complication. Findings:: The left atrium is modestly enlarged the mitral valve leaflets look unremarkable structurally. There is a small vegetation associated with the posterior mitral valve leaflet with typical mobility seen on the atrial side of the leaflet. There are no disrupted chordal elements. There is a very small amount of MR which appears to be a centrally located and directed jet. Size of vegetation is about 0.5 cm. The left ventricle appears to be nondilated at this point appears to contract relatively well the ejection fraction is visually estimated to be 45-50%. The aortic valve is trileaflet and appears unremarkable. There is no aortic regurgitation. Aortic root dimension looks normal. The right-sided chambers are unremarkable in appearance the tricuspid and pulmonic valves appear normal there is no vegetative material associated with these valves. There is no pericardial fluid. Conclusion:: Transesophageal echocardiogram done because of persistent staph bacteremia demonstrating evidence of infectious vegetation on the posterior mitral valve leaflet. Vegetation is relatively small and there is a very small amount of MR at this point no evidence of structural disruption of the valve. Emanuel Mallory MD [facility] This report may have been done utilizing a voice recognition system. Attempts have been made to correct errors. However, there may be uncorrected grammatical, spelling, and recognition errors present. Report Initialized date/time: Emanuel Mallory MD 10/19/221434 Electronically signed by: Emanuel Mallory MD 10/19/221434 [facility]
[2022-10-19 18:12] LABS: Glucose Point of Care 123 mg/dl (65-105)
[2022-10-19 18:43] LABS: Anion Gap 3 mmol/L (8-16); Blood Urea Nitrogen 41 mg/dL (7-17); Calcium 8.1 mg/dL (8.4-10.2); Carbon Dioxide 30 mmol/L (22-30); Chloride 120 mmol/L (98-107); Estimated CRCL calculation 50 ml/min; Estimated Glomerular Filt Rate > 60; Glucose 119 mg/dL (65-110); Sodium 153 mmol/L (137-145)
[2022-10-19] MEDS: DEXTROSE 5% 1,000 ML 1,000 ML 75 ML IV CONT (21:02)
[2022-10-19] MEDS: MINERAL OIL/WHITE PETROLATUM OINTMENT 1 APPLIC EACH EYE (21:03)
[2022-10-19 23:52] LABS: Glucose Point of Care 129 mg/dl (65-105)
[2022-10-20] VITALS (21 sets, daily range): BP systolic 115–164; BP diastolic 71–101; PULSE 92–123; RESP 11–20; TEMP 37.6–38.6; O2SAT 94–100; BMI 11.0
[2022-10-20] MEDS: CEFEPIME 2 GM/NS 50 ML 2 GM/50 ML BAG IVPB (02:27)
[2022-10-20 05:58] LABS: Hematocrit 27.1 % (37.0-47.0); Mean Corpuscular HGB Conc 29.5 g/dl (32-36); Mean Corpuscular Hemoglobin 30.5 pg (26-34); Mean Corpuscular Volume 103.4 fl (80-100); Mean Platelet Volume 11.4 fl (7.4-10.4); Platelet Count Result 509 k/mm3 (150-375); Red Blood Count 2.62 M/mm3 (4.2-5.4); Red Cell Distribution Width 18.3 % (11.5-14.5); White Blood Count 13.8 K/mm3 (4.5-10.0)
[2022-10-20 06:10] LABS: Alanine Aminotransferase 100 U/L (6-35); Albumin Level 2.8 g/dL (3.5-5.1); Alkaline Phosphatase 83 U/L (38-126); Anion Gap 4 mmol/L (8-16); Aspartate Amino Transferase 124 U/L (14-36); Bilirubin,Total 0.4 mg/dL (0.2-1.3); Blood Urea Nitrogen 37 mg/dL (7-17); Calcium 8.1 mg/dL (8.4-10.2); Carbon Dioxide 35 mmol/L (22-30); Chloride 119 mmol/L (98-107); Creatine Kinase 1379 U/L (30-135); Estimated CRCL calculation 42 ml/min; Estimated Glomerular Filt Rate 51; Glucose 122 mg/dL (65-110); Magnesium 2.6 mg/dL (1.6-2.3); Potassium 3.4 mmol/L (3.4-5.0); Sodium 158 mmol/L (137-145)
[2022-10-20] MEDS: CENTRAL LINE FLUSH 10 ML IV PUSH ×3 (06:35→21:25)
--- NOTE | 2022-10-20 08:18 | PCOTNOTE ---
Pt. continues to have active bed rest orders. Cannot be seen by therapy services until pt. appropriate for activity. Following.
[2022-10-20] MEDS: ENOXAPARIN 40 MG/0.4 ML SYRINGE SUB-Q (08:44)
[2022-10-20] MEDS: ATORVASTATIN 40 MG TABLET PO (08:44)
[2022-10-20] MEDS: ASPIRIN 81 MG CHEWABLE TABLET FEED TUBE (08:44)
[2022-10-20] MEDS: EMPAGLIFLOZIN 10 MG TABLET PO (08:44)
[2022-10-20] MEDS: METOPROLOL TARTRATE 50 MG TAB PO ×2 (08:44→21:25)
[2022-10-20] MEDS: PANTOPRAZOLE SODIUM IV 40 MG VIAL IV PUSH (08:44)
[2022-10-20] MEDS: lisinopriL 20 MG TABLET PO (08:44)
[2022-10-20] MEDS: POTASSIUM CHLORIDE INJ 40 MEQ in DEXTROSE 5% IN WATER 500 ML 130 MEQ IVPB (08:45)
--- NOTE | 2022-10-20 09:39 | WPDINTPN ---
Progress Note: A&P Assessment and Plan (1) Acute respiratory failure: Code(s): J96.00 - Acute respiratory failure, unspecified whether with hypoxia or hypercapnia Status: Acute Assessment and Plan: 10/12: Patient admitted with encephalopathy, was not protecting airways, received 4 L of IV fluid bolus, once in the ICU she developed respiratory distress was intubated. She was also given racemic epinephrine for some questionable stridor 10/18: Extubated Continue incentive spirometry -continue bronchodilators but change to p.r.n. 10/12: CTA chest abdomen pelvis Questionable pyelonephritis versus motion artifact resulting in heterogeneous appearance of the kidneys. Correlate clinically and with urinalysis. Mild dependent atelectatic change, otherwise no significant abnormality seen in the lungs. No pulmonary embolus identified. 10/19-chest CT -Small bilateral pleural effusions with bibasilar atelectasis (2) Septic shock: Code(s): A41.9 - Sepsis, unspecified organism; R65.21 - Severe sepsis with septic shock Status: Acute Assessment and Plan: Patient presented with encephalopathy, acute kidney injury, fevers of 104.0? F, elevated white blood cell, elevated procalcitonin and CRP -received adequate IV fluids in the ER and ICU on admission -OFF LEVOPHED -10/12: Blood cultures growing MSSA / BOTTLES -10/12: Urine culture NEGATIVE -10/13: Sputum cultures growing yeast -10/14: Repeat blood cultures are negative so far 10/17 and 10/18: Continues to spike fever, -10/18: Repeat blood cultures growing MSSA oxacillin was discontinued and vancomycin was restarted (10/18), already on cefepime (10/17) 10/19 -CT chest abdomen pelvis was performed which did not show any obvious source of infection. Pizano catheter was changed. COTY was done which showed infectious vegetation on posterior mitral valve leaflet. Vegetation was small and only small MR was seen with no structural damage to the valve itself DC cefepime. Continue vancomycin. Add Remove central venous catheter. Patient will need a PICC line eventually for prolonged antibiotic therapy but will wait for cultures became negative. (3) Infective endocarditis: Code(s): I33.0 - Acute and subacute infective endocarditis Status: Acute Assessment and Plan: See above (4) Bacteremia: Code(s): R78.81 - Bacteremia Status: Acute Assessment and Plan: Treatment as above (5) Acute kidney injury: Code(s): N17.9 - Acute kidney failure, unspecified Status: Acute Assessment and Plan: Patient presented with acute kidney injury likely related to hypovolemia, rhabdomyolysis, bacteremia, sepsis/septic shock -adequately fluid-resuscitated -urine output has been adequate -creatinine normal -continue to monitor renal function, electrolytes and urine output -10/13: Renal ultrasound no hydronephrosis, minimal right perinephric fluid -urine lytes show prerenal picture, patient has been adequately fluid-resuscitated, -urine eosinophils are negative (6) Rhabdomyolysis: Code(s): M62.82 - Rhabdomyolysis Status: Acute Assessment and Plan: Patient was found on the ground, unknown amount of down time as the has been conflicting information -CK levels hold of improved but still elevated. Patient receiving D5 water for hypernatremia -hold statin for now (7) Non-ST elevation myocardial infarction (NSTEMI): Code(s): I21.4 - Non-ST elevation (NSTEMI) myocardial infarction Status: Acute Assessment and Plan: Troponins on admission were 9.650->10.700-->10.700->11.000-->5.460 -patient diagnosed with NSTEMI, -status post heparin infusion -continue aspirin 81 mg -echo reviewed -cardiology following -patient will require ischemic workup (8) Cardiomyopathy: Code(s): I42.9 - Cardiomyopathy, unspecified Status: Acute Assessment and Plan: 10/13/2022 echocardiogram:
--- NOTE | 2022-10-20 09:53 | PCSTNOTE ---
Please refer to the Bedside Swallow Evaluation in the EMR. Please note, silent aspiration cannot be ruled out at bedside.
[2022-10-20 09:56] LABS: Vancomycin Trough 12.5 ug/mL (10.0-20.0)
[2022-10-20 10:52] LABS: Glucose Point of Care 102 mg/dl (65-105)
--- NOTE | 2022-10-20 10:52 | PM.PNCARD ---
Progress Note: A&P Assessment and Plan (1) Cardiomyopathy: Code(s): I42.9 - Cardiomyopathy, unspecified Status: Acute Assessment and Plan: Echocardiogram 10/13 showing LVEF 30-35%, mild-moderate MR. New diagnosis of reduced LVEF. In the setting of septic shock, bacteremia, acute respiratory failure requiring mechanical ventilation, TIKA, rhabdo. Will eventually need some sort of ischemic evaluation depending on her clinical course / recovery from her acute issues. Off pressors and TIKA resolved. For GDMT she is on lisinopril and metoprolol, jardiance, and spironolactone. Spironolactone on hold because of hypernatremia. (2) Non-ST elevation myocardial infarction (NSTEMI): Code(s): I21.4 - Non-ST elevation (NSTEMI) myocardial infarction Status: Acute Assessment and Plan: Initial troponin of 9.650 with peak troponin at 11. Initial EKG showing sinus tachycardia without any ischemic changes. Repeat EKG read as possible atrial flutter / atrial tachycardia, but I think it's more sinus tachycardia (no evidence of flutter waves on tele when her heart rate slows down). The third EKG clearly shows sinus tachycardia. Elevated troponins in the setting of septic shock, bacteremia, acute respiratory failure requiring mechanical ventilation, TIKA, rhabdo. The elevated troponins could be from demand ischemia due to the above, however, given the degree of troponin elevation, I cannot rule out an acute coronary syndrome. Recommendations: -ASA 81mg once daily -High intensity statin now on hold because of uptrending CK -Completed Heparin drip per ACS protocol for 48 hours. -Echocardiogram 10/13 showing LVEF 30-35%, mild-moderate MR. Will eventually need some sort of ischemic evaluation depending on her clinical course / recovery from her acute issues. (3) Septic shock: Code(s): A41.9 - Sepsis, unspecified organism; R65.21 - Severe sepsis with septic shock Status: Acute Assessment and Plan: She is off pressors at this point. Staph aureus bacteremia. COTY showed mitral vegetation with mild MR. Continue IV abx. (4) Acute respiratory failure: Code(s): J96.00 - Acute respiratory failure, unspecified whether with hypoxia or hypercapnia Status: Acute Assessment and Plan: Extubated (5) Bacteremia: Code(s): R78.81 - Bacteremia Status: Acute Assessment and Plan: Blood cultures growing Staph aureus. COTY findings as above. Subjective Date/time seen: 10/20/22 10:52 Interval history: Reason for visit: Elevated troponins, cardiomyopathy HPI: We are consulted for elevated troponins. Patient is currently intubated, therefore, unable to obtain any history from the patient. No family at bedside. Therefore, all history obtained from the chart and the medical team. This is a 62-year-old female who is admitted with septic shock, acute respiratory failure requiring intubation and mechanical ventilation, bacteremia, rhabdomyolysis, acute kidney injury. She has a history of anxiety, arthritis, depression, hypertension, hyperlipidemia who presented to [place] [facility] 10/12/2022 with altered mental status. EMS was sent to do a wellness check on the patient as she had not gone to work. Patient found on the ground unresponsive and mottled. Initial labs notable for Cr 1.5, elevated AST/ALT, elevated CK, initial troponin of 9.650. UDS negative. CTA C/A/P with questionable pyelonephritis. Patient intubated in the ICU for respiratory distress.? Date of service 10/14: Remains intubated. Still on pressors. Tele stable. Date of service 10/15: Remains intubated. Off of Levophed. Sinus tach on tele. Date of service 10/16/22: Remains intubated, off pressors and sedation. Does open eyes not not following commands Date of service 10/19/2022: Extubated and alert but unable to verbally respond. She does nod to yes or no questions. Date of service 10/20/2022: No acute events overnight. Remains in the I
--- NOTE | 2022-10-20 12:02 | PCFNICU ---
ICU Rounding Note: Pt current nutrition is 2 gm Na/soft and bite sized Level 6 with Ensure Compact BID. Last recorded weight is 70.5 kg. Bowel Motility:+BM reported 10/18 Labs Reviewed:Mg 2.6, Glu 122, BUN 37, GFR 51, Na 158, Alb 2.8 Meds Noted:Lovenox, Protonix, Lopressor. Skin: Stage II-coccyx Additional Notes: Patient had speech eval today, recommending Soft and Bite Sized, Level 6. Diet supplement added today of Ensure Compact for additional kcal and protein needs. Recommend Candido BID for wound healing. Agree with diet orders. Following daily in ICU rounds. Will monitor weight, labs, tube feeding tolerance, skin every 3 days.
[2022-10-20] MEDS: ceFAZolin 2 GM/D5W 50 ML 2 GM/50 ML BAG IVPB ×2 (13:22→21:25)
[2022-10-20] MEDS: DEXTROSE 5% 1,000 ML 1,000 ML 125 ML IV CONT (13:22)
--- NOTE | 2022-10-20 13:28 | PCPTNOTE ---
On 10/20/22, the student, SAIDA Yadav, provided care and completed [facility] documentation on this patient. I have reviewed the student's documentation and agree with the findings.
[2022-10-20] MEDS: METOPROLOL TARTRATE INJ 5 MG/5 ML VIAL IV PUSH (15:16)
[2022-10-20 16:29] LABS: Anion Gap 0 mmol/L (8-16); Blood Urea Nitrogen 32 mg/dL (7-17); Calcium 8.1 mg/dL (8.4-10.2); Carbon Dioxide 30 mmol/L (22-30); Chloride 116 mmol/L (98-107); Estimated CRCL calculation 42 ml/min; Estimated Glomerular Filt Rate 51; Glucose 119 mg/dL (65-110); Potassium 3.2 mmol/L (3.4-5.0); Sodium 146 mmol/L (137-145)
[2022-10-20 18:09] LABS: Glucose Point of Care 81 mg/dl (65-105)
[2022-10-20] MEDS: ACETAMINOPHEN 650 MG SUPPOSITORY RECTAL (19:32)
[2022-10-20] MEDS: LACTATED RINGERS 1,000 ML 100 ML IV CONT (19:37)
[2022-10-20] MEDS: POTASSIUM CHLORIDE INJ 40 MEQ in SODIUM CHLORIDE 0.9% IV 500 ML 130 MEQ IVPB (19:38)
[2022-10-20] MEDS: POTASSIUM BICARBONATE 25 MEQ TABEF 50 MEQ PO (21:24)
[2022-10-21] VITALS (91 sets, daily range): BP systolic 101–172; BP diastolic 66–97; PULSE 84–124; RESP 3–28; TEMP 37.5–38.7; O2SAT 81–100; BMI 11.0
[2022-10-21 01:12] LABS: Glucose Point of Care 95 mg/dl (65-105)
[2022-10-21 03:35] LABS: Hematocrit 29.2 % (37.0-47.0); Hemoglobin 8.6 g/dL (12.0-15.0); Mean Corpuscular HGB Conc 29.5 g/dl (32-36); Mean Corpuscular Hemoglobin 30.7 pg (26-34); Mean Corpuscular Volume 104.3 fl (80-100); Mean Platelet Volume 11.2 fl (7.4-10.4); Platelet Count Result 565 k/mm3 (150-375); Red Cell Distribution Width 17.6 % (11.5-14.5); White Blood Count 13.5 K/mm3 (4.5-10.0)
[2022-10-21 03:46] LABS: Alanine Aminotransferase 116 U/L (6-35); Alkaline Phosphatase 92 U/L (38-126); Anion Gap 4 mmol/L (8-16); Aspartate Amino Transferase 150 U/L (14-36); Bilirubin,Total 0.4 mg/dL (0.2-1.3); Blood Urea Nitrogen 35 mg/dL (7-17); Calcium 8.5 mg/dL (8.4-10.2); Carbon Dioxide 32 mmol/L (22-30); Chloride 117 mmol/L (98-107); Creatine Kinase 1274 U/L (30-135); Estimated CRCL calculation 42 ml/min; Estimated Glomerular Filt Rate 51; Glucose 102 mg/dL (65-110); Magnesium 2.7 mg/dL (1.6-2.3); Phosphorus 3.8 mg/dL (2.5-4.5); Potassium 3.6 mmol/L (3.4-5.0); Sodium 153 mmol/L (137-145)
[2022-10-21] MEDS: ceFAZolin 2 GM/D5W 50 ML 2 GM/50 ML BAG IVPB ×3 (04:54→20:31)
[2022-10-21] MEDS: CENTRAL LINE FLUSH 10 ML IV PUSH ×4 (04:54→20:31)
[2022-10-21] MEDS: ACETAMINOPHEN 325 MG TABLET 650 MG PO ×3 (05:16→18:32)
[2022-10-21] MEDS: ENOXAPARIN 40 MG/0.4 ML SYRINGE SUB-Q (08:35)
[2022-10-21] MEDS: PANTOPRAZOLE SODIUM IV 40 MG VIAL IV PUSH (08:35)
[2022-10-21] MEDS: lisinopriL 20 MG TABLET PO (08:36)
[2022-10-21] MEDS: METOPROLOL TARTRATE 50 MG TAB PO ×2 (08:36→20:31)
[2022-10-21] MEDS: ASPIRIN 81 MG CHEWABLE TABLET FEED TUBE (08:36)
[2022-10-21] MEDS: EMPAGLIFLOZIN 10 MG TABLET PO (08:36)
[2022-10-21] MEDS: POTASSIUM BICARBONATE 25 MEQ TABEF 50 MEQ PO (08:47)
[2022-10-21] MEDS: DEXTROSE 5% IN WATER 500 ML 50 ML IV CONT ×2 (08:58→17:44)
--- NOTE | 2022-10-21 09:04 | P.PNINT_ITS ---
Progress Note: A&P Assessment and Plan (1) Septic shock: Code(s): A41.9 - Sepsis, unspecified organism; R65.21 - Severe sepsis with septic shock Status: Acute Assessment and Plan: Patient presented with encephalopathy, acute kidney injury, fevers of 104.0? F, elevated white blood cell, elevated procalcitonin and CRP -received adequate IV fluids in the ER and ICU on admission -OFF LEVOPHED -10/12: Blood cultures growing MSSA / BOTTLES -10/12: Urine culture NEGATIVE -10/13: Sputum cultures growing yeast -10/14: Repeat blood cultures are negative so far 10/17 and 10/18: Continues to spike fever, -10/18: Repeat blood cultures growing MSSA oxacillin was discontinued and vancomycin was restarted (10/18), already on cefepime (10/17) 10/19: Repeat blood cultures are growing Gram-positive cocci in clusters 10/19 -CT chest abdomen pelvis was performed which did not show any obvious source of infection. Pizano catheter was changed. COTY was done which showed infectious vegetation on posterior mitral valve leaflet. Vegetation was small and only small MR was seen with no structural damage to the valve itself 10/20 DC cefepime. Continue vancomycin. Added Ancef. Central venous catheter was removed Patient will need a PICC line eventually for prolonged antibiotic therapy but will wait for cultures became negative. (2) Infective endocarditis: Code(s): I33.0 - Acute and subacute infective endocarditis Status: Acute Assessment and Plan: See above (3) Bacteremia: Code(s): R78.81 - Bacteremia Status: Acute Assessment and Plan: Treatment as above (4) Acute respiratory failure: Code(s): J96.00 - Acute respiratory failure, unspecified whether with hypoxia or hypercapnia Status: Acute Assessment and Plan: 10/12: Patient admitted with encephalopathy, was not protecting airways, received 4 L of IV fluid bolus, once in the ICU she developed respiratory distress was intubated. She was also given racemic epinephrine for some questionable stridor 10/18: Extubated Currently on room air Continue incentive spirometry Continue bronchodilators but change to p.r.n. 10/12: CTA chest abdomen pelvis Questionable pyelonephritis versus motion artifact resulting in heterogeneous appearance of the kidneys. Correlate clinically and with urinalysis. Mild dependent atelectatic change, otherwise no significant abnormality seen in the lungs. No pulmonary embolus identified. 10/19-chest CT -Small bilateral pleural effusions with bibasilar atelectasis (5) Acute kidney injury: Code(s): N17.9 - Acute kidney failure, unspecified Status: Acute Assessment and Plan: Patient presented with acute kidney injury likely related to hypovolemia, rhabdomyolysis, bacteremia, sepsis/septic shock -adequately fluid-resuscitated -urine output has been adequate -creatinine normal -continue to monitor renal function, electrolytes and urine output -10/13: Renal ultrasound no hydronephrosis, minimal right perinephric fluid -urine lytes show prerenal picture, patient has been adequately fluid- resuscitated, -urine eosinophils are negative (6) Rhabdomyolysis: Code(s): M62.82 - Rhabdomyolysis Status: Acute Assessment and Plan: Patient was found on the ground, unknown amount of down time as the has been conflicting information -CK levels hold of improved but still elevated. Patient receiving D5 water for hypernatremia -hold statin for now (7) Non-ST elevation myocardial infarction (NSTEMI): Code(s):
--- NOTE | 2022-10-21 10:52 | PCFNICU ---
ICU Rounding Note: Pt current nutrition is Soft and Bite Sized, Level 6 Last recorded weight is 70.9 kg. Bowel Motility:+Bm reported 10/18 Labs Reviewed:GFR 51, Na 153, Alb 3.0 Meds Noted:Lovenox, Jardiance, Lopressor, Protonix Skin: Stage II-coccyx Additional Notes: Patient has advanced to a soft and bite sized, Level 6 diet. Eating about 50% of breakfast today. Tolerating diet supplements of Ensure Compact BID and Candido BID for wound healing. Agree with diet orders. Following daily in ICU rounds. Will monitor weight, labs, tube feeding tolerance, skin every 5 days.
[2022-10-21 11:55] LABS: Glucose Point of Care 136 mg/dl (65-105)
--- NOTE | 2022-10-21 16:26 | PM.PNCARD ---
Progress Note: A&P Assessment and Plan (1) Cardiomyopathy: Code(s): I42.9 - Cardiomyopathy, unspecified Status: Acute Assessment and Plan: Echocardiogram 10/13 showing LVEF 30-35%, mild-moderate MR. New diagnosis of reduced LVEF. In the setting of septic shock, bacteremia, acute respiratory failure requiring mechanical ventilation, TIKA, rhabdo. Will eventually need some sort of ischemic evaluation depending on her clinical course / recovery from her acute issues. Off pressors and TIKA resolved. For GDMT she is on lisinopril and metoprolol, jardiance, and spironolactone. Spironolactone on hold because of hypernatremia. (2) Non-ST elevation myocardial infarction (NSTEMI): Code(s): I21.4 - Non-ST elevation (NSTEMI) myocardial infarction Status: Acute Assessment and Plan: Initial troponin of 9.650 with peak troponin at 11. Initial EKG showing sinus tachycardia without any ischemic changes. Repeat EKG read as possible atrial flutter / atrial tachycardia, but I think it's more sinus tachycardia (no evidence of flutter waves on tele when her heart rate slows down). The third EKG clearly shows sinus tachycardia. Elevated troponins in the setting of septic shock, bacteremia, acute respiratory failure requiring mechanical ventilation, TIKA, rhabdo. The elevated troponins could be from demand ischemia due to the above, however, given the degree of troponin elevation, I cannot rule out an acute coronary syndrome. Recommendations: -ASA 81mg once daily -High intensity statin now on hold because of uptrending CK -Completed Heparin drip per ACS protocol for 48 hours. -Echocardiogram 10/13 showing LVEF 30-35%, mild-moderate MR. Will eventually need some sort of ischemic evaluation depending on her clinical course / recovery from her acute issues. (3) Acute respiratory failure: Code(s): J96.00 - Acute respiratory failure, unspecified whether with hypoxia or hypercapnia Status: Acute Assessment and Plan: Extubated (4) Bacteremia: Code(s): R78.81 - Bacteremia Status: Acute Assessment and Plan: Blood cultures growing Staph aureus. COTY findings as above. Lines changed, antibiotics modified (now vancomycin and cefazolin), will check more blood cultures in 48 hours and proceed from there. 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 COTY showed mitral vegetation with mild MR. Valve is still competent. Continue IV abx. (6) Stroke, acute, embolic: Code(s): I63.9 - Cerebral infarction, unspecified Status: Acute Assessment and Plan: Patient had altered mental status. Unfortunately her MRI showed multiple bilateral embolic strokes. Subjective Date/time seen: 10/21/22 16:26 Interval history: Reason for visit: Elevated troponins, cardiomyopathy, mitral valve endocarditis HPI: We are consulted for elevated troponins. Patient is currently intubated, therefore, unable to obtain any history from the patient. No family at bedside. Therefore, all history obtained from the chart and the medical team. This is a 62-year-old female who is admitted with septic shock, acute respiratory failure requiring intubation and mechanical ventilation, bacteremia, rhabdomyolysis, acute kidney injury. She has a history of anxiety, arthritis, depression, hypertension, hyperlipidemia who presented to [place] [facility] 10/12/2022 with altered mental status. EMS was sent to do a wellness check on the patient as she had not gone to work. Patient found on the ground unresponsive and mottled. Initial labs notable for Cr 1.5, elevated AST/ALT, elevated CK, initial troponin of 9.650. UDS negative. CTA C/A/P with questionable pyelonephritis. Patient intubated in the ICU for respiratory distress.? Date of service 10/14: Remains intubated. Still on pressors. Tele stable. Date of
[2022-10-21 18:37] LABS: Anion Gap 5 mmol/L (8-16); Blood Urea Nitrogen 32 mg/dL (7-17); Calcium 7.9 mg/dL (8.4-10.2); Carbon Dioxide 30 mmol/L (22-30); Chloride 109 mmol/L (98-107); Estimated CRCL calculation 56 ml/min; Estimated Glomerular Filt Rate > 60; Glucose 134 mg/dL (65-110); Potassium 3.3 mmol/L (3.4-5.0); Sodium 144 mmol/L (137-145)
[2022-10-22] VITALS (104 sets, daily range): BP systolic 112–159; BP diastolic 61–100; PULSE 72–127; RESP 3–28; TEMP 37.6–38.7; O2SAT 84–100; BMI 10.0
[2022-10-22 00:22] LABS: Glucose Point of Care 79 mg/dl (65-105)
[2022-10-22 05:15] LABS: Hematocrit 28.2 % (37.0-47.0); Hemoglobin 8.4 g/dL (12.0-15.0); Mean Corpuscular HGB Conc 29.8 g/dl (32-36); Mean Corpuscular Hemoglobin 30.7 pg (26-34); Mean Corpuscular Volume 102.9 fl (80-100); Mean Platelet Volume 10.8 fl (7.4-10.4); Platelet Count Result 556 k/mm3 (150-375); Red Blood Count 2.74 M/mm3 (4.2-5.4); White Blood Count 12.3 K/mm3 (4.5-10.0)
[2022-10-22] MEDS: ceFAZolin 2 GM/D5W 50 ML 2 GM/50 ML BAG IVPB ×3 (05:24→20:41)
[2022-10-22 05:27] LABS: Alanine Aminotransferase 72 U/L (6-35); Albumin Level 2.9 g/dL (3.5-5.1); Alkaline Phosphatase 86 U/L (38-126); Anion Gap 3 mmol/L (8-16); Aspartate Amino Transferase 110 U/L (14-36); Bilirubin,Total 0.4 mg/dL (0.2-1.3); Blood Urea Nitrogen 25 mg/dL (7-17); Calcium 8.7 mg/dL (8.4-10.2); Carbon Dioxide 32 mmol/L (22-30); Chloride 112 mmol/L (98-107); Creatine Kinase 531 U/L (30-135); Estimated CRCL calculation 50 ml/min; Estimated Glomerular Filt Rate > 60; Glucose 95 mg/dL (65-110); Magnesium 2.5 mg/dL (1.6-2.3); Phosphorus 4.2 mg/dL (2.5-4.5); Potassium 3.2 mmol/L (3.4-5.0); Sodium 147 mmol/L (137-145)
--- NOTE | 2022-10-22 07:46 | PM.IMPN ---
Progress Note: A&P Assessment and Plan (1) Septic shock: Code(s): A41.9 - Sepsis, unspecified organism; R65.21 - Severe sepsis with septic shock Status: Acute Assessment and Plan: Patient presented with encephalopathy, acute kidney injury, fevers of 104.0? F, elevated white blood cell, elevated procalcitonin and CRP -received adequate IV fluids in the ER and ICU on admission -OFF LEVOPHED -10/12: Blood cultures growing MSSA / BOTTLES -10/12: Urine culture NEGATIVE -10/13: Sputum cultures growing yeast -10/14: Repeat blood cultures are negative so far 10/17 and 10/18: Continues to spike fever, -10/18: Repeat blood cultures growing MSSA oxacillin was discontinued and vancomycin was restarted (10/18), already on cefepime (10/17) 10/19: Repeat blood cultures are growing Gram-positive cocci in clusters 10/19 -CT chest abdomen pelvis was performed which did not show any obvious source of infection. Pizano catheter was changed. COTY was done which showed infectious vegetation on posterior mitral valve leaflet. Vegetation was small and only small MR was seen with no structural damage to the valve itself 10/20 DC cefepime. Continue vancomycin. Added Ancef. Central venous catheter was removed Patient will need a PICC line eventually for prolonged antibiotic therapy but will wait for cultures to become negative. Repeat blood cultures ordered and pending 10/22 (2) Infective endocarditis: Code(s): I33.0 - Acute and subacute infective endocarditis Status: Acute Assessment and Plan: See above (3) Bacteremia: Code(s): R78.81 - Bacteremia Status: Acute Assessment and Plan: Treatment as above (4) Acute respiratory failure: Code(s): J96.00 - Acute respiratory failure, unspecified whether with hypoxia or hypercapnia Status: Acute Assessment and Plan: 10/12: Patient admitted with encephalopathy, was not protecting airways, received 4 L of IV fluid bolus, once in the ICU she developed respiratory distress was intubated. She was also given racemic epinephrine for some questionable stridor 10/18: Extubated Currently on room air Continue incentive spirometry Continue bronchodilators but change to p.r.n. 10/12: CTA chest abdomen pelvis Questionable pyelonephritis versus motion artifact resulting in heterogeneous appearance of the kidneys. Correlate clinically and with urinalysis. Mild dependent atelectatic change, otherwise no significant abnormality seen in the lungs. No pulmonary embolus identified. 10/19-chest CT -Small bilateral pleural effusions with bibasilar atelectasis (5) Acute kidney injury: Code(s): N17.9 - Acute kidney failure, unspecified Status: Acute Assessment and Plan: Patient presented with acute kidney injury likely related to hypovolemia, rhabdomyolysis, bacteremia, sepsis/septic shock -adequately fluid-resuscitated -urine output has been adequate -creatinine normal -continue to monitor renal function, electrolytes and urine output -10/13: Renal ultrasound no hydronephrosis, minimal right perinephric fluid -urine lytes show prerenal picture, patient has been adequately fluid-resuscitated, -urine eosinophils are negative (6) Rhabdomyolysis: Code(s): M62.82 - Rhabdomyolysis Status: Acute Assessment and Plan: Patient was found on the ground, unknown amount of down time as the has been conflicting information -CK levels hold of improved but still elevated. Patient receiving D5 water for hypernatremia -hold statin for now (7) Non-ST elevation myocardial infarction (NSTEMI): Code(s): I21.4 - Non-ST elevation (NSTEMI) myocardial infarction Status: Acute Assessment and Plan: Troponins on admission were 9.650->10.700-->10.700->11.000-->5.460 -patient diagnosed with NSTEMI, -status post heparin infusion -continue aspirin 81 mg -echo reviewed -cardiology following -patient will require ischem
--- NOTE | 2022-10-22 09:08 | PM.PNCARD ---
Progress Note: A&P Assessment and Plan (1) Cardiomyopathy: Code(s): I42.9 - Cardiomyopathy, unspecified Status: Acute Assessment and Plan: Echocardiogram 10/13 showing LVEF 30-35%, mild-moderate MR. New diagnosis of reduced LVEF. In the setting of septic shock, bacteremia, acute respiratory failure requiring mechanical ventilation, TIKA, rhabdo. Will eventually need some sort of ischemic evaluation depending on her clinical course / recovery from her acute issues. Off pressors and TIKA resolved. For GDMT she is on lisinopril and metoprolol, jardiance, and spironolactone. Spironolactone on hold because of hypernatremia. (2) Non-ST elevation myocardial infarction (NSTEMI): Code(s): I21.4 - Non-ST elevation (NSTEMI) myocardial infarction Status: Acute Assessment and Plan: Initial troponin of 9.650 with peak troponin at 11. Initial EKG showing sinus tachycardia without any ischemic changes. Repeat EKG read as possible atrial flutter / atrial tachycardia, but I think it's more sinus tachycardia (no evidence of flutter waves on tele when her heart rate slows down). The third EKG clearly shows sinus tachycardia. Elevated troponins in the setting of septic shock, bacteremia, acute respiratory failure requiring mechanical ventilation, TIKA, rhabdo. The elevated troponins could be from demand ischemia due to the above, however, given the degree of troponin elevation, I cannot rule out an acute coronary syndrome. Recommendations: -ASA 81mg once daily -High intensity statin now on hold because of uptrending CK -Completed Heparin drip per ACS protocol for 48 hours. -Echocardiogram 10/13 showing LVEF 30-35%, mild-moderate MR. Will eventually need some sort of ischemic evaluation depending on her clinical course / recovery from her acute issues. (3) Acute respiratory failure: Code(s): J96.00 - Acute respiratory failure, unspecified whether with hypoxia or hypercapnia Status: Acute Assessment and Plan: Extubated (4) Bacteremia: Code(s): R78.81 - Bacteremia Status: Acute Assessment and Plan: Blood cultures growing Staph aureus. COTY findings as above. Lines changed, antibiotics modified (now vancomycin and cefazolin), blood cultures being repeated today. 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 COTY showed mitral vegetation with mild MR. Valve is still competent. Continue IV abx. (6) Stroke, acute, embolic: Code(s): I63.9 - Cerebral infarction, unspecified Status: Acute Assessment and Plan: Patient had altered mental status. Unfortunately her MRI showed multiple bilateral embolic strokes. Subjective Date/time seen: 10/22/22 09:08 Interval history: Reason for visit: Elevated troponins, cardiomyopathy, mitral valve endocarditis HPI: We are consulted for elevated troponins. Patient is currently intubated, therefore, unable to obtain any history from the patient. No family at bedside. Therefore, all history obtained from the chart and the medical team. This is a 62-year-old female who is admitted with septic shock, acute respiratory failure requiring intubation and mechanical ventilation, bacteremia, rhabdomyolysis, acute kidney injury. She has a history of anxiety, arthritis, depression, hypertension, hyperlipidemia who presented to [place] [facility] 10/12/2022 with altered mental status. EMS was sent to do a wellness check on the patient as she had not gone to work. Patient found on the ground unresponsive and mottled. Initial labs notable for Cr 1.5, elevated AST/ALT, elevated CK, initial troponin of 9.650. UDS negative. CTA C/A/P with questionable pyelonephritis. Patient intubated in the ICU for respiratory distress.? Date of service 10/14: Remains intubated. Still on pressors. Tele stable. Date of service 10/15: Remains intubat
[2022-10-22] MEDS: METOPROLOL TARTRATE 50 MG TAB PO ×2 (09:17→20:41)
[2022-10-22] MEDS: lisinopriL 20 MG TABLET PO (09:17)
[2022-10-22] MEDS: EMPAGLIFLOZIN 10 MG TABLET PO (09:17)
[2022-10-22] MEDS: ACETAMINOPHEN 325 MG TABLET 650 MG PO ×2 (09:17→15:06)
[2022-10-22] MEDS: ASPIRIN 81 MG CHEWABLE TABLET FEED TUBE (09:18)
[2022-10-22] MEDS: PANTOPRAZOLE SODIUM IV 40 MG VIAL IV PUSH (09:18)
[2022-10-22] MEDS: ENOXAPARIN 40 MG/0.4 ML SYRINGE SUB-Q (12:19)
[2022-10-22 12:54] LABS: Glucose Point of Care 153 mg/dl (65-105)
[2022-10-22 16:52] LABS: Glucose Point of Care 147 mg/dl (65-105)
[2022-10-22] MEDS: ENOXAPARIN 80 MG/0.8 ML SYRINGE 70 MG SUB-Q (23:16)
[2022-10-22 23:20] LABS: Glucose Point of Care 78 mg/dl (65-105)
[2022-10-23] VITALS (43 sets, daily range): BP systolic 118–144; BP diastolic 63–83; PULSE 87–123; RESP 10–30; TEMP 37.9–39.2; O2SAT 93–100
[2022-10-23 05:44] LABS: Glucose Point of Care 108 mg/dl (65-105)
[2022-10-23] MEDS: ceFAZolin 2 GM/D5W 50 ML 2 GM/50 ML BAG IVPB ×3 (05:44→20:51)
[2022-10-23] MEDS: METOPROLOL TARTRATE 50 MG TAB PO ×2 (09:26→20:50)
[2022-10-23] MEDS: PANTOPRAZOLE SODIUM IV 40 MG VIAL IV PUSH (09:26)
[2022-10-23] MEDS: ACETAMINOPHEN 325 MG TABLET 650 MG PO ×2 (09:27→17:21)
[2022-10-23] MEDS: ASPIRIN 81 MG CHEWABLE TABLET FEED TUBE (09:27)
[2022-10-23] MEDS: EMPAGLIFLOZIN 10 MG TABLET PO (09:27)
[2022-10-23] MEDS: lisinopriL 20 MG TABLET PO (09:28)
[2022-10-23 10:42] LABS: Hematocrit 30.2 % (37.0-47.0); Hemoglobin 8.8 g/dL (12.0-15.0); Mean Corpuscular HGB Conc 29.1 g/dl (32-36); Mean Corpuscular Hemoglobin 30.1 pg (26-34); Mean Corpuscular Volume 103.4 fl (80-100); Mean Platelet Volume 12.5 fl (7.4-10.4); Platelet Count Result 432 k/mm3 (150-375); Red Blood Count 2.92 M/mm3 (4.2-5.4); Red Cell Distribution Width 16.6 % (11.5-14.5); White Blood Count 11.8 K/mm3 (4.5-10.0)
[2022-10-23] MEDS: ENOXAPARIN 80 MG/0.8 ML SYRINGE 70 MG SUB-Q ×2 (11:19→23:19)
[2022-10-23 11:30] LABS: Glucose Point of Care 124 mg/dl (65-105)
--- NOTE | 2022-10-23 11:36 | PM.IMPN ---
Progress Note: A&P Assessment and Plan (1) Septic shock: Code(s): A41.9 - Sepsis, unspecified organism; R65.21 - Severe sepsis with septic shock Status: Acute Assessment and Plan: Patient presented with encephalopathy, acute kidney injury, fevers of 104.0? F, elevated white blood cell, elevated procalcitonin and CRP -received adequate IV fluids in the ER and ICU on admission -OFF LEVOPHED -10/12: Blood cultures growing MSSA 2/ BOTTLES -10/12: Urine culture NEGATIVE -10/13: Sputum cultures growing yeast -10/18: Repeat blood cultures growing MSSA oxacillin was discontinued and vancomycin was restarted (10/18), already on cefepime (10/17) 10/19: Repeat blood cultures are growing Gram-positive cocci in clusters 10/19 -CT chest abdomen pelvis was performed which did not show any obvious source of infection. Pizano catheter was changed. COTY was done which showed infectious vegetation on posterior mitral valve leaflet. Vegetation was small and only small MR was seen with no structural damage to the valve itself Continue cefazolin. Discontinue vancomycin Patient will need a PICC line eventually for prolonged antibiotic therapy but will wait for cultures to become negative. Repeat blood cultures ordered and pending 10/22 (2) Infective endocarditis: Code(s): I33.0 - Acute and subacute infective endocarditis Status: Acute Assessment and Plan: See above (3) Bacteremia: Code(s): R78.81 - Bacteremia Status: Acute Assessment and Plan: Treatment as above (4) Acute respiratory failure: Code(s): J96.00 - Acute respiratory failure, unspecified whether with hypoxia or hypercapnia Status: Acute Assessment and Plan: 10/12: Patient admitted with encephalopathy, was not protecting airways, received 4 L of IV fluid bolus, once in the ICU she developed respiratory distress was intubated. She was also given racemic epinephrine for some questionable stridor 10/18: Extubated Currently on room air Continue incentive spirometry Continue bronchodilators but change to p.r.n. (5) Acute kidney injury: Code(s): N17.9 - Acute kidney failure, unspecified Status: Acute Assessment and Plan: Patient presented with acute kidney injury likely related to hypovolemia, rhabdomyolysis, bacteremia, sepsis/septic shock -adequately fluid-resuscitated -urine output has been adequate -creatinine normal -continue to monitor renal function, electrolytes and urine output -10/13: Renal ultrasound no hydronephrosis, minimal right perinephric fluid -urine lytes show prerenal picture, patient has been adequately fluid-resuscitated, -urine eosinophils are negative (6) Rhabdomyolysis: Code(s): M62.82 - Rhabdomyolysis Status: Acute Assessment and Plan: Patient was found on the ground, unknown amount of down time as the has been conflicting information -CK levels improved but still elevated. Continue IV fluid -hold statin for now (7) Non-ST elevation myocardial infarction (NSTEMI): Code(s): I21.4 - Non-ST elevation (NSTEMI) myocardial infarction Status: Acute Assessment and Plan: Troponins on admission were 9.650->10.700-->10.700->11.000-->5.460 -patient diagnosed with NSTEMI, -status post heparin infusion -continue aspirin 81 mg -echo reviewed -cardiology following -patient will require ischemic workup once stable (8) Cardiomyopathy: Code(s): I42.9 - Cardiomyopathy, unspecified Status: Acute Assessment and Plan: 10/13/2022 echocardiogram: Showed EF 30-35%, [id number] mitral valve regurg RV systolic function is reduced New onset cardiomyopathy could be related to NSTEMI, septic shock -will require ischemic workup eventually -cardiology following -continue lisinopril, metoprolol, hold spironolactone (9) Encephalopathy: Code(s): G93.40 - Encephalopathy, unspecified Status: Acute As
[2022-10-23 12:42] LABS: Alanine Aminotransferase 44 U/L (6-35); Albumin Level 2.9 g/dL (3.5-5.1); Alkaline Phosphatase 85 U/L (38-126); Anion Gap 4 mmol/L (8-16); Aspartate Amino Transferase 77 U/L (14-36); Bilirubin,Total 0.3 mg/dL (0.2-1.3); Blood Urea Nitrogen 25 mg/dL (7-17); Carbon Dioxide 33 mmol/L (22-30); Chloride 104 mmol/L (98-107); Creatine Kinase 215 U/L (30-135); Estimated CRCL calculation 50 ml/min; Estimated Glomerular Filt Rate > 60; Glucose 105 mg/dL (65-110); Magnesium 2.4 mg/dL (1.6-2.3); Potassium 2.8 mmol/L (3.4-5.0); Sodium 141 mmol/L (137-145)
[2022-10-23] MEDS: POTASSIUM CHLORIDE 20 MEQ ER TABLET 80 MEQ PO (13:58)
[2022-10-23 18:28] LABS: Glucose Point of Care 196 mg/dl (65-105)
[2022-10-23 19:51] LABS: Anion Gap 2 mmol/L (8-16); Blood Urea Nitrogen 21 mg/dL (7-17); Calcium 7.9 mg/dL (8.4-10.2); Carbon Dioxide 30 mmol/L (22-30); Chloride 104 mmol/L (98-107); Estimated CRCL calculation 64 ml/min; Estimated Glomerular Filt Rate > 60; Glucose 160 mg/dL (65-110); Potassium 3.1 mmol/L (3.4-5.0); Sodium 136 mmol/L (137-145)
[2022-10-23 23:26] LABS: Glucose Point of Care 127 mg/dl (65-105)
[2022-10-24] VITALS (22 sets, daily range): BP systolic 99–156; BP diastolic 68–88; PULSE 93–134; RESP 12–22; TEMP 38–39.4; O2SAT 93–100
[2022-10-24] MEDS: ACETAMINOPHEN 325 MG TABLET 650 MG PO ×4 (00:45→23:30)
[2022-10-24] MEDS: ceFAZolin 2 GM/D5W 50 ML 2 GM/50 ML BAG IVPB ×3 (06:17→21:59)
[2022-10-24 06:22] LABS: Glucose Point of Care 177 mg/dl (65-105)
[2022-10-24] MEDS: PANTOPRAZOLE SODIUM IV 40 MG VIAL IV PUSH (09:33)
[2022-10-24] MEDS: METOPROLOL TARTRATE 50 MG TAB PO ×2 (09:34→22:00)
[2022-10-24] MEDS: EMPAGLIFLOZIN 10 MG TABLET PO (09:34)
[2022-10-24] MEDS: lisinopriL 20 MG TABLET PO (09:34)
[2022-10-24] MEDS: ASPIRIN 81 MG CHEWABLE TABLET FEED TUBE (09:34)
[2022-10-24] MEDS: polyethylene glycoL 3350 17 GM POWD.PACK PO (11:20)
[2022-10-24] MEDS: DOCUSATE SODIUM 100 MG CAPSULE PO (11:20)
[2022-10-24] MEDS: ENOXAPARIN 80 MG/0.8 ML SYRINGE 70 MG SUB-Q ×2 (11:21→23:30)
--- NOTE | 2022-10-24 11:40 | PM.IMPN ---
Progress Note: A&P Assessment and Plan (1) Septic shock: Code(s): A41.9 - Sepsis, unspecified organism; R65.21 - Severe sepsis with septic shock Status: Acute Assessment and Plan: Patient presented with encephalopathy, acute kidney injury, fevers of 104.0? F, elevated white blood cell, elevated procalcitonin and CRP -10/12: Blood cultures growing MSSA 2/ BOTTLES -10/12: Urine culture NEGATIVE -10/13: Sputum cultures growing yeast -10/18: Repeat blood cultures growing MSSA. oxacillin was discontinued and vancomycin was restarted (10/18), already on cefepime 10/19: Repeat blood cultures are growing Gram-positive cocci in clusters 10/19 -CT chest abdomen pelvis was performed which did not show any obvious source of infection. Pizano catheter was changed. COTY was done which showed infectious vegetation on posterior mitral valve leaflet. Vegetation was small and only small MR was seen with no structural damage to the valve itself Continue cefazolin. Discontinue vancomycin Patient will need a PICC line eventually for prolonged antibiotic therapy but will wait for cultures to become negative. Repeat blood cultures ordered and pending (2) Infective endocarditis: Code(s): I33.0 - Acute and subacute infective endocarditis Status: Acute Assessment and Plan: See above (3) Bacteremia: Code(s): R78.81 - Bacteremia Status: Acute Assessment and Plan: Treatment as above (4) Acute respiratory failure: Code(s): J96.00 - Acute respiratory failure, unspecified whether with hypoxia or hypercapnia Status: Acute Assessment and Plan: 10/12: Patient admitted with encephalopathy, was not protecting airways, received 4 L of IV fluid bolus, once in the ICU she developed respiratory distress was intubated. She was also given racemic epinephrine for some questionable stridor 10/18: Extubated Currently on room air Continue incentive spirometry Continue bronchodilators but change to p.r.n. (5) Acute kidney injury: Code(s): N17.9 - Acute kidney failure, unspecified Status: Acute Assessment and Plan: Patient presented with acute kidney injury likely related to hypovolemia, rhabdomyolysis, bacteremia, sepsis/septic shock -adequately fluid-resuscitated -urine output has been adequate -creatinine normal -continue to monitor renal function, electrolytes and urine output -Renal ultrasound no hydronephrosis, minimal right perinephric fluid (6) Rhabdomyolysis: Code(s): M62.82 - Rhabdomyolysis Status: Acute Assessment and Plan: Patient was found on the ground, unknown amount of down time as the has been conflicting information -CK levels improved but still elevated. -hold statin for now (7) Non-ST elevation myocardial infarction (NSTEMI): Code(s): I21.4 - Non-ST elevation (NSTEMI) myocardial infarction Status: Acute Assessment and Plan: Troponins on admission were 9.650->10.700-->10.700->11.000-->5.460 -patient diagnosed with NSTEMI, -status post heparin infusion -continue aspirin 81 mg -echo reviewed -cardiology following -patient will require ischemic workup once stable (8) Cardiomyopathy: Code(s): I42.9 - Cardiomyopathy, unspecified Status: Acute Assessment and Plan: 10/13/2022 echocardiogram: Showed EF 30-35%, [id number] mitral valve regurg RV systolic function is reduced New onset cardiomyopathy could be related to NSTEMI, septic shock -will require ischemic workup eventually -cardiology following -continue lisinopril, metoprolol, hold spironolactone (9) Encephalopathy: Code(s): G93.40 - Encephalopathy, unspecified Status: Acute Assessment and Plan: Encephalopathy was thought to be likely multifactorial including medications, NSTEMI, acute kidney injury, bacteremia, sepsis -10/14: EEG - This is an abnormal routine EEG due to the presence of generalized
[2022-10-24 12:48] LABS: Glucose Point of Care 106 mg/dl (65-105)
[2022-10-24 15:23] LABS: Hematocrit 25.4 % (37.0-47.0); Hemoglobin 7.5 g/dL (12.0-15.0); Mean Corpuscular HGB Conc 29.5 g/dl (32-36); Mean Corpuscular Hemoglobin 29.8 pg (26-34); Mean Corpuscular Volume 100.8 fl (80-100); Mean Platelet Volume 10.3 fl (7.4-10.4); Platelet Count Result 643 k/mm3 (150-375); Red Blood Count 2.52 M/mm3 (4.2-5.4); Red Cell Distribution Width 15.9 % (11.5-14.5); White Blood Count 11.5 K/mm3 (4.5-10.0)
[2022-10-24 15:36] LABS: Magnesium 2.2 mg/dL (1.6-2.3); Phosphorus 3.4 mg/dL (2.5-4.5)
[2022-10-24] MEDS: POTASSIUM CHLORIDE 20 MEQ ER TABLET 80 MEQ PO (17:49)
[2022-10-24] MEDS: METOPROLOL TARTRATE INJ 5 MG/5 ML VIAL IV PUSH (18:08)
[2022-10-24] MEDS: CENTRAL LINE FLUSH 10 ML IV PUSH (22:00)
[2022-10-25] VITALS (21 sets, daily range): BP systolic 103–147; BP diastolic 56–87; PULSE 101–136; RESP 16–26; TEMP 36.2–39.7; O2SAT 97–100
[2022-10-25 05:25] LABS: Hematocrit 24.1 % (37.0-47.0); Hemoglobin 7.2 g/dL (12.0-15.0); Mean Corpuscular HGB Conc 29.9 g/dl (32-36); Mean Corpuscular Hemoglobin 29.9 pg (26-34); Platelet Count Result 635 k/mm3 (150-375); Red Blood Count 2.41 M/mm3 (4.2-5.4); Red Cell Distribution Width 15.9 % (11.5-14.5); White Blood Count 11.1 K/mm3 (4.5-10.0)
[2022-10-25 05:32] LABS: Chloride 106 mmol/L (98-107)
[2022-10-25] MEDS: ceFAZolin 2 GM/D5W 50 ML 2 GM/50 ML BAG IVPB ×3 (05:36→22:38)
[2022-10-25] MEDS: CENTRAL LINE FLUSH 10 ML IV PUSH ×3 (05:37→22:40)
[2022-10-25] MEDS: ACETAMINOPHEN 325 MG TABLET 650 MG PO ×3 (05:37→20:12)
[2022-10-25 05:38] LABS: Anion Gap 4 mmol/L (8-16); Blood Urea Nitrogen 22 mg/dL (7-17); Calcium 8.3 mg/dL (8.4-10.2); Carbon Dioxide 32 mmol/L (22-30); Estimated CRCL calculation 64 ml/min; Estimated Glomerular Filt Rate > 60; Glucose 107 mg/dL (65-110); Potassium 3.4 mmol/L (3.4-5.0); Sodium 142 mmol/L (137-145)
[2022-10-25 10:04] LABS: Lactic Acid Reflex 2.3 mmol/L (0.7-2.0)
[2022-10-25] MEDS: polyethylene glycoL 3350 17 GM POWD.PACK PO (10:13)
[2022-10-25] MEDS: EMPAGLIFLOZIN 10 MG TABLET PO (10:13)
[2022-10-25] MEDS: DOCUSATE SODIUM 100 MG CAPSULE PO (10:13)
[2022-10-25] MEDS: ASPIRIN 81 MG CHEWABLE TABLET BY MOUTH (10:14)
[2022-10-25] MEDS: METOPROLOL TARTRATE 50 MG TAB PO ×2 (10:14→20:12)
[2022-10-25] MEDS: lisinopriL 20 MG TABLET PO (10:14)
[2022-10-25 11:22] LABS: Procalcitonin 0.4 ng/mL
--- NOTE | 2022-10-25 12:08 | PM.IMPN ---
Progress Note: A&P Assessment and Plan (1) Septic shock: Code(s): A41.9 - Sepsis, unspecified organism; R65.21 - Severe sepsis with septic shock Status: Acute Assessment and Plan: -10/12: Blood cultures growing MSSA / BOTTLES -10/12: Urine culture NEGATIVE -10/13: Sputum cultures growing yeast -10/18: Repeat blood cultures growing MSSA. oxacillin was discontinued and vancomycin was restarted (10/18), already on cefazolin 10/19: Repeat blood cultures are growing Gram-positive cocci in clusters 10/19 -CT chest abdomen pelvis was performed which did not show any obvious source of infection. Pizano catheter was changed. COTY was done which showed infectious vegetation on posterior mitral valve leaflet. Vegetation was small and only small MR was seen with no structural damage to the valve itself Continue cefazolin. Discontinue vancomycin Patient will need a PICC line eventually for prolonged antibiotic therapy but will wait for cultures to become negative. Patient remains febrile. Blood cultures from 10/22 negative so far. repeat blood cultures again today. Check a UA. She had a chest x-ray done yesterday post PICC line which did not report any infiltrates Lactic acid elevated. Procalcitonin normal. Will add vancomycin and Flagyl to her current regimen of cefazolin. (2) Infective endocarditis: Code(s): I33.0 - Acute and subacute infective endocarditis Status: Acute Assessment and Plan: See above (3) Bacteremia: Code(s): R78.81 - Bacteremia Status: Acute Assessment and Plan: Treatment as above Continue cefazolin. Add vancomycin and Flagyl for broadening coverage (4) Acute respiratory failure: Code(s): J96.00 - Acute respiratory failure, unspecified whether with hypoxia or hypercapnia Status: Acute Assessment and Plan: 10/12: Patient admitted with encephalopathy, was not protecting airways, received 4 L of IV fluid bolus, once in the ICU she developed respiratory distress was intubated. She was also given racemic epinephrine for some questionable stridor 10/18: Extubated Currently on room air Continue incentive spirometry Continue bronchodilators (5) Acute kidney injury: Code(s): N17.9 - Acute kidney failure, unspecified Status: Acute Assessment and Plan: Patient presented with acute kidney injury likely related to hypovolemia, rhabdomyolysis, bacteremia, sepsis/septic shock -adequately fluid-resuscitated -urine output has been adequate -creatinine normal -continue to monitor renal function, electrolytes and urine output -Renal ultrasound no hydronephrosis, minimal right perinephric fluid (6) Rhabdomyolysis: Code(s): M62.82 - Rhabdomyolysis Status: Acute Assessment and Plan: Patient was found on the ground, unknown amount of down time as the has been conflicting information -hold statin for now (7) Non-ST elevation myocardial infarction (NSTEMI): Code(s): I21.4 - Non-ST elevation (NSTEMI) myocardial infarction Status: Acute Assessment and Plan: Troponins on admission were 9.650->10.700-->10.700->11.000-->5.460 -patient diagnosed with NSTEMI, -status post heparin infusion -continue aspirin 81 mg -echo reviewed -cardiology following -patient will require ischemic workup once stable (8) Cardiomyopathy: Code(s): I42.9 - Cardiomyopathy, unspecified Status: Acute Assessment and Plan: 10/13/2022 echocardiogram: Showed EF 30-35%, [id number] mitral valve regurg RV systolic function is reduced New onset cardiomyopathy could be related to NSTEMI, septic shock -will require ischemic workup eventually -cardiology following -continue lisinopril, metoprolol, hold spironolactone (9) Encephalopathy: Code(s): G93.40 - Encephalopathy, unspecified Status: Acute Assessment and Plan: Encephalopathy was thought to be likely multifactorial
[2022-10-25 12:49] LABS: Reflex Lactic Acid Yes or No Add Lactic
[2022-10-25] MEDS: ENOXAPARIN 80 MG/0.8 ML SYRINGE 70 MG SUB-Q ×2 (13:15→22:40)
[2022-10-25] MEDS: metroNIDAZOLE 500 MG/ISO 100ML 500 MG/100 ML BAG 100 MG IVPB ×2 (13:16→22:39)
[2022-10-25 13:49] LABS: Lactic Acid 1.4 mmol/L (0.7-2.0)
--- NOTE | 2022-10-25 15:52 | PC.NURSE ---
This patient, Ghislaine Mcnamara, was transferred to [facility] [place] on 10/25/22 at 1552. Personal belongings sent with patient. Report given to PIYUSH Díaz. Appropriate documentation sent with patient.
[2022-10-25 16:20] LABS: Appearance Urine Turbid (Clear); Color Urine Yellow (Yellow); pH Urine 5.5 (5.0-9.0)
[2022-10-25 16:21] LABS: Bacteria Urine None Seen /hpf; Bilirubin Urine Negative (Negative); Blood Urine 1+ (Negative); Budding Yeast Urine Present /hpf; Glucose Urine UA 3+ mg/dL (Negative); Ketones Urine Negative (Negative); Leukocyte Esterase Ur 3+ LEU/UL (NEGATIVE); Nitrate Urine Negative (Negative); Non Pathogenic Casts 0-2; Protein Urine 1+ mg/dL (Negative); RBC Urine 21-50 /hpf (0-2); Specific Grav Ur 1.019 (1.001-1.035); Squamous Epithelial Cell Urine None seen /hpf (Few); WBC Urine >100 /hpf (0-3)
[2022-10-25 16:38] LABS: Add Urine Microscopic? YES
[2022-10-26] VITALS (17 sets, daily range): BP systolic 87–112; BP diastolic 52–81; PULSE 109–127; RESP 14–20; TEMP 36.9–39.2; O2SAT 93–100
[2022-10-26] MEDS: ACETAMINOPHEN 325 MG TABLET 650 MG PO ×2 (03:30→12:50)
[2022-10-26 04:08] LABS: Basophils Absolute Auto 0.1 K/mm3 (0.0-0.1); Basophils Percent Auto 0.4 % (0.2-1.2); Eosinophils Absolute Auto 0.1 K/mm3 (0-0.3); Eosinophils Percent Auto 0.5 % (0-4.4); Hematocrit 22.6 % (37.0-47.0); Immature Granulocyte Absolute 0.13 K/mm3 (0.00-0.031); Immature Granulocyte Percent A 1.1 % (0-0.5); Lymphocytes Absolute Auto 1.51 K/mm3 (0.9-3.2); Lymphocytes Percent Auto 13.1 % (18.3-44.2); Mean Corpuscular HGB Conc 29.6 g/dl (32-36); Mean Corpuscular Hemoglobin 29.3 pg (26-34); Mean Corpuscular Volume 98.7 fl (80-100); Mean Platelet Volume 10.5 fl (7.4-10.4); Monocytes Absolute Auto 0.8 K/mm3 (0.1-0.6); Monocytes Percent Auto 6.9 % (2.6-8.5); Platelet Count Result 665 k/mm3 (150-375); Red Blood Count 2.29 M/mm3 (4.2-5.4); White Blood Count 11.6 K/mm3 (4.5-10.0)
[2022-10-26 04:24] LABS: Anion Gap 0 mmol/L (8-16); Blood Urea Nitrogen 23 mg/dL (7-17); Calcium 7.9 mg/dL (8.4-10.2); Carbon Dioxide 31 mmol/L (22-30); Chloride 104 mmol/L (98-107); Estimated CRCL calculation 56 ml/min; Estimated Glomerular Filt Rate > 60; Glucose 105 mg/dL (65-110); Potassium 3.1 mmol/L (3.4-5.0); Sodium 135 mmol/L (137-145)
[2022-10-26 04:34] LABS: Hemoglobin 6.7 g/dL (12.0-15.0)
[2022-10-26 04:35] LABS: Platelet Clumps Present; Platelet Estimate Increased (Adequate)
[2022-10-26 04:36] LABS: Hypochromasia 2+ (NORMAL)
[2022-10-26 04:37] LABS: Ovalocytes 1+ (NORMAL); Schistocytes Rare (NORMAL); Target Cells 1+ (NORMAL)
[2022-10-26] MEDS: ceFAZolin 2 GM/D5W 50 ML 2 GM/50 ML BAG IVPB ×2 (06:28→15:19)
[2022-10-26] MEDS: metroNIDAZOLE 500 MG/ISO 100ML 500 MG/100 ML BAG 100 MG IVPB ×2 (06:28→12:54)
[2022-10-26] MEDS: CENTRAL LINE FLUSH 10 ML IV PUSH ×2 (06:28→15:19)
[2022-10-26] MEDS: DOCUSATE SODIUM 100 MG CAPSULE PO (08:50)
[2022-10-26] MEDS: METOPROLOL TARTRATE 50 MG TAB PO (08:50)
[2022-10-26] MEDS: ASPIRIN 81 MG CHEWABLE TABLET BY MOUTH (08:50)
[2022-10-26] MEDS: polyethylene glycoL 3350 17 GM POWD.PACK PO (08:51)
[2022-10-26] MEDS: lisinopriL 20 MG TABLET PO (08:51)
[2022-10-26] MEDS: EMPAGLIFLOZIN 10 MG TABLET PO (08:51)
[2022-10-26] MEDS: POTASSIUM CHLORIDE 20 MEQ ER TABLET 40 MEQ PO (08:53)
[2022-10-26] MEDS: FLUCONAZOLE 100 MG TABLET PO (09:05)
--- NOTE | 2022-10-26 10:58 | PM.IMPN ---
Progress Note: A&P Assessment and Plan (1) Septic shock: Code(s): A41.9 - Sepsis, unspecified organism; R65.21 - Severe sepsis with septic shock Status: Acute Assessment and Plan: -10/12: Blood cultures growing MSSA / BOTTLES -10/12: Urine culture NEGATIVE -10/13: Sputum cultures growing yeast -10/18: Repeat blood cultures growing MSSA. oxacillin was discontinued and vancomycin was restarted (10/18), already on cefazolin 10/19: Repeat blood cultures are growing Gram-positive cocci in clusters 10/19 -CT chest abdomen pelvis was performed which did not show any obvious source of infection. Pizano catheter was changed. COTY was done which showed infectious vegetation on posterior mitral valve leaflet. Vegetation was small and only small MR was seen with no structural damage to the valve itself Patient remains febrile. Blood cultures from 10/22 negative so far. repeat blood cultures again 10/25/22. She had a chest x-ray done post PICC line which did not report any infiltrates Lactic acid elevated. Procalcitonin normal. Continued cefazolin, vancomycin and Flagyl. Patient still spiking fever although had low-grade fever this morning. Persistent fever could be from fungemia. Will get fungal culture. Urine analysis showing UTI and fungus. Will start on Diflucan daily (2) Infective endocarditis: Code(s): I33.0 - Acute and subacute infective endocarditis Status: Acute Assessment and Plan: See above (3) Bacteremia: Code(s): R78.81 - Bacteremia Status: Acute Assessment and Plan: Treatment as above Continue cefazolin. Add vancomycin and Flagyl for broadening coverage (4) Acute respiratory failure: Code(s): J96.00 - Acute respiratory failure, unspecified whether with hypoxia or hypercapnia Status: Acute Assessment and Plan: 10/12: Patient admitted with encephalopathy, was not protecting airways, received 4 L of IV fluid bolus, once in the ICU she developed respiratory distress was intubated. She was also given racemic epinephrine for some questionable stridor 10/18: Extubated Currently on room air Continue incentive spirometry Continue bronchodilators (5) Acute kidney injury: Code(s): N17.9 - Acute kidney failure, unspecified Status: Acute Assessment and Plan: Patient presented with acute kidney injury likely related to hypovolemia, rhabdomyolysis, bacteremia, sepsis/septic shock -adequately fluid-resuscitated -urine output has been adequate -creatinine normal -continue to monitor renal function, electrolytes and urine output -Renal ultrasound no hydronephrosis, minimal right perinephric fluid (6) Non-ST elevation myocardial infarction (NSTEMI): Code(s): I21.4 - Non-ST elevation (NSTEMI) myocardial infarction Status: Acute Assessment and Plan: Troponins on admission were 9.650->10.700-->10.700->11.000-->5.460 -patient diagnosed with NSTEMI, -status post heparin infusion -continue aspirin 81 mg -echo reviewed -cardiology following -patient will require ischemic workup once stable (7) Cardiomyopathy: Code(s): I42.9 - Cardiomyopathy, unspecified Status: Acute Assessment and Plan: 10/13/2022 echocardiogram: Showed EF 30-35%, [id number] mitral valve regurg RV systolic function is reduced New onset cardiomyopathy could be related to NSTEMI, septic shock -will require ischemic workup eventually -cardiology following -continue lisinopril, metoprolol, hold spironolactone (8) Electrolyte abnormality: Code(s): E87.8 - Other disorders of electrolyte and fluid balance, not elsewhere classified Status: Acute Assessment and Plan: Hypernatremia: Resolved. Discontinue IV fluids. Monitor BMP (9) Embolic stroke: Code(s): I63.9 - Cerebral infarction, unspecified Status: Acute Assessment and Plan: MRI 10/20 showed Multiple areas of focal acute infarc
[2022-10-26] MEDS: SILVERGEL (ELTA) 45 ML 1 APPLIC TOPICAL (12:58)
--- NOTE | 2022-10-26 13:10 | PCNFU ---
Nutrition Follow-Up Complete: Inadequate Energy Expenditure as related to mechanical ventilation as evidenced by NPO/enternal feeding requirments. Goal: Meet estimanted nutritional needs. - Not meeting goal PO, continue with same goal Pt current nutrition is 2 g Na diet, soft & bite sized level6. Ensure compact BID for additional 220 kcal and 9 g protein each. Candido BID for 90 kcal and 2.5 g protein each to support wound healing. Intakes are sporadic, 0-100%, 25% average. Nutrition recommendation: Continue with current nutrition care plan. Agree with current orders. Last recorded weight is 61.3 kg. Bowel Motility: No BMs are charted since FMS was removed Labs Reviewed: Hgb 6.7, Hct 22.6, Alb 2.6, Na 135, K+ 3.1, BUN 23 Meds Noted: Protonix, Lovenox Skin: Stage II pressure injury to coccyx Additional Notes: Intakes are poor int eh context of acute illness. Appropriate supplements are ordered. Continue with current care plan and orders. Will monitor weight, labs, tube feeding tolerance, skin every Wednesday and Wednesday.
--- NOTE | 2022-10-26 14:27 | PM.TDS ---
Transfer Discharge Sum: Prov Provider Date of admission: 10/12/22 18:57 Primary care physician: Red Whitaker, Admitting clinician: Duc Umaña MD Consults: 10/13/22 Consult to Physician Routine Comment: Consulting Provider: Roberto Vences Reason for consultation: respiratory failure, altered LOC Has provider been notified: Yes 10/13/22 09:58 Consult to Physician Routine Comment: left message for Jocelyn @ 1007 (, ) Consulting Provider: Jocelyn Vines call center recruiter/MD group to consult: Cardiology Reason for consultation: NSTEMI Has provider been notified: Yes 10/14/22 10:18 Consult to Physician Routine Comment: Spoke with the and notified him of consult Consulting Provider: Jam Clark call center recruiter/ group to consult: Neurology Reason for consultation: Encephlopathy Has provider been notified: Yes 10/21/22 Consult to Physician Routine Comment: Spoke with and notified him of consult Consulting Provider: Jam Clark call center recruiter/ group to consult: Neurology Reason for consultation: Embolic CVA Has provider been notified: Yes 10/26/22 Wound/ET Consult Routine Reason for Consult:: possible pressure ulcer on coccyx DS: Admitting Diagnosis Discharge Date 10/26/2022 Admitting Diagnosis Altered mental status DS: Discharge Diagnosis Discharge Diagnosis (1) DVT (deep venous thrombosis): Code(s): I82.409 - Acute embolism and thrombosis of unspecified deep veins of unspecified lower extremity Status: Acute (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, unspecified Status: Acute (3) Embolic stroke: Code(s): I63.9 - Cerebral infarction, unspecified Status: Acute (4) Infective endocarditis: Code(s): I33.0 - Acute and subacute infective endocarditis Status: Acute (5) Cardiomyopathy: Code(s): I42.9 - Cardiomyopathy, unspecified Status: Acute (6) Bacteremia: Code(s): R78.81 - Bacteremia Status: Acute (7) Electrolyte abnormality: Code(s): E87.8 - Other disorders of electrolyte and fluid balance, not elsewhere classified Status: Acute (8) Atrial flutter: Code(s): I48.92 - Unspecified atrial flutter Status: Acute (9) Septic shock: Code(s): A41.9 - Sepsis, unspecified organism; R65.21 - Severe sepsis with septic shock Status: Acute (10) Rhabdomyolysis: Code(s): M62.82 - Rhabdomyolysis Status: Acute (11) Non-ST elevation myocardial infarction (NSTEMI): Code(s): I21.4 - Non-ST elevation (NSTEMI) myocardial infarction Status: Acute (12) Encephalopathy: Code(s): G93.40 - Encephalopathy, unspecified Status: Acute Transfer Discharge Sum: Med Medications Active and Home Medications: Home Medications cyclobenzaprine 10 mg tablet 10 mg PO TID PRN muscle spasm #20 tabs 10/08/22 [Rx Confirmed 10/12/22] lisinopril 20 mg tablet 20 mg PO DAILY 10/08/22 [History Confirmed 10/12/22] methylprednisolone 4 mg tablets in a dose pack (Medrol (Sanya)) See Rx Instructions PO .COMPLEX #21 ea 10/08/22 [Rx Confirmed 10/12/22] simvastatin 40 mg tablet 40 mg PO DAILY 10/08/22 [History Confirmed 10/12/22] Active Medications Acetaminophen (Acetaminophen 325 Mg Tablet) 650 mg PO Q6H PRN PRN Reason: Mild Pain (1-3) or Fever Last Admin: 10/26/22 12:50 Dose: 650 mg Aspirin (Aspirin 81 Mg Chewable Tablet) 81 mg BY MOUTH DAILY@0800 [facility] Last Admin: 10/26/22 08:50 Dose: 81 mg Atorvastatin Calcium (Atorvastatin 40 Mg Tablet) 40 mg PO DAILY [facility] Last Admin: 10/20/22 08:44 Dose: 40 mg Dextrose (Dextrose 50% 25 Gm/50 Ml Syringe) 12.5 gm IV PUSH PRN PRN; Protocol PRN Reason: Hypoglycemia Docusate Sodium (Docusate Sodium 100 Mg Capsule) 100 mg PO DAILY [facility] Last Admin: 10/26/22 08:50 Dose: 100 mg Empagliflozin (Empagliflozin 10 Mg Tablet) 10 mg PO DAILY [facility] Last Admin: 10/26/22 08:51 D
--- NOTE | 2022-10-26 16:30 | PC.NURSE ---
1555: Makayla Mcnamara called and message left regarding transfer of pt to [place], [place]. 1615: Report called to PIYUSH Britt @ [place], [place]. 1630: Day Sears, [id number], called and message left regarding transfer of pt to [place], [place]
== END 2022-10-26 17:54 | disposition short-term general hospital (02) | DRG 870 ==
LOC: ANHED 18:56 → ANHICU 19:40 → ANHIMU 10-25 15:30
PROVIDERS: Emergency Medicine; Internal Medicine; Physician Assistant; Specialist; Admitting Provider Family Medicine; Emergency Provider Emergency Medicine; PCP Family Medicine Sports Medicine; Visit Provider Hospitalist
PROC: B24BZZ4 Ultrasonography of Heart with Aorta, Transesophageal (ICD-10-PCS; CPT 93312; principal; 2022-10-19 14:00)
DX: A41.01 Sepsis due to Methicillin susceptible Staphylococcus aureus (principal); J96.00 Acute respiratory failure, unspecified whether with hypoxia or hypercapnia; R65.21 Severe sepsis with septic shock; G93.41 Metabolic encephalopathy; I63.40 Cerebral infarction due to embolism of unspecified cerebral artery; I43 Cardiomyopathy in diseases classified elsewhere; E87.0 Hyperosmolality and hypernatremia; I50.20 Unspecified systolic (congestive) heart failure; I82.442 Acute embolism and thrombosis of left tibial vein; I10 Essential (primary) hypertension; E78.5 Hyperlipidemia, unspecified; M47.813 Spondylosis without myelopathy or radiculopathy, cervicothoracic region; I34.0 Nonrheumatic mitral (valve) insufficiency; F41.8 Other specified anxiety disorders; E87.6 Hypokalemia; I11.0 Hypertensive heart disease with heart failure; B95.61 Methicillin susceptible Staphylococcus aureus infection as the cause of diseases classified elsewhere; E86.1 Hypovolemia; Z88.6 Allergy status to analgesic agent
CPT/HCPCS: 31500; 36415; 36569; 36600; 70450; 70551; 71045; 71250; 71275; 72125; 73502; 74176; 74177; 76705; 76775; 80048; 80053; 80074; 80202; 80307; 81001; 82140; 82375; 82436; 82550; 82565; 82570; 82607; 82728; 82746; 82805; 82948; 83050; 83540; 83550; 83605; 83690; 83735; 84100; 84133; 84145; 84300; 84439; 84443; 84478; 84484; 85025; 85027; 85610; 85730; 85999; 86140; 86850; 86900; 86901; 86923; 87040; 87070; 87077; 87081; 87086; 87103; 87186; 87205; 87635; 92526; 92610; 93005; 93306; 93312; 93320; 93325; 93970; 94002; 94003; 94640; 94660; 95816; 97110; 97112; 97161; 97162; 97166; 97530; 99291; A9270; C1751; C9113; J0133; J0290; J0330; J0360; J0613; J0690; J0692; J0696; J1644; J1650; J1720; J1815; J1836; J2250; J2310; J2543; J2700; J2704; J3010; J3370; J3480; J7030; J7040; J7060; J7070; J7120; Q9967

== ENCOUNTER 2022-11-22 14:16 | Emergency (ER) | payer OTHER, SELFPAY ==
--- NOTE | ~2022-11-22 | XR_ITS ---
AP view of the pelvis and AP and lateral views of the right hip Clinical history: Pain Findings: No acute fracture or dislocation is seen. Osseous alignment is anatomic. There is moderate degenerative change of the right hip joint, and mild degenerative change of the left hip joint. Soft tissues are unremarkable. Impression: Moderate right hip joint degenerative change. Mild left hip joint degenerative change. Reviewed, dictated and finalized at location . Impression: Moderate right hip joint degenerative change. Mild left hip joint degenerative change.
--- NOTE | ~2022-11-22 | CT_ITS ---
Non-contrast Head CT History: Dizziness COMPARISON: 10/12/2022 Technique: Axial non-contrast imaging of the brain was performed. Dose reduction technique was used on this scan by utilizing automated exposure control and iterative reconstruction technique. The dose -length product (DLP) was 605.33 mGy-cm. Findings: There is no evidence of intracranial hemorrhage, mass lesion, or acute infarct. Brain par enchyma appears normal. The ventricles and subarachnoid spaces are normal in size. The calvarium ap pears normal. The visualized paranasal sinuses and mastoid air cells are clear. Impression: No significant abnormality seen. Reviewed, dictated and finalized at location . Impression: No significant abnormality seen.
[2022-11-22 14:26] VITALS: BP 101/66; PULSE 91; RESP 18; TEMP 36.6; O2SAT 98
--- NOTE | 2022-11-22 15:36 | PC.NURSE ---
PT to triage desk c/o dizziness. Dr. Trivedi notified, VO for Brain CT received
[2022-11-22 16:14] VITALS: BP 112/83; PULSE 88; RESP 16; O2SAT 96
--- NOTE | 2022-11-22 16:27 | ED.GENADULT ---
HPI - General Adult General Chief complaint: Fall Stated complaint: Ground level fall- elquis Time Seen by Provider: 11/22/22 15:48 Source: patient Mode of arrival: ambulatory Limitations: no limitations History of Present Illness HPI narrative: This is a 62-year-old female who presents to the ED via EMS from residential for chief complaint of a mechanical fall that occurred just prior to arrival. She is not any blood thinners. She had a stroke in the recent past and was there for rehab. She states she got up of her cells today and trying to transfer to the bathroom on her own and with help which she is supposed to have. She stumbled because her legs are weak and she fell onto the right side. Denies any head injury or LOC. He denies any subsequent new numbness, weakness or other neurologic symptoms. She reports right lateral hip pain but otherwise denies any further injury. Related Data Home Medications Medication Instructions Recorded Confirmed lisinopril 20 mg tablet 20 mg PO DAILY 10/08/22 10/12/22 simvastatin 40 mg tablet 40 mg PO DAILY 10/08/22 10/12/22 Allergies Allergy/AdvReac Type Severity Reaction Status Date / Time codeine AdvReac Mild Vomiting Verified 11/22/22 15:48 Review of Systems Review of Systems: All systems as dictated in HPI [facility] Past Medical History Medical History (Updated 11/22/22 @ 16:29 by Derek Romero PA-C) Anxiety Arthritis Depression Endocarditis of mitral valve Essential (primary) hypertension Fracture of distal fibula (06/27/19) High cholesterol Hyperlipidemia Hypertension Impetigo Seasonal allergies Surgical History Surgical History No history of previous surgery Family History Family History Father Family history of arthritis Other Hypertension Social History Social History (Updated 10/13/22 @ 23:06 by Lela Greer PA-C) Smoking packs per day: 0.15 Smoking cigarettes per day: 3.0 Smoking status: Former smoker Second hand tobacco smoke exposure: Yes Smoking end date: 03/22/09 Alcohol intake: unknown Substance use: unknown Occupation/Education: occupation Additional occupation/education comments: [employer] Spiritual care concerns: No Exam Narrative: GENERAL: Well-appearing, well-nourished, and in no acute distress. HEAD: Normocephalic, atraumatic. EYES: PERRLA and EOMI. ENT: Nares clear, no rhinorrhea or epistaxis. Mucous membranes moist. Oropharynx without tonsillar hypertrophy exudate or other lesions. NECK: Supple. No adenopathy or masses. CHEST: No respiratory distress. Clear to auscultation. No wheezes rales or rhonchi HEART: Regular rate and rhythm. No murmur heard. Normal peripheral pulses. ABDOMEN: Soft, nontender, nondistended, normal active bowel sounds. MSK: lateral tenderness to the right hip. Full range of motion actively. No pain with logroll of the right hip. Neurovascularly intact distally. Left lower extremity benign. SKIN: Warm, dry, no rash. NEURO: Alert and oriented x3. No focal deficits. PSYCH: Normal mood and affect. Course Vital Signs Vital signs: Vital Signs Temperature 97.9 F 11/22/22 14:26 Pulse Rate 91 11/22/22 14:26 Respiratory Rate 18 11/22/22 14:26 Blood Pressure 101/66 11/22/22 14:26 Pulse Oximetry 98 11/22/22 14:26 Oxygen Delivery Room Air 11/22/22 14:26 Temperature 97.9 F 11/22/22 14:26 Pulse Rate 88 11/22/22 16:14 Respiratory Rate 16 11/22/22 16:14 Blood Pressure 112/83 11/22/22 16:14 Pulse Oximetry 96 11/22/22 16:14 Oxygen Delivery Room Air 11/22/22 14:26 Medical Decision Making MDM Narrative Medical decision making narrative: This is a 62-year-old female who presents to the ED with chief complaint of a right hip injury. She is coming from rehab residential. She is on blood thin
[2022-11-22] MEDS: ACETAMINOPHEN 500 MG TABLET 1000 MG PO (16:30)
== END 2022-11-22 21:16 ==
PROVIDERS: Emergency Provider Physician Assistant; PCP Family Medicine Sports Medicine
DX: S79.911A Unspecified injury of right hip, initial encounter (principal); I10 Essential (primary) hypertension; E78.00 Pure hypercholesterolemia, unspecified; M19.90 Unspecified osteoarthritis, unspecified site; I05.9 Rheumatic mitral valve disease, unspecified; Z86.73 Personal history of transient ischemic attack (TIA), and cerebral infarction without residual deficits; Z87.891 Personal history of nicotine dependence; W01.0XXA Fall on same level from slipping, tripping and stumbling without subsequent striking against object, initial encounter
CPT/HCPCS: 70450; 73502; 99284; A9270